=== PATIENT | male | born 1955 | race Caucasian/White ===

== ENCOUNTER 2016-09-13 02:40 | Inpatient (IN) ==
[2016-09-13] MEDS ORDERED: methylPREDNISolone SOD SUC 125 MG/2 ML VIAL IV STA (03:22)
[2016-09-13] MEDS ORDERED: HYDROmorphone 2 MG/1 ML VIAL IV STA ×2 (03:22→04:55)
[2016-09-13] MEDS ORDERED: LEVOFLOXACIN INJ 750 MG in PREMIX 1 EACH IV STA (03:22)
--- NOTE | 2016-09-13 03:28 | EKG Report ---
Stationary ECG Study [facility] ER Test Date: 09/13/2016 2:52:14 AM Pat Name: SUZANNE DUNCAN Department: Room: Gender: M Math Tutor: Mitchell : 1955 Requested by: Nehemias Greene Order Number: [id number] Reading MD: LARRY RIVERA Intervals [place] [facility] Rate: 92 P: 40 MI: 194 QRS: 27 QRSD: 94 T: 68 QT: 366 QTc: 415 Interpretive Statements SINUS RHYTHM Electronically Signed On 09-13-16 19:07:40 MILLER APPRENTICE by LARRY RIVERA [email or web address]
[2016-09-13] MEDS ORDERED: ALBUTEROL 2.5 MG/3 ML NEB RESP TX SCH (03:30)
[2016-09-13] MEDS ORDERED: LEVOFLOXACIN INJ 150 ML IV ONE (03:31)
[2016-09-13] MEDS ORDERED: TERBUTALINE 1 MG/1 ML VIAL SUBCUT ONE (03:31)
--- NOTE | 2016-09-13 03:32 | Emergency Department Note ---
Arrival - Arrival Chief Complaint: Shortness of Breath Stated Complaint: kidney stones/heart sob ED Nursing Triage Note: pt to triage c/o abd pain since last night. pt had litho for a 18 stone in right kidney on saturday. pt sees dr bermudez. pt was seen in dr carol irvin office and had low sats in 70. dr irvin wanted to admit , pt refused. pt sats 83 on room air in triage Mode of Arrival: Stretcher Limitations: No Limitations Source: Patient Time Seen by Provider: 09/13/16 03:22 - History of Present Illness HPI Narrative: This 61-year-old white male presents with progressive exacerbation of COPD with continuous wheezing, low-grade temperatures, and discolored sputum production. Compounding this is the fact that the patient had lithotripsy 48 hours ago and is continuing to have significant right flank pain without passage of material or hematuria noted by the patient. He denies any chest pain or palpitations. Currently although uncomfortable he does not appear in any acute distress. Onset (ago): day(s) (patient presents cell days post-onset of symptoms) Consistency: constant Severity: moderate Allergies/Adverse Reactions: Allergies Allergy/AdvReac Type Severity Reaction Status Date / Time Sulfa (Sulfonamide Allergy RASH Verified 09/13/16 02:50 Antibiotics) celecoxib [From Celebrex] AdvReac Severe difficulty Verified 09/13/16 02:50 voiding morphine AdvReac Severe Confusion Verified 09/13/16 02:50 cefixime [From Suprax] AdvReac Unknown Swelling Verified 09/13/16 02:50 of Lip/Tongue/Throat Amoxicillin AdvReac Unknown/Unable Verified 09/13/16 02:50 to obtain Home Medications: Home Medications Medication Instructions Recorded Confirmed Type Aspirin Tab 325 mg PO DAILY 02/08/15 09/10/16 History Atorvastatin [Lipitor] 20 mg PO BEDTIME 02/08/15 09/10/16 History Furosemide Tab [Lasix Tab] 20 mg PO DAILY 02/08/15 09/10/16 History Levothyroxine Tab [Synthroid Tab] 100 mcg PO DAILY@0700 02/08/15 09/10/16 History Metoprolol Succinate Xl [Toprol Xl] 100 mg PO DAILY 02/08/15 09/10/16 History Omeprazole [Prilosec] 20 mg PO DAILY 02/08/15 09/10/16 History Potassium Chloride 10 meq PO BID 02/08/15 09/10/16 History amLODIPine [Norvasc] 10 mg PO DAILY 02/08/15 09/10/16 History rOPINIRole [Requip] 0.5 mg PO BEDTIME 11/02/15 09/10/16 History Tamsulosin [Flomax] 0.4 mg PO DAILY 09/10/16 09/10/16 History Review of System - Review of System 12 point system: reviewed and no additional remarkable complaints except as stated - Review of System Constitutional: Present: as per HPI Respiratory: Present: as per HPI Genitourinary male: Present: as per HPI Medical,Surgical,& Family Hx - Medical History Cardio: History of: Cerebrovascular Disease, Hypertension No history of: Aneurysm, Cardiac Dysrhythmia, Congenital Heart Disease, CHF, CAD, [place], Pacemaker, PVD, Valvular Heart Disease, Cardiovascular Problems Psychological: No history of: Psychiatric Problems Neurology: History of: Cerebrovascular Accident (1980), Peripheral Neuropathy No history of: Brain Aneurysm, Cerebral Hemorrhage, Cerebral Palsy, Dementia , Migraine, Multiple Sclerosis, Parkinson's Disease, Seizures, TIA, Vertigo, Neurologocal Cancer, Neurological Problems HEENT: History of: Ear Problem ([place]), Eye Problem (reading glasses) Endocrine: History of: Dyslipidemia, Thyroid Disorder Rheumatology: History of;: Rheumatoid Arthritis No history of;: Fibromyalgia, Gout, Myasthenia Gravis, Rheumatological Problems Respiratory: No history of: Respiratory Problems Renal: History of: Renal Problems (long history of ureteral lithiasis) Genitourinary: History of: Kidney Stones Gastrointestinal: History of: Diverticulitis/ Diverticulosis, GERD, Hemorrhoids , GI Problems No history of: Hepatitis, Liver Problems, Polyps Musculoskeletal: History of: Back/Neck Problems, Degenerative Disk Disease No history of: Herniated Disk, Osteoporosis, Musculoskeletal Cancer, Musculoskeletal Problems Hematology: History of: Clotting Problems (hematoma surgery to left leg 1979) No history of: Blood Transfusion Reaction Other: History of: MRSA (left leg and right arm) No history of: Anesthesia Reactions, Cancer - Surgical History Cardiac Surgeries: Sugical HX of: Cardiac Catheterization, Cardiac Surgery ( 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), Carotid Endarterectomy (right) Patient Denies: Femoral-Popliteal Bypass Graft, Internal Defibrillator, Vascular Access Devices Thoracic Surgeries: Surgical HX of;: Kidney (Renal Surgery) (BILATERAL), Lithotripsy Neurologic Surgeries: Patient denies: Brain Aneurysm, Cerebral Hemorrhage, Neurologic Surgery HEENT Surgeries: Surgical HX of: Carotid Endarterectomy (right), Eye Surgery ( cataract left eye) Patient denies: Tonsilectomy & Adenoidectomy Abdominal Surgeries: Surgical HX of: Abdominal Surgery (COLECTOMY DR LUCINA CASEY 10/2015.), Appendectomy, Cholecystectomy, Colonoscopy (11/02/2015), EGD, Hernia Repair (dr mcintyre 8-9 years ago) Patient denies: Splenectomy Orthopedic Surgeries: Surgical HX of;: Orthopedic Surgery (right shoulder replacement, left ankle fusion x2, LT ARM SURGERY, LT LEG SX), Total Hip Replacement, Total Knee Replacement (bilateral) - Family History Family History: Reports;: Family Cancer (father), Family Diabetes (mother), Family Heart Disease (mother brother) Denies;: Family Anesthesia Reaction, Family Hypertension, Family Psychiatric Problems, Family Stroke - Social History Smoking Status: Never smoker Frequency of Alcohol Use: None Type of Drug Use: None Exam Physical Examination: GENERAL: Well developed, well nourished elderly white male in no acute distress. HEENT: Normocephalic. No trauma. Moist mucous membranes. EOMI. PERRLA. ENT clear NECK: Supple. No adenopathy. CARDIAC: Regular. No murmurs. Heart rate 92. CHEST: Clear to auscultation. No respiratory distress. ABDOMEN: Soft. Nontender. Active bowel sounds. EXTREMITIES: No trauma. Normal ROM. No pedal edema. SKIN: No diaphoresis. No rash. NEURO: Alert. Neuro intact No focal deficits. Vital Signs: Vital Signs Temperature 98.5 F 09/13/16 02:44 Pulse Rate 90 09/13/16 03:37 Respiratory Rate 25 H 09/13/16 03:37 Blood Pressure 164/84 09/13/16 02:44 O2 Sat by Pulse Oximetry 95 09/13/16 03:37 Course - Reevaluation(s) Reevaluation #1: Discussed with patient hospitalization for stabilization of lungs and reevaluate renal stone status - Consultations Consultation #1: Discussed with Dr. Christopher Goodson who will admit to Dr. Irvin for further evaluation and treatment. Results - Labs CBC & BMP: 09/13/16 03:35 02/02/17 03:35 Labs: I reviewed the laboratory - Impressions EKG: Sinus rhythm at 92 with normal OK interval and QRS duration. Normal ST segments. No acute injury pattern noted. - Diagnostic Findings Procedure: Chest x-ray: image reviewed by me, report reviewed by me (no acute disease) Disposition Clinical Impression: exacerbation COPD, persistent renal colic, exacerbation COPD, COPD exacerbation , Renal colic Case discussed with: patient Disposition: Still a Patient Time of Disposition: 05:21
[2016-09-13 03:37] LABS: Basophils # 0.1 10*3/uL (0.0-0.2); Basophils % 0.5 % (0.0-0.8); Eosinophils # 0.2 10*3/uL (0.0-0.87); Eosinophils % 1.5 % (0.00-10.9); Hemoglobin 12.9 GM/DL (14.0-18.0); Immature Granulocytes % 0.5 %; Immature Granulocytes Absolute 0.05 #; Lymphocytes # 1.4 10*3/uL (1.4-4.0); Lymphocytes % 13.4 % (21.2-54.2); Mean Corpuscular HGB Conc 31.5 GM/DL (32-36); Mean Corpuscular Hemoglobin 33 PG (27-34); Mean Corpuscular Volume 104.3 FL (87-102); Mean Platelet Volume 9.3 FL (9.6-12.0); Monocytes # 0.9 10*3/uL (0.11-0.8); Monocytes % 8.6 % (1.7-12.7); Neutrophils # 7.8 10*3/uL (1.4-7.4); Neutrophils % 75.5 % (38.7-73.9); Platelet Count 211 T/CUMM (130-400); Red Blood Count 3.93 MC/CUMM (3.8-5.5); Red Cell Distribution Width 15.3 % (9.3-17.3); White Blood Count 10.3 T/CUMM (4-12)
[2016-09-13] MEDS: TERBUTALINE 1 MG/1 ML VIAL SUBCUT SCH ×2 (03:37→04:04)
[2016-09-13] MEDS ORDERED: HYDROmorphone 2 MG/1 ML VIAL ONE ×2 (03:38→04:58)
[2016-09-13] MEDS ORDERED: methylPREDNISolone SOD SUC 125 MG/2 ML VIAL ONE (03:38)
[2016-09-13 03:47] LABS: PT Patient Result 10.7 SECS
[2016-09-13 03:57] LABS: Alanine Aminotransferase 32 U/L (16-61); Albumin 4.1 G/DL (3.4-5.0); Alkaline Phosphatase 124 U/L (45-117); Aspartate Amino Transferase 22 U/L (0-37); Blood Urea Nitrogen 22 MG/DL (7-18); Calcium 8.8 MG/DL (8.5-10.1); Glucose 144 MG/DL (74-106); Osmolality,Calculated 288.1 MOS/KG (273-304); Potassium 3.7 MMOL/L (3.5-5.1); Sodium 142 MMOL/L (136-145); Total Protein 7.7 G/DL (6.4-8.3); Troponin I Only < 0.015 NG/ML (0.00-0.045)
[2016-09-13] MEDS ORDERED: ATORVASTATIN 40 MG TABLET PO STA (05:24)
[2016-09-13] MEDS ORDERED: METOPROLOL SUCCINATE XL 100 MG TABLET PO ONE (05:24)
[2016-09-13] MEDS ORDERED: ONDANSETRON 4 MG/2 ML VIAL IV PRN (05:24)
[2016-09-13] MEDS ORDERED: amLODIPine 5 MG TABLET PO STA (05:24)
[2016-09-13] MEDS: LEVOTHYROXINE 100 MCG TABLET PO SCH (06:22)
--- NOTE | 2016-09-13 06:31 | XRay Report ---
Referring Physician: Nehemias Orellana Exam: XR chest 1V portable Date: September 13, 2016 at 3:16 AM Reason: Shortness of breath Comparison: Chest one view portable November 06, 2015 Findings: The cardiac silhouette is upper normal in size. There are minimal scattered opacities within both lower lung zones. This likely represents atelectasis and possibly minimal pulmonary edema. No pneumothorax is identified. No acute osseous process is seen. Note is made of surgical change at the right shoulder with a proximal right humeral prosthesis. Impression: There are minimal scattered opacities within both lower lung zones. This likely represents atelectasis and possibly minimal pulmonary edema. PROCEDURE INTERPRETED AT [facility] DEPARTMENT OF RADIOLOGY Final Report Signed by: Dr. Linda LEE
[2016-09-13] MEDS: HYDROmorphone 2 MG/1 ML VIAL IV PRN ×2 (06:34→10:24)
[2016-09-13 07:55] LABS: Pt O2 Delivery Device Venturi Mask
[2016-09-13 07:56] LABS: ABG Base Excess 1.8 MMOL/L (-2.5-2.5); ABG HCO3 25.8 MMOL/L (20-26); ABG Oxygen Saturation 90.1 % (95-100); ABG PO2 62.2 MM HG (80-95); ABG TCO2 26.7 MMOL/L (23-27)
--- NOTE | 2016-09-13 08:08 | Pulmonology Consult Note ---
Assessment and Plan (1) Congestive heart failure Status: Acute Assessment and plan: Patient has elevated BNP and edema. Basilar crackles. I suspect he is ahead on fluids and may have congestive heart failure. We need an echo cardiogram. Agree with empiric diuresis. Current Visit: Yes (2) Acute and chronic respiratory failure Status: Acute Assessment and plan: ABG show hypoxemia with an elevated PCO2. Patient has never been a smoker. He may have obesity hypoventilation syndrome. It does not appear that he has overdosed on pain medications. Pulmonary embolism is a consideration as well having had a hip replacement 2 months ago. Will evaluate with a CT PE protocol , echocardiogram, and venous Dopplers. Chronic interstitial lung disease is a possibility as well. Agree with empiric treatment with antibiotics. Current Visit: Yes (3) Renal calculus, right Status: Chronic Assessment and plan: Had recent lithotripsy and still having some flank pain. Current Visit: No (4) Hypertensive cardiovascular disease Status: Chronic Assessment and plan: Blood pressure is a little on the high side. Need to try to get systolic to 140 or less. Current Visit: No History of Present Illness Chief complaint: shortness of breath History of present illness: Mr. Koroma is a 61 year old male who had a lithotripsy a few days ago. He had fever that evening. He was short of breath yesterday and saw Dr. Jaffe in the office. He declined admission. He came into the emergency room early this morning with an O2 sat in the low 80s on room air. He was admitted to ICU. He' s now on 50% Ventimask with an O2 sat in the low 90s. Patient has never been a smoker. He has had a mild cough but is not coughing up sputum. He's been more short of breath over the last couple of months. He had a hip replacement about 2-3 months ago. He had right colon surgery 8 or 9 months ago for a perforated diverticulitis. Patient worked doing electrical work. He's never had any motion of asbestos. He does not know of any heart disease. Home Medications Medication Instructions Recorded Confirmed Type Aspirin Tab 325 mg PO DAILY 02/08/15 09/13/16 History Atorvastatin [Lipitor] 20 mg PO BEDTIME 02/08/15 09/13/16 History Levothyroxine Tab [Synthroid Tab] 100 mcg PO DAILY@0700 02/08/15 09/13/16 History Metoprolol Succinate Xl [Toprol Xl] 100 mg PO DAILY 02/08/15 09/13/16 History Omeprazole [Prilosec] 20 mg PO DAILY 02/08/15 09/13/16 History Potassium Chloride 10 meq PO BID 02/08/15 09/13/16 History amLODIPine [Norvasc] 10 mg PO DAILY 02/08/15 09/13/16 History rOPINIRole [Requip] 0.5 mg PO BEDTIME 11/02/15 09/13/16 History Tamsulosin [Flomax] 0.4 mg PO DAILY 09/10/16 09/13/16 History Furosemide Tab [Lasix Tab] 40 mg PO DAILY 09/13/16 09/13/16 History metOLazone [Metolazone] 2.5 mg PO DAILY 09/13/16 09/13/16 History Allergies Allergy/AdvReac Type Severity Reaction Status Date / Time Sulfa (Sulfonamide Allergy RASH Verified 09/13/16 02:50 Antibiotics) celecoxib [From Celebrex] AdvReac Severe difficulty Verified 09/13/16 02:50 voiding morphine AdvReac Severe Confusion Verified 09/13/16 02:50 cefixime [From Suprax] AdvReac Unknown Swelling Verified 09/13/16 02:50 of Lip/Tongue/Throat Amoxicillin AdvReac Unknown/Unable Verified 09/13/16 02:50 to obtain 12 point system: reviewed and no additional remarkable complaints except as stated - Constitutional Constitutional: Present: fatigue - Cardiovascular Cardiovascular: Present: dyspnea, dyspnea on exertion - Respiratory Respiratory: Present: dyspnea, dyspnea on exertion - Genitourinary Genitourinary: Present: flank pain, hematuria Exam (Pulmonay) H&P - Constitutional Vitals: Period Temp Pulse Resp BP Sys/Wynn Pulse Ox Last 24 Hr 98.2 F 98-105 17-24 151-181/90-121 86-90 Exam: Patient is alert and oriented and cooperative. Systolic blood pressure around 150/100. Vital signs otherwise normal. O2 sat 92% on 50% Ventimask. Pupils react to light. Throat is clear. Neck is supple no bruits. Chest reveals bilateral crackles in the bases. Heart normal rate rhythm no murmurs no rubs no gallops. Abdomen soft obese. Scar in the right upper quadrant from previous gallbladder surgery. Bowel sounds present. Nontender. Extremities no clubbing or cyanosis. He has 1+ edema. Medical,Surgical,& Family Hx - Medical History Cardio: History of: Cerebrovascular Disease, Hypertension No history of: Aneurysm, Cardiac Dysrhythmia, Congenital Heart Disease, CHF, CAD, [place], Pacemaker, PVD, Valvular Heart Disease, Cardiovascular Problems Psychological: No history of: Psychiatric Problems Neurology: History of: Cerebrovascular Accident (1980), Peripheral Neuropathy No history of: Brain Aneurysm, Cerebral Hemorrhage, Cerebral Palsy, Dementia , Migraine, Multiple Sclerosis, Parkinson's Disease, Seizures, TIA, Vertigo, Neurologocal Cancer, Neurological Problems HEENT: History of: Ear Problem ([place]), Eye Problem (reading glasses) Endocrine: History of: Dyslipidemia, Thyroid Disorder Rheumatology: History of;: Rheumatoid Arthritis No history of;: Fibromyalgia, Gout, Myasthenia Gravis, Rheumatological Problems Respiratory: No history of: Respiratory Problems Renal: History of: Renal Problems (long history of ureteral lithiasis) Genitourinary: History of: Kidney Stones (lithotripsy done saturday) Gastrointestinal: History of: Diverticulitis/ Diverticulosis, GERD, Hemorrhoids , GI Problems No history of: Hepatitis, Liver Problems, Polyps Musculoskeletal: History of: Back/Neck Problems, Degenerative Disk Disease No history of: Herniated Disk, Osteoporosis, Musculoskeletal Cancer, Musculoskeletal Problems Hematology: History of: Clotting Problems (hematoma surgery to left leg 1979) No history of: Blood Transfusion Reaction Other: History of: MRSA (left leg and right arm) No history of: Anesthesia Reactions, Cancer - Surgical History Cardiac Surgeries: Sugical HX of: Cardiac Catheterization, Cardiac Surgery ( 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), Carotid Endarterectomy (right) Patient Denies: Femoral-Popliteal Bypass Graft, Internal Defibrillator, Vascular Access Devices Thoracic Surgeries: Surgical HX of;: Kidney (Renal Surgery) (BILATERAL), Lithotripsy Neurologic Surgeries: Patient denies: Brain Aneurysm, Cerebral Hemorrhage, Neurologic Surgery HEENT Surgeries: Surgical HX of: Carotid Endarterectomy (right), Eye Surgery ( cataract left eye) Patient denies: Tonsilectomy & Adenoidectomy Abdominal Surgeries: Surgical HX of: Abdominal Surgery (COLECTOMY DR LUCINA CASEY 10/2015.), Appendectomy, Cholecystectomy, Colonoscopy (11/02/2015), EGD, Hernia Repair (dr mcintyre 8-9 years ago) Patient denies: Splenectomy Orthopedic Surgeries: Surgical HX of;: Orthopedic Surgery (right shoulder replacement, left ankle fusion x2, LT ARM SURGERY, LT LEG SX), Total Hip Replacement, Total Knee Replacement (bilateral) - Family History Family History: Reports;: Family Cancer (father), Family Diabetes (mother), Family Heart Disease (mother brother) Denies;: Family Anesthesia Reaction, Family Hypertension, Family Psychiatric Problems, Family Stroke - Social History Smoking Status: Never smoker Frequency of Alcohol Use: None Type of Drug Use: None Results - Labs CBC & BMP: 09/13/16 03:35 09/13/16 03:35 Lab Results: I have reviewed the past 24 hour labs - Diagnostic Findings Procedure: Chest x-ray: image reviewed by me (slightly increased interstitial markings. Heart is borderline enlarged.)
--- NOTE | 2016-09-13 08:11 | Family Practice History&Phys ---
History of Present Illness Chief complaint: Shortness of breath History of present illness: Mr. Koroma is a 61 year old male Patient is a 61-year-old white male who presented to the office yesterday complaining of increasing shortness of breath and dyspnea on exertion. Patient states that been going on for the last week but his thought it been going on much longer than that. EKG in the office revealed to have sinus rhythm with occasional PACs. Chest x-ray in the office room have diffuse increased interstitial changes consistent with some congestive heart failure. Patient was noted to be quite hypoxic in the office and I urged him to come in the hospital but he flatly refused. His could not sway him either. Patient apparently got worse in the night and changed his mind. Thankfully had a bed available for him. Patient's had recent ESWL for a large right renal stone. He denies any fever or chills and states she is not coughing up any sputum. He denies any chest pain of any nature. Home Medications Medication Instructions Recorded Confirmed Type Aspirin Tab 325 mg PO DAILY 02/08/15 09/13/16 History Atorvastatin [Lipitor] 20 mg PO BEDTIME 02/08/15 09/13/16 History Levothyroxine Tab [Synthroid Tab] 100 mcg PO DAILY@0700 02/08/15 09/13/16 History Metoprolol Succinate Xl [Toprol Xl] 100 mg PO DAILY 02/08/15 09/13/16 History Omeprazole [Prilosec] 20 mg PO DAILY 02/08/15 09/13/16 History Potassium Chloride 10 meq PO BID 02/08/15 09/13/16 History amLODIPine [Norvasc] 10 mg PO DAILY 02/08/15 09/13/16 History rOPINIRole [Requip] 0.5 mg PO BEDTIME 11/02/15 09/13/16 History Tamsulosin [Flomax] 0.4 mg PO DAILY 09/10/16 09/13/16 History Furosemide Tab [Lasix Tab] 40 mg PO DAILY 09/13/16 09/13/16 History metOLazone [Metolazone] 2.5 mg PO DAILY 09/13/16 09/13/16 History Allergies Allergy/AdvReac Type Severity Reaction Status Date / Time Sulfa (Sulfonamide Allergy RASH Verified 09/13/16 02:50 Antibiotics) celecoxib [From Celebrex] AdvReac Severe difficulty Verified 09/13/16 02:50 voiding morphine AdvReac Severe Confusion Verified 09/13/16 02:50 cefixime [From Suprax] AdvReac Unknown Swelling Verified 09/13/16 02:50 of Lip/Tongue/Throat Amoxicillin AdvReac Unknown/Unable Verified 09/13/16 02:50 to obtain - Constitutional Constitutional: Present: fatigue, weakness. Absent: chills, fever(s) - EENT Eyes: Absent: blurry vision, loss of vision Ears: Absent: decreased hearing, ear pain Nose, mouth and throat: Absent: hoarseness, nasal congestion, sinus pressure, sore throat - Cardiovascular Cardiovascular: Present: dyspnea, dyspnea on exertion. Absent: chest pain at rest, chest pain with activity, orthopnea, palpitations, PND - Respiratory Respiratory: Present: cough, dyspnea, dyspnea on exertion, wheezing. Absent: hemoptysis - Gastrointestinal Gastrointestinal: Absent: abdominal pain, diarrhea, dyspepsia, dysphagia, melena , nausea, vomiting - Genitourinary Genitourinary: Present: hematuria. Absent: dysuria, urinary frequency, urinary incontinence - Musculoskeletal Musculoskeletal: Present: back pain (This is chronic). Absent: arthralgias, joint swelling - Neurological Neurological: Absent: confusion, focal weakness, numbness, paresthesias - Psychiatric Psychiatric: Absent: anxiety, confusion - Endocrine Endocrine: Absent: fatigue, polydipsia, polyphagia Medical,Surgical,& Family Hx - Medical History Cardio: History of: Cerebrovascular Disease, Hypertension No history of: Aneurysm, Cardiac Dysrhythmia, Congenital Heart Disease, CHF, CAD, [place], Pacemaker, PVD, Valvular Heart Disease, Cardiovascular Problems Psychological: No history of: Psychiatric Problems Neurology: History of: Cerebrovascular Accident (1980), Peripheral Neuropathy No history of: Brain Aneurysm, Cerebral Hemorrhage, Cerebral Palsy, Dementia , Migraine, Multiple Sclerosis, Parkinson's Disease, Seizures, TIA, Vertigo, Neurologocal Cancer, Neurological Problems HEENT: History of: Ear Problem ([place]), Eye Problem (reading glasses) Endocrine: History of: Dyslipidemia, Thyroid Disorder Rheumatology: History of;: Rheumatoid Arthritis No history of;: Fibromyalgia, Gout, Myasthenia Gravis, Rheumatological Problems Respiratory: No history of: Respiratory Problems Renal: History of: Renal Problems (long history of ureteral lithiasis) Genitourinary: History of: Kidney Stones (lithotripsy done saturday) Gastrointestinal: History of: Diverticulitis/ Diverticulosis, GERD, Hemorrhoids , GI Problems No history of: Hepatitis, Liver Problems, Polyps Musculoskeletal: History of: Back/Neck Problems, Degenerative Disk Disease No history of: Herniated Disk, Osteoporosis, Musculoskeletal Cancer, Musculoskeletal Problems Hematology: History of: Clotting Problems (hematoma surgery to left leg 1979) No history of: Blood Transfusion Reaction Other: History of: MRSA (left leg and right arm) No history of: Anesthesia Reactions, Cancer - Surgical History Cardiac Surgeries: Sugical HX of: Cardiac Catheterization, Cardiac Surgery ( 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), Carotid Endarterectomy (right) Patient Denies: Femoral-Popliteal Bypass Graft, Internal Defibrillator, Vascular Access Devices Thoracic Surgeries: Surgical HX of;: Kidney (Renal Surgery) (BILATERAL), Lithotripsy Neurologic Surgeries: Patient denies: Brain Aneurysm, Cerebral Hemorrhage, Neurologic Surgery HEENT Surgeries: Surgical HX of: Carotid Endarterectomy (right), Eye Surgery ( cataract left eye) Patient denies: Tonsilectomy & Adenoidectomy Abdominal Surgeries: Surgical HX of: Abdominal Surgery (COLECTOMY DR LUCINA CASEY 10/2015.), Appendectomy, Cholecystectomy, Colonoscopy (11/02/2015), EGD, Hernia Repair (dr mcintyre 8-9 years ago) Patient denies: Splenectomy Orthopedic Surgeries: Surgical HX of;: Orthopedic Surgery (right shoulder replacement, left ankle fusion x2, LT ARM SURGERY, LT LEG SX), Total Hip Replacement, Total Knee Replacement (bilateral) - Family History Family History: Reports;: Family Cancer (father), Family Diabetes (mother), Family Heart Disease (mother brother) Denies;: Family Anesthesia Reaction, Family Hypertension, Family Psychiatric Problems, Family Stroke - Social History Smoking Status: Never smoker Frequency of Alcohol Use: None Type of Drug Use: None Exam - Constitutional Vitals: Period Temp Pulse Resp BP Sys/Wynn Pulse Ox Last 24 Hr 98.2 F 98-105 17-24 151-181/90-121 86-90 Exam: General: Objective patient is a well-developed white male who is dyspneic at rest. Yesterday in the office he exhibited pursed lip breathing. He is able to give good history. In spite of his hypoxia he is in good spirits and his usual garrulous self HEENT: Pupils equal and reactive to light. Patent nares and airway Neck: No meningismus, adenopathy, thyromegaly. There are no auscultated carotid bruits. Cardiovascular: Regular rhythm. No murmurs or gallops Chest: Patient is noted to have expiratory rales at both bases and mild expiratory wheezes bilaterally. Abdomen: Soft nontender to palpation No masses, rebound, guarding or tenderness. Neuro: Cranial nerves intact and DTRs and strength symmetric in all extremities. Dermatologic: No evidence of abnormal lesions or masses. Musculoskeletal: There is no joint swelling or tenderness or deformity. Extremities: There is no calf swelling or tenderness., No edema seen My impression could not be entered in the computer the patient appears to have an atypical pneumonia as well as respiratory failure with CO2 retention. I am going to order CT the chest to ensure that is not had a pulmonary embolus, Dr. Castanon has been consulted as well. Results - Labs CBC & BMP: 09/13/16 03:35 09/13/16 03:35 Lab Results: I have reviewed the past 24 hour labs - Diagnostic Findings Procedure: Chest x-ray: report reviewed by me (Diffuse interstitial changes)
[2016-09-13] MEDS: PANTOPRAZOLE 40 MG TABLET PO SCH (08:17)
[2016-09-13] MEDS: FUROSEMIDE 40 MG/4 ML VIAL IV SCH ×2 (08:18→15:22)
[2016-09-13] MEDS: TAMSULOSIN 0.4 MG CAPSULE PO SCH (08:18)
[2016-09-13] MEDS: SPIRONOLACTONE 25 MG TABLET PO SCH ×2 (08:18→20:45)
[2016-09-13 08:55] LABS: Apearance,Urine CLEAR (Clear); Bilirubin,Urine Negative (Negative); Blood, Urine Moderate mg/dL (Negative); Glucose,Urine (UA) 50 mg/dL (Negative); Ketones,Urine Negative (Negative); Nitrite,Urine Negative (Negative); Protein,Urine 100 MG/DL; RBC,Urine 23 /HPF (0-4); Squamous Epithelial Cell,Urine Occasional /HPF (0-10); Urine Color Yellow (Yellow); Urine Specific Gravity 1.024 (1.001-1.035); Urine Urobilinogen < 2.0 EU/DL (0.2-1.0); WBC,Urine 9 /HPF (0-6)
[2016-09-13] MEDS: ALBUTEROL/IPRATROPIUM 3 ML NEB RESP TX SCH ×3 (09:02→19:55)
[2016-09-13 09:19] LABS: Barbiturates Screen,Urine Negative (Negative); Benzodiazepines Screen,Urine Positive (Negative); Cannabinoid Screen,Urine Negative (Negative); Opiate Screen,Urine Positive (Negative); Phencyclidine Screen,Urine Negative (Negative)
--- NOTE | 2016-09-13 10:01 | Ultrasound Report ---
Exam: Bilateral lower extremity venous Doppler ultrasound Comparison: 01/24/2015 Clinical history: Leg pain with recent hip replacement Technique: Duplex scan of the lower extremity veins using B-mode/grayscale scaled imaging and Doppler spectral analysis and color flow. Findings: Major venous structures of the lower extremities demonstrate a normal course and caliber. Normal color-flow study and spectral analysis. There is normal compression and augmentation of bilateral common femoral, superficial femoral and popliteal veins. The proximal bilateral greater saphenous veins appear to be patent. Impression: No evidence to suggest deep venous thrombosis within either lower extremity. Ultrasound images were captured and stored. PROCEDURE INTERPRETED AT [facility] DEPARTMENT OF RADIOLOGY Final Report Signed by: Dr. Sujey Carter
--- NOTE | 2016-09-13 10:21 | CT Report ---
Exam: CT chest PE study The total DLP is 576 mGy*cm. Date: 09/13/2016 8:05 AM Indication: Hypoxia Comparison: No prior CT imaging is available for comparison. Chest radiograph dated 09/13/16 Technical: Images were obtained from the thoracic inlet through the lung bases with 80 cc of Omnipaque 350 with axial and coronal imaging available for review. Findings: Please note, there is metallic hardware within the right proximal humerus causing extensive streak artifact within the adjacent soft tissues and limiting evaluation. Mediastinum/vessels/lymph nodes: Heart and great vessels appear unremarkable. There is no evidence of pericardial effusion. Pulmonary arteries appear patent with no evidence of filling defects to suggest pulmonary emboli. The distal segmental/subsegmental pulmonary arteries are poorly evaluated given respiratory motion and contrast bolus timing. Lungs: There is diffuse mild intra-and interlobular septal thickening noted within the dependent lungs likely representing edema changes. There is also minimal posterior basilar atelectasis. The central airways are patent. There is no pneumothorax. There is no significant pleural effusion. Thyroid: Thyroid gland is poorly evaluated due to streak artifact. The right kidney is only partially imaged with suggestion of at least mild right hydronephrosis and one visualized stone measuring up to 6.3 mm. There is also suggestion of right perinephric fluid, which is only partially imaged. Cholecystectomy clips are noted. BONES: No acute or suspicious appearing osseous abnormalities are identified. Impression: 1. No evidence of central or saddle pulmonary emboli. The distal segmental/subsegmental pulmonary arteries are poorly evaluated. 2. Minimal scattered intra-and interlobular septal thickening with posterior basilar atelectasis likely represent a degree of underlying interstitial edema. 3. Partially imaged suggestion of right hydronephrosis with at least one renal stone visualized measuring approximately 6 mm and suggestion of right perinephric fluid may represent obstructive uropathy. Correlation with recent surgical history and consider further evaluation with CT imaging of abdomen/pelvis as clinically indicated. Findings and recommendations discussed with the patient's nurse via telephone at 10:18 AM on the day of the procedure. PROCEDURE INTERPRETED AT [facility] DEPARTMENT OF RADIOLOGY Final Report Signed by: Keo Mcgee
[2016-09-13] MEDS: methylPREDNISolone SOD SUC 40 MG/1 ML VIAL IV SCH ×2 (10:25→20:45)
[2016-09-13] MEDS ORDERED: methylPREDNISolone SOD SUC 125 MG/2 ML VIAL IV SCH (12:00)
[2016-09-13] MEDS: rOPINIRole 0.25 MG TABLET PO SCH (20:45)
[2016-09-14] MEDS: ALBUTEROL/IPRATROPIUM 3 ML NEB RESP TX SCH ×4 (00:32→19:22)
[2016-09-14 04:05] LABS: ABG Base Excess 7.6 MMOL/L (-2.5-2.5); ABG HCO3 31.3 MMOL/L (20-26); ABG Oxygen Saturation 94.9 % (95-100); ABG PCO2 55.9 MM HG (35-48); ABG PH 7.399 (7.35-7.45); ABG PO2 70.5 MM HG (80-95); Allen Test Positive; Pt O2 Delivery Device Venturi Mask
[2016-09-14 05:48] LABS: Calcium 8.9 MG/DL (8.5-10.1); Magnesium 2.2 MG/DL (1.8-2.4); Osmolality,Calculated 287.3 MOS/KG (273-304); Potassium 3.8 MMOL/L (3.5-5.1)
[2016-09-14] MEDS: LEVOTHYROXINE 100 MCG TABLET PO SCH (06:34)
--- NOTE | 2016-09-14 07:13 | Pulmonology Progress Note ---
Pulmonary - PN: Subj Interval history: This 61-year-old white male was admitted 2 days ago with increasing shortness of breath. He had an elevated BNP. His CT scan shows some interstitial edema and small pleural effusions. An echocardiogram is pending. We have given him Lasix and is better. ABGs are improved. He has an elevated PCO2. He may have obesity hypoventilation syndrome with superimposed congestive heart failure. We checked for pulmonary emboli since she had a hip replacement a couple months ago. No signs of emboli on CT scan. Venous Dopplers were negative also. At this point we can change him to nasal oxygen just shoot for an O2 sat of 88-92% . We'll stop his steroids. He does not have COPD. Need echo report. His chest CT indicates right hydronephrosis. We need to have neurology to see him. Exam (Progress Note) - Constitutional Vitals: Period Temp Pulse Resp BP Sys/Wynn Pulse Ox Last 24 Hr 97.6 F-98.6 F 76-104 16-25 125-162/81-114 87-95 Exam: Patient is alert oriented cooperative. Vital signs normal. O2 sat 93% on Ventimask. Pupils react to light. Throat is clear. Neck supple no bruits. Chest reveals some minimal basilar crackles. No wheezes. Heart normal rate rhythm no murmurs. Abdomen obese unable to palpate abdominal organs. Bowel sounds present. Extremities no clubbing or cyanosis. He does have peripheral edema. Calves nontender. Results - Labs CBC & BMP: 09/13/16 03:35 09/14/16 04:49 Lab Results: I have reviewed the past 24 hour labs - Diagnostic Findings Procedure: CT - chest: image reviewed by me (no signs of pulmonary emboli. Interstitial edema and small pleural effusions are noted. This is most consistent with congestive heart failure. Right hydronephrosis noted. Further evaluation to be done there.) Assessment and Plan (1) Congestive heart failure Status: Acute Assessment and plan: Patient has elevated BNP and edema. Basilar crackles. I suspect he is ahead on fluids and may have congestive heart failure. We need an echo cardiogram. Agree with empiric diuresis. 09/14/16 findings are consistent with congestive heart failure. We still need an at coat to help categorize. He feels better after diuresis. I will stop his steroids. Discussed case with Dr. Jesus Jaffe Current Visit: Yes (2) Acute and chronic respiratory failure Status: Acute Assessment and plan: ABG show hypoxemia with an elevated PCO2. Patient has never been a smoker. He may have obesity hypoventilation syndrome. It does not appear that he has overdosed on pain medications. Pulmonary embolism is a consideration as well having had a hip replacement 2 months ago. Will evaluate with a CT PE protocol , echocardiogram, and venous Dopplers. Chronic interstitial lung disease is a possibility as well. Agree with empiric treatment with antibiotics. 09/14/16 PCO2 is down to 55. I think he has an element of obesity hypoventilation syndrome. Congestive heart failure in this range normally doesn 't cause an elevated PCO2. We will need to evaluate with sleep study when he is improved. Current Visit: Yes (3) Renal calculus, right Status: Chronic Assessment and plan: Had recent lithotripsy and still having some flank pain. 09/14/[address] indicates some right hydronephrosis. Needs further evaluation and urology consult. Again discussed case with Dr. Jesus Jaffe who is going to address this. Current Visit: No (4) Hypertensive cardiovascular disease Status: Chronic Assessment and plan: Blood pressure is a little on the high side. Need to try to get systolic to 140 or less. 09/14/16 blood pressure fairly well controlled. Current Visit: No
--- NOTE | 2016-09-14 07:28 | XRay Report ---
Referring Physician: Jaycob Jaffe Exam: XR chest 1V portable Date: September 14, 2016 at 3:02 AM Reason: Hypoxia Comparison: Chest one view portable September 13, 2016, CT chest PE study of September 13, 2016 Findings: There is mild cardiomegaly. Minimal scattered opacities are present within both lungs, mainly at the lung bases. This likely represents atelectasis and possibly minimal pulmonary edema. No pneumothorax is identified, and no definite pleural fluid is seen. The osseous structures appear stable with a right shoulder prosthesis. Impression: There has been no significant change. PROCEDURE INTERPRETED AT [facility] DEPARTMENT OF RADIOLOGY Final Report Signed by: Dr. Linda Charles
--- NOTE | 2016-09-14 07:57 | Family Practice Progress Note ---
Family Practice - PN: Subj Interval history: Patient states he is actually feeling a bit better this morning certainly seems to be breathing better and ABGs this morning showed that his CO2 was dropped into the 50s. CT scan yesterday showed no evidence of pulmonary embolus but he certainly had diffuse interstitial changes and small effusions bilaterally. Hydronephrosis is noted of the right kidney on CT but it certainly was limited. I called the lab and his urine culture thus far is negative. He was noted to have significant amount of stranding around the right kidney on the CT scan. I will get a renal colic CT of the abdomen and pelvis on him today and ask urology to see him as well. I note that he put out over 4 L of urine yesterday but his measured weight actually went up slightly, I suspect this is erroneous. Exam (Progress Note) - Constitutional Vitals: Period Temp Pulse Resp BP Sys/Wynn Pulse Ox Last 24 Hr 97.6 F-98.6 F 76-104 16-25 125-162/81-114 87-95 Exam: Objective a well-developed white male no acute distress. He appears comfortable with face mask O2. His oxygen saturation is hovering around 90%. He is able give a good history and is in good spirits. Cardiovascular: Heart rates regular with no murmurs or gallops. Respiratory: He has bilateral rales which are reduced from yesterday. Abdomen: Abdomen soft, somewhat distended and nontender. Extremities: There is no calf swelling or tenderness. Results - Labs CBC & BMP: 09/13/16 03:35 09/14/16 04:49 Lab Results: I have reviewed the past 24 hour labs Assessment and Plan (1) Hydronephrosis Status: Acute Assessment and plan: 09/14/2016: Renal colic CT to be ordered and ask urology to see him as well. Current Visit: Yes (2) Congestive heart failure Status: Acute Assessment and plan: 09/14/2016: Patient has had over 4 L of urine output. His dyspnea is certainly improved. Current Visit: Yes (3) Acute and chronic respiratory failure Status: Acute Assessment and plan: 09/14/2016: ABGs were improved with diuresis. Current Visit: Yes
[2016-09-14] MEDS: FUROSEMIDE 40 MG/4 ML VIAL IV SCH ×2 (08:10→17:21)
[2016-09-14] MEDS: TAMSULOSIN 0.4 MG CAPSULE PO SCH (09:24)
[2016-09-14] MEDS: PANTOPRAZOLE 40 MG TABLET PO SCH (09:24)
[2016-09-14] MEDS: SPIRONOLACTONE 25 MG TABLET PO SCH ×2 (09:25→20:50)
--- NOTE | 2016-09-14 09:34 | CT Report ---
CT abdomen pelvis Indication: Right-sided hydronephrosis Comparison: 17 August 2016 Technique: Axial CT imaging of the abdomen and pelvis is performed without contrast. Findings: Cardiac and lung bases are within normal limits CT abdomen: The liver spleen pancreas and adrenal glands are normal in size and density. No evidence of focal lesion is demonstrated in these solid organs. There is residual streaky contrast enhancement from recent CT of the right kidney with right hydronephrosis and hydroureter extending into the pelvis. Left kidney appears within normal limits. The bowel caliber is normal and no wall thickening or adjacent inflammatory change is seen. Surgical changes are present in the descending colon. No evidence of free fluid or free air is present. CT pelvis: Calculus is present in the right ureterovesical junction that measures 4.5 mm in width with a length of 1.2 cm. The bowel and bladder appear within normal limits. The pelvic organs show no evidence of abnormality Impression: Severe right hydronephrosis with calculus in the right ureterovesical junction. There is delay of contrast passage from previous procedure or present in the right kidney consistent with high-grade obstruction. PROCEDURE INTERPRETED AT [facility] DEPARTMENT OF RADIOLOGY Final Report Signed by: Dr. Allen Jimenez
--- NOTE | 2016-09-14 09:38 | ECHO Report ---
Jayy Koroma Exam Date: 09/13/2016 10:07 Referring Physician: Technologist: Aly Henson Age: 61 Ht (in): Wt (lb): Gender: M Exam Location: [facility] Echo Indications: dyspnea, HTN BP: / HR: Rhythm: Sinus Technical Quality: Technically difficult study IMPRESSIONS EF 60 %. Grade I/IV diastolic dysfunction (abnormal relaxation filling pattern), normal to mildly elevated filling pressures. Normal right ventricular size. The right atrium is mildly enlarged. Mildly increased left atrial diameter. Mildly thickened mitral valve. Trace mitral valve regurgitation. Aortic valve sclerosis. Trace aortic valve regurgitation. Moderate tricuspid valve regurgitation. PAP 50 mmHG. Pulmonic valve not well visualized. No pericardial effusion. Normal size aortic root and proximal ascending aorta. MEASUREMENTS (Male / Female) Normal Values 2D ECHO LV Diastolic Diameter PLAX 4.8 cm 4.2 - 5.9 / 3.9 - 5.3 cm LV Systolic Diameter PLAX 3.5 cm LV Fractional Shortening PLAX 26.6 % IVS Diastolic Thickness 1.4 cm 0.6 - 1.0 / 0.6 - 0.9 cm LVPW Diastolic Thickness 1.5 cm 0.6 - 1.0 / 0.6 - 0.9 cm RV Internal Dim ED PLAX 2.4 cm Aortic Root Diameter 3.1 cm LA Systolic Diameter LX 4.3 cm 3.0 - 4.0 / 2.7 - 3.8 cm DOPPLER TR Peak Velocity 318.0 cm/s TR Peak Gradient 40.4 mmHg FINDINGS Left Ventricle EF 60 %. Grade I/IV diastolic dysfunction (abnormal relaxation filling pattern), normal to mildly elevated filling pressures. Right Ventricle Normal right ventricular size. Right Atrium The right atrium is mildly enlarged. Left Atrium Mildly increased left atrial diameter. Mitral Valve Mildly thickened mitral valve. Trace mitral valve regurgitation. Aortic Valve Aortic valve sclerosis. Trace aortic valve regurgitation. Tricuspid Valve Morphologically normal tricuspid valve. Moderate tricuspid valve regurgitation. PAP 50 mmHG. Pulmonic Valve Pulmonic valve not well visualized. Pericardium No pericardial effusion. Aorta Normal size aortic root and proximal ascending aorta. Nnamdi Schultz (Electronically Signed) Final Date: 13 September 2016 17:41
--- NOTE | 2016-09-14 10:22 | Cardiology Consult Note ---
<Jo Bradshaw E - Last Filed: 09/14/16 10:14> Assessment and Plan - Time spent with patient Time spent with patient: Less than 30 minutes (1) Pre-operative cardiovascular examination Status: Acute Assessment and plan: See plan of care listed above. Current Visit: Yes (2) Dyslipidemia Status: Chronic Assessment and plan: Continue lipid-lowering agent. Lipid profile in the morning. Current Visit: Yes (3) Sleep disorder Status: Chronic Assessment and plan: Outpatient sleep study will the ordered. Current Visit: Yes (4) Obesity (BMI 30.0-34.9) Status: Chronic Assessment and plan: Dietary counseling prior to discharge. Current Visit: Yes (5) Hypertension Status: Chronic Assessment and plan: At this point, suboptimally controlled. However, given the discomfort he is experiencing, I suspect this has increased his blood pressure will continue to monitor and follow along making recommendations accordingly. Current Visit: No Qualifiers: Hypertension type: essential hypertension (6) COPD exacerbation Status: Acute Assessment and plan: Acute COPD exacerbation. Continue current plan of care. Current Visit: Yes (7) Hydronephrosis Status: Acute Assessment and plan: Patient in need of urological procedure for hydronephrosis. Current Visit: Yes History of Present Illness - Data of Consult Patient: new to practice Consult date: 09/14/16 Requesting Physician: Marcial Davies - Consult Narrative Reason for consult: preoperative evaluation urological procedure History of present illness: Mr. Koroma is a 61 year old male who saw Dr. Watt approximately 10 years ago. He has not required additional follow-up. Risk factors include: hypertension, dyslipidemia, obesity. Possible peripheral vascular disease. He required some type of a bypass to his right carotid artery with a vein from his right lower extremity in the late 1980s. Patient was admitted September 13, 2016 with progressive exacerbation of COPD with continuous wheezing, low-grade temperatures and discoloration of sputum. Patient had undergone lithotripsy approximately 48 hours prior to admission he continued to have significant right flank pain without passage of material or hematuria noted by the patient. Patient has begun to have difficulty urinating and he is noted to have hydronephrosis of right kidney per CT. He is being readied for urological procedure this morning (including renal stenting) to be performed by Dr. Davies. Patient denies chest pain, heaviness, tightness. He is usually very active. He had left hip surgery in the Fall 2015 and this has kept him more sedentary than usual but overall he sees no decrease in his exercise tolerance. There was some concern as to whether the patient had congestive heart failure as he had some interstitial fluid per chest x-ray recently. Echocardiogram 09/13/2016 revealed an ejection fraction of 60%, grade 1/IV diastolic dysfunction, no significant valvular abnormality. His EKG reveals normal sinus rhythm without evidence of old infarct or abnormality. He has not had recent stress test or cardiac catheterization as he has had no prior complaints of angina. He tells me he saw Dr. Watt approximately 10 years ago for low potassium causing an irregular heart rhythm. The potassium was replaced and he did not require follow-up. I have discussed the patient's condition with Dr. Schultz. Patient is at low risk for perioperative cardiac complications with upcoming urological procedure. Given the seriousness of the patient's urological condition, these risks are not prohibitive. We are happy to follow along during the hospital stay. CC: Jesus Jaffe MD - Home Medications and Allergies Home Medications: Home Medications Medication Instructions Recorded Confirmed Type Aspirin Tab 325 mg PO DAILY 02/08/15 09/13/16 History Atorvastatin [Lipitor] 20 mg PO BEDTIME 02/08/15 09/13/16 History Levothyroxine Tab [Synthroid Tab] 100 mcg PO DAILY@0700 02/08/15 09/13/16 History Metoprolol Succinate Xl [Toprol Xl] 100 mg PO DAILY 02/08/15 09/13/16 History Omeprazole [Prilosec] 20 mg PO DAILY 02/08/15 09/13/16 History Potassium Chloride 10 meq PO BID 02/08/15 09/13/16 History amLODIPine [Norvasc] 10 mg PO DAILY 02/08/15 09/13/16 History rOPINIRole [Requip] 0.5 mg PO BEDTIME 11/02/15 09/13/16 History Tamsulosin [Flomax] 0.4 mg PO DAILY 09/10/16 09/13/16 History Furosemide Tab [Lasix Tab] 40 mg PO DAILY 09/13/16 09/13/16 History metOLazone [Metolazone] 2.5 mg PO DAILY 09/13/16 09/13/16 History Allergies/Adverse Reactions: Allergies Allergy/AdvReac Type Severity Reaction Status Date / Time Sulfa (Sulfonamide Allergy RASH Verified 09/13/16 02:50 Antibiotics) celecoxib [From Celebrex] AdvReac Severe difficulty Verified 09/13/16 02:50 voiding morphine AdvReac Severe Confusion Verified 09/13/16 02:50 cefixime [From Suprax] AdvReac Unknown Swelling Verified 09/13/16 02:50 of Lip/Tongue/Throat Amoxicillin AdvReac Unknown/Unable Verified 09/13/16 02:50 to obtain Review of systems: REVIEW OF SYSTEMS: - Constitutional Constitutional: Absent: syncope, anorexia, fatigue, night sweats. Per , snores heavily and holds his breath while sleeping. He frequently wakes unrefreshed. - EENT Eyes: Absent: blurry vision, loss of vision, diplopia Ears: Absent: decreased hearing, ear pain, ear discharge - Cardiovascular Cardiovascular: Denies chest pain, heaviness, tightness going or palpitations. Denies shortness of bone exertion. Denies claudication, lightheadedness, syncope or dizziness. - Respiratory Respiratory: Denies CHRIS, cough. Absent: wheezing, hemoptysis, change in phlegm color - Gastrointestinal Gastrointestinal: Denies constipation. Absent: hematemesis, hematochezia, melena, change in bowel habits, nausea - Genitourinary Genitourinary: Acknowledges right flank pain. He is uncomfortable. Difficulty urinating. - Musculoskeletal Musculoskeletal: Present: back pain Absent: joint swelling, muscle cramps, muscle weakness - Neurological Neurological: Present: normal gait without frequent falls. Absent: dizziness, hemiparesis - Psychiatric Psychiatric: Absent: anxiety, depression, difficulty concentrating - Endocrine Endocrine: Absent: cold intolerance, heat intolerance, polyuria, polyphagia, polydipsia - Hematologic/Lymphatic Hematologic/Lymphatic: Present: easy bruising. Absent: easy bleeding, easy bruisability -Integumentary Integumentary: Absent: lesions, rashes, skin breakdown Medical,Surgical,& Family Hx - Medical History Cardio: History of: Cerebrovascular Disease, Hypertension No history of: Aneurysm, Cardiac Dysrhythmia, Congenital Heart Disease, CHF, CAD, OH, Pacemaker, PVD, Valvular Heart Disease, Cardiovascular Problems Psychological: No history of: Psychiatric Problems Neurology: History of: Cerebrovascular Accident (1980), Peripheral Neuropathy No history of: Brain Aneurysm, Cerebral Hemorrhage, Cerebral Palsy, Dementia , Migraine, Multiple Sclerosis, Parkinson's Disease, Seizures, TIA, Vertigo, Neurologocal Cancer, Neurological Problems HEENT: History of: Ear Problem ([place]), Eye Problem (reading glasses) Endocrine: History of: Dyslipidemia, Thyroid Disorder Rheumatology: History of;: Rheumatoid Arthritis No history of;: Fibromyalgia, Gout, Myasthenia Gravis, Rheumatological Problems Respiratory: No history of: Respiratory Problems Renal: History of: Renal Problems (long history of ureteral lithiasis) Genitourinary: History of: Kidney Stones (lithotripsy done saturday) Gastrointestinal: History of: Diverticulitis/ Diverticulosis, GERD, Hemorrhoids , GI Problems No history of: Hepatitis, Liver Problems, Polyps Musculoskeletal: History of: Back/Neck Problems, Degenerative Disk Disease No history of: Herniated Disk, Osteoporosis, Musculoskeletal Cancer, Musculoskeletal Problems Hematology: History of: Clotting Problems (hematoma surgery to left leg 1979) No history of: Blood Transfusion Reaction Other: History of: MRSA (left leg and right arm) No history of: Anesthesia Reactions, Cancer - Surgical History Cardiac Surgeries: Sugical HX of: Cardiac Catheterization, Cardiac Surgery ( 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), Carotid Endarterectomy (right) Patient Denies: Femoral-Popliteal Bypass Graft, Internal Defibrillator, Vascular Access Devices Thoracic Surgeries: Surgical HX of;: Kidney (Renal Surgery) (BILATERAL), Lithotripsy Neurologic Surgeries: Patient denies: Brain Aneurysm, Cerebral Hemorrhage, Neurologic Surgery HEENT Surgeries: Surgical HX of: Carotid Endarterectomy (right), Eye Surgery ( cataract left eye) Patient denies: Tonsilectomy & Adenoidectomy Abdominal Surgeries: Surgical HX of: Abdominal Surgery (COLECTOMY DR LUCINA CASEY 10/2015.), Appendectomy, Cholecystectomy, Colonoscopy (11/02/2015), EGD, Hernia Repair (dr mcintyre 8-9 years ago) Patient denies: Splenectomy Orthopedic Surgeries: Surgical HX of;: Orthopedic Surgery (right shoulder replacement, left ankle fusion x2, LT ARM SURGERY, LT LEG SX), Total Hip Replacement, Total Knee Replacement (bilateral) - Family History Family History: Reports;: Family Cancer (father), Family Diabetes (mother), Family Heart Disease (mother brother) Denies;: Family Anesthesia Reaction, Family Hypertension, Family Psychiatric Problems, Family Stroke - Social History Smoking Status: Never smoker Frequency of Alcohol Use: None Type of Drug Use: None Physical Examination Vital Signs Temp Pulse Resp BP Pulse Ox 98.5 F 99 H 24 164/84 84 L 09/13/16 02:44 09/13/16 02:44 09/13/16 02:44 09/13/16 02:44 09/13/16 02:44 General: Mild discomfort expressed in noted. Having waves of discomfort. Pleasant and cooperative. HEENT: PERRL, normocephalic, atraumatic. Mucous membranes moist. No jaundice noted. Conjunctiva moist and clear, sclerae anicteric Neck: No JVD/HJR, no thyromegaly or lymphadenopathy noted. No carotid bruit appreciated Cardiac: Regular rate and rhythm. No murmur rub or gallop. Lungs: Relatively clear to auscultation without accessory muscle use to assist the respiratory pattern. Intermittently using oxygen. Abdomen: Soft, bowel sounds normoactive. No abdominal bruit or thrill noted. No masses noted. Musculoskeletal: No fluid collection. Decreased range of motion is noted. Extremities: DEANNA hose bilaterally. No clubbing, cyanosis noted. No edema noted. Upper extremity pulses 2+. Lower extremity pulses 2+. Capillary refill less than 3 seconds. Skin: No unusual lesions or rashes. No skin breakdown appreciated. Neuro: Awake, alert and oriented 3. Moves all extremities well without hemiparesis or paralysis. No essential tremor is appreciated. Result/EKG - Labs CBC & BMP: 09/13/16 03:35 09/14/16 04:49 Lab Results: I have reviewed the past 24 hour labs Labs: Laboratory Results - last 24 hr 09/14/16 09/14/16 03:55 04:49 ABG pH 7.399 ABG pCO2 55.9 H ABG pO2 70.5 L ABG HCO3 31.3 H ABG Total CO2 30.0 H ABG O2 Saturation 94.9 L ABG Base Excess 7.6 H FiO2 50.00 Sodium 141 Potassium 3.8 Chloride 98 Carbon Dioxide 31 Anion Gap 15.8 H BUN 23 H Creatinine 1.10 GFR Calculation 93 BUN/Creatinine Ratio 20.00 Glucose 155 H Calculated Osmolality 287.3 Calcium 8.9 Magnesium 2.2 - Diagnostic Findings Procedure: Chest x-ray: report reviewed by me, CT - chest: report reviewed by me - EKG EKG results: interpreted by me EKG shows: sinus rhythm <Jimmy Schultz - Last Filed: 09/14/16 17:43> History of Present Illness - Consult Narrative History of present illness: Cardiology addendum Chart reviewed and patient examined. Patient has right hydronephrosis with an impacted stone in the distal ureter and will require cystoscopy and stone extraction by Dr. Davies Chronic hypertension. No history of OH or heart failure or angina Recent echo showed ejection fraction of 60% with grade 1 diastolic dysfunction, no valvular abnormality. Obstructive sleep apnea suspected Hyperlipidemia taking Lipitor 20 mg daily History of BPH on Flomax 0.4 mg daily EKG shows sinus rhythm with ST-T wave changes only. Chest x-ray mild cardiomegaly but no heart failure or infiltrate Normal cardiac exam Plan For cystoscopy and stone extraction today Dr. Hinojosa to see Will follow rhythm and blood pressure CC: Jesus Jaffe MD Physical Examination Vital Signs Temp Pulse Resp BP Pulse Ox 98.5 F 99 H 24 164/84 84 L 09/13/16 02:44 09/13/16 02:44 09/13/16 02:44 09/13/16 02:44 09/13/16 02:44 Result/EKG - Labs CBC & BMP: 09/13/16 03:35 09/14/16 04:49 Labs: Laboratory Results - last 24 hr 09/14/16 09/14/16 03:55 04:49 ABG pH 7.399 ABG pCO2 55.9 H ABG pO2 70.5 L ABG HCO3 31.3 H ABG Total CO2 30.0 H ABG O2 Saturation 94.9 L ABG Base Excess 7.6 H FiO2 50.00 Sodium 141 Potassium 3.8 Chloride 98 Carbon Dioxide 31 Anion Gap 15.8 H BUN 23 H Creatinine 1.10 GFR Calculation 93 BUN/Creatinine Ratio 20.00 Glucose 155 H Calculated Osmolality 287.3 Calcium 8.9 Magnesium 2.2
--- NOTE | 2016-09-14 11:29 | Event Note ---
The echo has come back showing normal LV function 60% ejection fraction. He has pulmonary hypertension with a peak pressure of 50. This along with his hypercarbia would lead me to think he has obesity hypoventilation syndrome. His O2 sats have been okay at night. I do think we should start him on BiPAP at bedtime. He should be scheduled for a sleep study post discharge.
[2016-09-14] MEDS: HYDROmorphone 2 MG/1 ML VIAL IV PRN ×4 (12:09→19:35)
--- NOTE | 2016-09-14 12:42 | Urology Consultation ---
History of Present Illness - Data of Consult Consult date: 09/14/16 - Consult Narrative History of present illness: Mr. Koroma is a 61 year old male This 61-year-old white male is known to me. He recently had shockwave lithotripsy of a large stone in the right kidney and a recent CT scan shows a large fragment at the ureterovesical junction on the right side with high-grade obstruction. Because of the obstruction on the recommended we put in a right ureteral stent. Will plan on doing this today if cleared medically CC: Jesus Jaffe MD - Home Medications and Allergies Home Medications: Home Medications Medication Instructions Recorded Confirmed Type Aspirin Tab 325 mg PO DAILY 02/08/15 09/13/16 History Atorvastatin [Lipitor] 20 mg PO BEDTIME 02/08/15 09/13/16 History Levothyroxine Tab [Synthroid Tab] 100 mcg PO DAILY@0700 02/08/15 09/13/16 History Metoprolol Succinate Xl [Toprol Xl] 100 mg PO DAILY 02/08/15 09/13/16 History Omeprazole [Prilosec] 20 mg PO DAILY 02/08/15 09/13/16 History Potassium Chloride 10 meq PO BID 02/08/15 09/13/16 History amLODIPine [Norvasc] 10 mg PO DAILY 02/08/15 09/13/16 History rOPINIRole [Requip] 0.5 mg PO BEDTIME 11/02/15 09/13/16 History Tamsulosin [Flomax] 0.4 mg PO DAILY 09/10/16 09/13/16 History Furosemide Tab [Lasix Tab] 40 mg PO DAILY 09/13/16 09/13/16 History metOLazone [Metolazone] 2.5 mg PO DAILY 09/13/16 09/13/16 History Allergies/Adverse Reactions: Allergies Allergy/AdvReac Type Severity Reaction Status Date / Time Sulfa (Sulfonamide Allergy RASH Verified 09/13/16 02:50 Antibiotics) celecoxib [From Celebrex] AdvReac Severe difficulty Verified 09/13/16 02:50 voiding morphine AdvReac Severe Confusion Verified 09/13/16 02:50 cefixime [From Suprax] AdvReac Unknown Swelling Verified 09/13/16 02:50 of Lip/Tongue/Throat Amoxicillin AdvReac Unknown/Unable Verified 09/13/16 02:50 to obtain Exam - Constitutional Vitals: Period Temp Pulse Resp BP Sys/Wynn Pulse Ox Last 24 Hr 98 F-98.6 F 75-102 15-25 123-162/76-101 90-95 Results - Labs CBC & BMP: 09/13/16 03:35 09/14/16 04:49
[2016-09-14] MEDS ORDERED: FAMOTIDINE 20 MG/2 ML VIAL IV ONE (13:36)
[2016-09-14] MEDS ORDERED: CITRIC ACID/SODIUM CITRATE 30 ML UDCUP PO ONE (13:42)
--- NOTE | 2016-09-14 13:52 | Sleep Medicine Consult ---
Assessment and Plan (1) Unspecified sleep apnea Status: Acute Assessment and plan: His symptoms certainly are concerning for sleep apnea and with the severity of his health issues, polysomnography will be set up on an outpatient basis. Have discussed his case with anesthesiology guarding his risk perioperatively for postoperative apneas with sedation and analgesic therapy. Thank you for this consult. Current Visit: Yes (2) Hypertension Status: Chronic Assessment and plan: The prevalence rate for obstructive sleep apnea patients with hypertension is 35 %. That rate can be as high as 80% in patients who require 4 or more medications for blood pressure control. Current Visit: No Qualifiers: Hypertension type: essential hypertension (3) Congestive heart failure Status: Acute Assessment and plan: Untreated sleep apnea can be an exacerbating factor to both systolic and diastolic congestive heart failure. CPAP therapy for obstructive sleep apnea in patients with systolic dysfunction has been shown to improve ejection fraction and at least 3 separate clinical studies. Current Visit: Yes History of Present Illness Chief complaint: sleep apnea History of present illness: Mr. Koroma is a 61 year old male admitted with hydronephrosis who is to undergo ureteral stent later today. During the course of his evaluation, he was noted to have disturb sleep with abnormal breathing and sleep medicine was consulted. His states that he has been a longtime snorer and that she is hurting stopping breathing during his sleep. In recent months, his sleep has become increasingly disturbed disrupted. He usually retires around 9-10 in the evening and will awaken at 5-6 the next morning. He awakens multiple times during the night to urinate. He does have a history of restless legs and disturbance of his sleep due to discomfort. He is on Requip for that. He has had increasing problems with daytime fatigue and sleepiness throughout the day over the last few months. Home Medications Medication Instructions Recorded Confirmed Type Aspirin Tab 325 mg PO DAILY 02/08/15 09/13/16 History Atorvastatin [Lipitor] 20 mg PO BEDTIME 02/08/15 09/13/16 History Levothyroxine Tab [Synthroid Tab] 100 mcg PO DAILY@0700 02/08/15 09/13/16 History Metoprolol Succinate Xl [Toprol Xl] 100 mg PO DAILY 02/08/15 09/13/16 History Omeprazole [Prilosec] 20 mg PO DAILY 02/08/15 09/13/16 History Potassium Chloride 10 meq PO BID 02/08/15 09/13/16 History amLODIPine [Norvasc] 10 mg PO DAILY 02/08/15 09/13/16 History rOPINIRole [Requip] 0.5 mg PO BEDTIME 11/02/15 09/13/16 History Tamsulosin [Flomax] 0.4 mg PO DAILY 09/10/16 09/13/16 History Furosemide Tab [Lasix Tab] 40 mg PO DAILY 09/13/16 09/13/16 History metOLazone [Metolazone] 2.5 mg PO DAILY 09/13/16 09/13/16 History Allergies Allergy/AdvReac Type Severity Reaction Status Date / Time Sulfa (Sulfonamide Allergy RASH Verified 09/13/16 02:50 Antibiotics) celecoxib [From Celebrex] AdvReac Severe difficulty Verified 09/13/16 02:50 voiding morphine AdvReac Severe Confusion Verified 09/13/16 02:50 cefixime [From Suprax] AdvReac Unknown Swelling Verified 09/13/16 02:50 of Lip/Tongue/Throat Amoxicillin AdvReac Unknown/Unable Verified 09/13/16 02:50 to obtain Review of systems: Otherwise unremarkable from a sleep standpoint Exam ([place]) H&P - Constitutional Vitals: Period Temp Pulse Resp BP Sys/Wynn Pulse Ox Last 24 Hr 98 F-98.6 F 75-96 15-25 123-158/76-96 90-95 Exam: He is alert and responsive in no acute distress. Pupils equal round reactive to light and accommodation. Extraocular movements intact. Oropharynx with class IV Mallampati exam. Neck is supple without adenopathy or thyromegaly. No supraclavicular adenopathy is noted. Chest with symmetrical breath sounds without focal wheezes, rhonchi, or rales. Cardiac exam reveals a regular rhythm without murmur or gallop. Abdomen soft nontender without palpable hepatosplenomegaly or mass. Extremities are without clubbing cyanosis or edema. Neurologically, he is grossly intact. He moves all extremities with good strength. Medical,Surgical,& Family Hx - Medical History Cardio: History of: Cerebrovascular Disease, Hypertension No history of: Aneurysm, Cardiac Dysrhythmia, Congenital Heart Disease, CHF, CAD, [place], Pacemaker, PVD, Valvular Heart Disease, Cardiovascular Problems Psychological: No history of: Psychiatric Problems Neurology: History of: Cerebrovascular Accident (1980), Peripheral Neuropathy No history of: Brain Aneurysm, Cerebral Hemorrhage, Cerebral Palsy, Dementia , Migraine, Multiple Sclerosis, Parkinson's Disease, Seizures, TIA, Vertigo, Neurologocal Cancer, Neurological Problems HEENT: History of: Ear Problem ([place]), Eye Problem (reading glasses) Endocrine: History of: Dyslipidemia, Thyroid Disorder Rheumatology: History of;: Rheumatoid Arthritis No history of;: Fibromyalgia, Gout, Myasthenia Gravis, Rheumatological Problems Respiratory: No history of: Respiratory Problems Renal: History of: Renal Problems (long history of ureteral lithiasis) Genitourinary: History of: Kidney Stones (lithotripsy done saturday) Gastrointestinal: History of: Diverticulitis/ Diverticulosis, GERD, Hemorrhoids , GI Problems No history of: Hepatitis, Liver Problems, Polyps Musculoskeletal: History of: Back/Neck Problems, Degenerative Disk Disease No history of: Herniated Disk, Osteoporosis, Musculoskeletal Cancer, Musculoskeletal Problems Hematology: History of: Clotting Problems (hematoma surgery to left leg 1979) No history of: Blood Transfusion Reaction Other: History of: MRSA (left leg and right arm) No history of: Anesthesia Reactions, Cancer - Surgical History Cardiac Surgeries: Sugical HX of: Cardiac Catheterization, Cardiac Surgery ( 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), Carotid Endarterectomy (right) Patient Denies: Femoral-Popliteal Bypass Graft, Internal Defibrillator, Vascular Access Devices Thoracic Surgeries: Surgical HX of;: Kidney (Renal Surgery) (BILATERAL), Lithotripsy Neurologic Surgeries: Patient denies: Brain Aneurysm, Cerebral Hemorrhage, Neurologic Surgery HEENT Surgeries: Surgical HX of: Carotid Endarterectomy (right), Eye Surgery ( cataract left eye) Patient denies: Tonsilectomy & Adenoidectomy Abdominal Surgeries: Surgical HX of: Abdominal Surgery (COLECTOMY DR LUCINA CASEY 10/2015.), Appendectomy, Cholecystectomy, Colonoscopy (11/02/2015), EGD, Hernia Repair (dr mcintyre 8-9 years ago) Patient denies: Splenectomy Orthopedic Surgeries: Surgical HX of;: Orthopedic Surgery (right shoulder replacement, left ankle fusion x2, LT ARM SURGERY, LT LEG SX), Total Hip Replacement, Total Knee Replacement (bilateral) - Family History Family History: Reports;: Family Cancer (father), Family Diabetes (mother), Family Heart Disease (mother brother) Denies;: Family Anesthesia Reaction, Family Hypertension, Family Psychiatric Problems, Family Stroke - Social History Smoking Status: Never smoker Frequency of Alcohol Use: None Type of Drug Use: None Results - Labs CBC & BMP: 09/13/16 03:35 09/14/16 04:49 Lab Results: I have reviewed the past 24 hour labs Labs: He does have evidence of chronic respiratory failure with PCO2 elevation. TSH was not done a laboratory evaluation.
[2016-09-14] MEDS ORDERED: METOCLOPRAMIDE 10 MG/2 ML VIAL ONE (14:38)
[2016-09-14] MEDS ORDERED: PROPOFOL 200 MG/20 ML VIAL IV ONE (14:51)
[2016-09-14] MEDS ORDERED: PHENYLEPHRINE 1 MG/10 ML SYRINGE IV ONE (14:51)
[2016-09-14] MEDS ORDERED: ONDANSETRON 4 MG/2 ML VIAL ONE (14:51)
--- NOTE | 2016-09-14 16:17 | Operative Note ---
Date of procedure: 09/14/16 Pre-op diagnosis: right ureteral stone Post-op diagnosis: same Procedure: Under inadequate preop medication the patient was taken to the cystoscopy room and spinal anesthesia was administered and the patient was turned into the lithotomy position prepped and draped in the usual manner. A timeout procedure was done. The cystourethroscope was introduced under direct vision and there was a narrowing in the posterior urethra that required dilatation with the Jaffe followers. The scope was then passed into the bladder and the bladder was inspected the stone fragments were lodged in the right orifice. I was not able to get a guidewire past the fragments so the visual urethrotome was introduced and a meatotomy was made at the 12 o'clock position and the stone fragments were manipulated out of the orifice. A floppy tip guidewire was then passed up to the right renal pelvis under fluoroscopic control without difficulty and a 6 Armenian by 26 cm double-J stent was passed over the guidewire. The pursestring was left on. There was slight bleeding from the meatotomy site so the Bugbee electrode was introduced in that area was lightly fulgurated. There was no bleeding at the end of the procedure. The scope was removed and an 18 Mcdowell was inserted left on gravity drainage and the pull string was taped to the penis. Estimated blood loss was minimal the patient tolerated procedure well and returned to the recovery room in good condition. Anesthesia: spinal Surgeon / Physician: Marcial Davies Estimated blood loss: minimal (right ureteral stone) Specimens: none sent Condition: stable Disposition: ICU Results - Labs CBC & BMP: 09/13/16 03:35 09/14/16 04:49 Discharge Plan - Discharge Medications No Action Metoprolol Succinate Xl [Toprol Xl] 100 mg PO DAILY Atorvastatin [Lipitor] 20 mg PO BEDTIME Omeprazole [Prilosec] 20 mg PO DAILY amLODIPine [Norvasc] 10 mg PO DAILY Levothyroxine Tab [Synthroid Tab] 100 mcg PO DAILY@0700 Aspirin Tab 325 mg PO DAILY Potassium Chloride 10 meq PO BID rOPINIRole [Requip] 0.5 mg PO BEDTIME metOLazone [Metolazone] 2.5 mg PO DAILY Furosemide Tab [Lasix Tab] 40 mg PO DAILY Tamsulosin [Flomax] 0.4 mg PO DAILY - Follow Up or Referral - Forms/Instructions
[2016-09-14] MEDS ORDERED: PROMETHAZINE 25 MG/1 ML VIAL IM PRN (16:19)
[2016-09-14] MEDS ORDERED: MIDAZOLAM 2 MG/2 ML VIAL ONE (16:28)
--- NOTE | 2016-09-14 16:47 | Fluoroscopy Report ---
Exam: FL retrograde pyelogram Date: 09/14/2016 12:00 AM Comparison: 01/29/2008, CT 09/14/2016 Indication: Cystoscopy, right stent Technique: Fluoroscopy time of 18 seconds documented. AP C-arm films were submitted for review. Findings: On the speck dyer film, there is evidence of prior cholecystectomy and left total hip placement. No contrast was injected into the right ureter. There is retained contrast in the dilated right ureter from prior CT. Left lower pole renal calculus noted. Advancement of guidewire with satisfactory insertion of right ureteral stent. Impression: Satisfactory insertion of right ureteral stent. PROCEDURE INTERPRETED AT [facility] DEPARTMENT OF RADIOLOGY Final Report Signed by: Dr. Sujey Carter
[2016-09-14] MEDS ORDERED: ONDANSETRON 4 MG/2 ML VIAL IV PRN (16:56)
--- NOTE | 2016-09-14 17:06 | Anesthesia ---
Anesthesia Post OP - Post Ansesthetic Evaluation Patient seen in post op: Yes Resp: within normal limits (92-94% on 4L NC as pre-op) CV: within normal limits Mental: within normal limits Temp: within normal limits [id number]: within normal limits Nausea and Vomiting: within normal limits Pain: within normal limits
[2016-09-14] MEDS ORDERED: LEVOFLOXACIN INJ 500 MG in PREMIX 1 EACH IV ONE (19:15)
[2016-09-14] MEDS: rOPINIRole 0.25 MG TABLET PO SCH (20:50)
[2016-09-15] MEDS: HYDROmorphone 2 MG/1 ML VIAL IV PRN ×5 (00:30→18:51)
[2016-09-15] MEDS: ALBUTEROL/IPRATROPIUM 3 ML NEB RESP TX SCH ×4 (00:58→20:24)
[2016-09-15] MEDS: LEVOTHYROXINE 100 MCG TABLET PO SCH (06:04)
--- NOTE | 2016-09-15 06:46 | Pulmonology Progress Note ---
Pulmonary - PN: Subj Interval history: Patient is a 61-year-old white man that is a little overweight and likely has sleep apnea with obesity hypoventilation syndrome. He came in with shortness of breath felt to be a little overloaded. He says he is breathing much better now. He had a right kidney stone and had to have a ureteral stent placed. He says he sore on the right flank but otherwise is doing okay. He is not having any chest pain and he says his shortness of breath is better. His ABGs were better yesterday. He still has some mild hematuria but otherwise is doing okay. Exam (Progress Note) - Constitutional Vitals: Period Temp Pulse Resp BP Sys/Wynn Pulse Ox Last 24 Hr 97.8 F-98.8 F 75-105 14-28 92-156/59-96 86-98 General appearance: no acute distress, over weight - Head Head exam: Present: normal inspection, normocephalic - Eye Eye exam: Present: EOMI. Absent: scleral icterus Pupils: Present: HANNAH - ENT ENT exam: Present: other (class IV Mallampati exam) - Neck Neck exam: Present: normal inspection. Absent: lymphadenopathy, thyromegaly - Respiratory Respiratory exam: Present: clear to auscultation bilaterally. Absent: rales, wheezes - Cardiovascular Cardiovascular exam: Present: regular rate and rhythm. Absent: gallop, systolic murmur - GI/Abdominal GI/Abdominal exam: Present: normal bowel sounds, soft, other (he does have some mild right flank soreness.). Absent: organomegaly, tenderness - Extremities Exam Extremities exam: Absent: calf tenderness, edema - Neurological Exam Neurological exam: Present: alert, oriented X3, CN II-XII intact - Psychiatric Psychiatric exam: Present: normal affect - Skin Skin exam: Present: warm, dry Results - Labs CBC & BMP: 09/13/16 03:35 09/14/16 04:49 Assessment and Plan (1) Acute and chronic respiratory failure Status: Acute Assessment and plan: The patient did have CO2 retention and mild hypoxemia but is doing better now. He is not having any respiratory distress at present. Current Visit: Yes (2) Congestive heart failure Status: Acute Assessment and plan: His repeat chest x-ray does not look like heart failure now. He does have good urine output. His weight is down. Current Visit: Yes (3) Unspecified sleep apnea Status: Acute Assessment and plan: He is being evaluated for sleep apnea. He could not use his BiPAP last night. Current Visit: Yes (4) Hypertensive cardiovascular disease Status: Chronic Assessment and plan: His blood pressure and heart rate have been stable. Current Visit: No (5) Renal calculus, right Status: Chronic Assessment and plan: He had a stent placed in his right ureter and is a little sore. He still has some mild hematuria. Current Visit: No
--- NOTE | 2016-09-15 07:56 | Cardiology Progress Note ---
Cardiology - PN: Subj Interval history: Cardiology note Day 1 status post cystoscopy and extraction of stone Awake and alert. Telemetry shows sinus rhythm in the 80s and 90s Blood pressure 126/66 O2 sat 100 on 2 L cannula Decreased breath sounds but clear Regular rhythm no gallop Abdomen soft benign. Urine is tea colored Lab data today Sodium 141 potassium 3.8 chloride 98 CO2 31 BUN 23 creatinine 1.10 Impression Status post cystoscopy and extraction of stone for hydronephrosis Long history nephrolithiasis Hypertension Ejection fraction 60% with aortic sclerosis by recent echo Plan Transfer to floor okay with me Lipid panel Continue hydration Exam (Progress Note) - Constitutional Vitals: Period Temp Pulse Resp BP Sys/Wynn Pulse Ox Last 24 Hr 97.8 F-98.8 F 75-105 14-28 92-156/59-96 86-98 Result/EKG - Labs CBC & BMP: 09/13/16 03:35 09/14/16 04:49
--- NOTE | 2016-09-15 08:36 | Urology Progress Note ---
Urology - PN: Subj Interval history: The patient has mild hematuria post-stent placement. i will remove his Mcdowell today and check a KUB. Flank pain is improved. He has some discomfort from the stent Exam - Constitutional Vitals: Period Temp Pulse Resp BP Sys/Wynn Pulse Ox Last 24 Hr 97.8 F-98.8 F 75-105 14-28 92-156/55-96 86-98 Results - Labs CBC & BMP: 09/13/16 03:35 09/14/16 04:49
[2016-09-15] MEDS: FUROSEMIDE 40 MG/4 ML VIAL IV SCH ×2 (08:38→17:16)
[2016-09-15] MEDS: TAMSULOSIN 0.4 MG CAPSULE PO SCH (08:39)
[2016-09-15] MEDS: PANTOPRAZOLE 40 MG TABLET PO SCH (08:39)
[2016-09-15] MEDS: SPIRONOLACTONE 25 MG TABLET PO SCH ×2 (08:39→21:19)
--- NOTE | 2016-09-15 09:52 | XRay Report ---
Exam: XR KUB Date: 09/15/2016 8:37 AM Comparison: 08/21/2016, 09/14/2016 Indication: Stent placement Technique: Supine abdomen Findings: Mild gaseous distention of bowel with prior cholecystectomy and left total hip replacement. Prior right pelvic hernia repair. Right ureteral stent remains in satisfactory position with bilateral renal calculi. Degenerative changes are noted with chronic L2 compression fracture.. Impression: Right ureteral stent in satisfactory position with stable postoperative findings. Mild ileus with bilateral nephrocalcinosis. PROCEDURE INTERPRETED AT [facility] DEPARTMENT OF RADIOLOGY Final Report Signed by: Dr. Sujey Carter
--- NOTE | 2016-09-15 10:02 | Internal Med Progress Note ---
Assessment and Plan (1) COPD exacerbation Status: Resolved Current Visit: Yes (2) Congestive heart failure Status: Resolved Current Visit: Yes (3) Hydronephrosis Status: Acute Current Visit: Yes Qualifiers: Hydronephrosis type: with ureteral calculous obstruction Qualified Code(s) : N13.2 - Hydronephrosis with renal and ureteral calculous obstruction (4) Unspecified sleep apnea Status: Chronic Current Visit: Yes Qualifiers: Sleep apnea type: obstructive Qualified Code(s): G47.33 - Obstructive sleep apnea (adult) (pediatric) (5) Dyslipidemia Status: Chronic Current Visit: No Internal Medicine - PN: Subj Interval history: This is a 61 year old male patient of Dr. Liss Jaffe with history of COPD with recurrent exacerbation and pneumonia, kidney stones, HTN, CHF, high suspicion of obstructive sleep apnea and is scheduled soon for sleep study, who is here for COPD exacerbation and CHF. He recently has had kidney stones and lithotripsy. He had to have a drain placed for hydronephrosis per Dr. Davies. He is doing better overall. Will move him to [facility] on [address]. Exam (Progress Note) - Constitutional Vitals: Period Temp Pulse Resp BP Sys/Wynn Pulse Ox Last 24 Hr 97.8 F-98.8 F 75-105 14-28 92-156/55-96 86-98 General appearance: no acute distress - Head Head exam: Present: normocephalic - Eye Eye exam: Present: EOMI - Respiratory Respiratory exam: Present: clear to auscultation bilaterally - Cardiovascular Cardiovascular exam: Present: regular rate and rhythm - GI/Abdominal GI/Abdominal exam: Present: tenderness (drain site right kidney), soft - Extremities Exam Extremities exam: Absent: edema - Neurological Exam Neurological exam: Present: alert, oriented X3 - Psychiatric Psychiatric exam: Present: normal mood - Skin Skin exam: Present: warm, dry Results - Labs CBC & BMP: 09/13/16 03:35 09/14/16 04:49 - EKG EKG shows: sinus rhythm - Diagnostic Findings Procedure: Chest x-ray: report reviewed by me, KUB x-ray: report reviewed by me
[2016-09-15] MEDS: METOPROLOL SUCCINATE XL 100 MG TABLET PO SCH (14:12)
[2016-09-15] MEDS: ATORVASTATIN 20 MG TABLET PO SCH (21:19)
[2016-09-15] MEDS: rOPINIRole 0.25 MG TABLET PO SCH (21:19)
[2016-09-16] MEDS: ALBUTEROL/IPRATROPIUM 3 ML NEB RESP TX SCH ×4 (00:29→20:55)
[2016-09-16] MEDS: HYDROmorphone 2 MG/1 ML VIAL IV PRN ×5 (00:50→23:39)
[2016-09-16] MEDS: LEVOTHYROXINE 100 MCG TABLET PO SCH (07:05)
[2016-09-16 07:16] LABS: Risk Ratio 3.04; VLDL CHOLESTEROL 30.6 MG/DL
[2016-09-16 07:28] LABS: Osmolality,Calculated 279.7 MOS/KG (273-304)
--- NOTE | 2016-09-16 09:14 | Pulmonology Progress Note ---
Pulmonary - PN: Subj Interval history: Patient is a 61-year-old white man that is a little overweight and likely has sleep apnea with obesity hypoventilation syndrome. He came in with shortness of breath felt to be a little overloaded. He had a stent placed in his ureter for a kidney stone. His catheter is out today but he still has some hematuria. He says his flank pain is getting a little better. He feels like he is breathing comfortably today and is not short of breath. He is sitting up and eating breakfast and looks much better. Overall he says he feels better. Exam (Progress Note) - Constitutional Vitals: Period Temp Pulse Resp BP Sys/Wynn Pulse Ox Last 24 Hr 97.2 F-98.5 F 62-106 17-25 104-132/69-82 90-99 Exam: General appearance: no acute distress, over weight, he is up in a chair and looks much better. - Head Head exam: Present: normal inspection, normocephalic - Eye Eye exam: Present: EOMI. Absent: scleral icterus Pupils: Present: HANNAH - ENT ENT exam: Present: other (class IV Mallampati exam) - Neck Neck exam: Present: normal inspection. Absent: lymphadenopathy, thyromegaly - Respiratory Respiratory exam: Present: clear to auscultation bilaterally. He is moving air well without any wheezing or rales. - Cardiovascular Cardiovascular exam: Present: regular rate and rhythm. Absent: gallop, systolic murmur - GI/Abdominal GI/Abdominal exam: Present: normal bowel sounds, soft, obese, other (he does have some mild right flank soreness.). Absent: organomegaly, tenderness - Extremities Exam Extremities exam: Absent: calf tenderness, edema - Neurological Exam Neurological exam: Present: alert, oriented X3, CN II-XII intact - Psychiatric Psychiatric exam: Present: normal affect - Skin Skin exam: Present: warm, dry Results - Labs CBC & BMP: 09/13/16 03:35 09/16/16 05:47 Assessment and Plan (1) Acute and chronic respiratory failure Status: Acute Assessment and plan: The patient did have CO2 retention and mild hypoxemia but is doing better now. He is not having any respiratory distress at present. He seems to be breathing much better now. Current Visit: Yes (2) Congestive heart failure Status: Resolved Assessment and plan: His repeat chest x-ray does not look like heart failure now. He does have good urine output. His weight is down. He is not having any shortness of breath now. Current Visit: Yes (3) Unspecified sleep apnea Status: Chronic Assessment and plan: He is being evaluated for sleep apnea. He has not been using BiPAP lately. Current Visit: Yes Qualifiers: Sleep apnea type: obstructive Qualified Code(s): G47.33 - Obstructive sleep apnea (adult) (pediatric) (4) Hypertensive cardiovascular disease Status: Chronic Assessment and plan: His blood pressure and heart rate have been stable. Current Visit: No (5) Renal calculus, right Status: Chronic Assessment and plan: He had a stent placed in his right ureter and is a little sore. He still has some mild hematuria. He says his voiding okay now. Current Visit: No
--- NOTE | 2016-09-16 09:54 | Urology Progress Note ---
Urology - PN: Subj Interval history: The patient still has some flank pain and hematuria post stent placement. On KUB looks like the stone in the right kidney broke up fairly well I'll probably pull the stent in about a week. Exam - Constitutional Vitals: Period Temp Pulse Resp BP Sys/Wynn Pulse Ox Last 24 Hr 97.2 F-98.5 F 62-106 17-25 104-132/69-82 90-99 Results - Labs CBC & BMP: 09/13/16 03:35 09/16/16 05:47
[2016-09-16] MEDS: SPIRONOLACTONE 25 MG TABLET PO SCH ×2 (10:03→21:36)
[2016-09-16] MEDS: FUROSEMIDE 40 MG/4 ML VIAL IV SCH ×2 (10:03→19:26)
[2016-09-16] MEDS: TAMSULOSIN 0.4 MG CAPSULE PO SCH (10:03)
[2016-09-16] MEDS: PANTOPRAZOLE 40 MG TABLET PO SCH (10:03)
[2016-09-16] MEDS: METOPROLOL SUCCINATE XL 100 MG TABLET PO SCH (10:03)
--- NOTE | 2016-09-16 15:05 | Internal Med Progress Note ---
Assessment and Plan (1) COPD exacerbation Status: Resolved Current Visit: Yes (2) Congestive heart failure Status: Resolved Current Visit: Yes (3) Hydronephrosis Status: Acute Current Visit: Yes Qualifiers: Hydronephrosis type: with ureteral calculous obstruction Qualified Code(s) : N13.2 - Hydronephrosis with renal and ureteral calculous obstruction (4) Unspecified sleep apnea Status: Chronic Current Visit: Yes Qualifiers: Sleep apnea type: obstructive Qualified Code(s): G47.33 - Obstructive sleep apnea (adult) (pediatric) (5) Dyslipidemia Status: Chronic Current Visit: No Internal Medicine - PN: Subj Interval history: This is a 61 year old male patient of Dr. Liss Jaffe with history of COPD with recurrent exacerbation and pneumonia, kidney stones, HTN, CHF, high suspicion of obstructive sleep apnea and is scheduled soon for sleep study, who is here for COPD exacerbation and CHF. He recently has had kidney stones and lithotripsy. He had to have a drain placed for hydronephrosis per Dr. Davies. Feeling much better today, Saturday. He is hopeful that renal stent will be removed tomorrow. Exam (Progress Note) - Constitutional Vitals: Period Temp Pulse Resp BP Sys/Wynn Pulse Ox Last 24 Hr 97.2 F-98.3 F 69-96 12-25 113-137/68-74 91-98 Exam: General appearance: no acute distress - Respiratory Respiratory exam: Present: clear to auscultation bilaterally - Cardiovascular Cardiovascular exam: Present: regular rate and rhythm - GI/Abdominal GI/Abdominal exam: Present: tenderness (drain site right kidney), soft - Extremities Exam Extremities exam: Absent: edema - Neurological Exam Neurological exam: Present: alert, oriented X3 - Psychiatric Psychiatric exam: Present: normal mood - Skin Skin exam: Present: warm, dry Results - Labs CBC & BMP: 09/13/16 03:35 09/16/16 05:47
--- NOTE | 2016-09-16 17:58 | Cardiology Progress Note ---
Cardiology - PN: Subj Interval history: Cardiology note Date 2 status post cystoscopy and stone extraction No temperature. Mcdowell out. Still has some hematuria Appetite good. Blood pressure 134/80 Clear chest. Regular rhythm. No gallop. Impression Status post cystoscopy and stone extraction for hydronephrosis Long history kidney stones Hypertension EF 60% by recent echo with aortic sclerosis Plan Oxycodone as needed Encourage hydration Home soon. Will sign off. Call if needed. Exam (Progress Note) - Constitutional Vitals: Period Temp Pulse Resp BP Sys/Wynn Pulse Ox Last 24 Hr 97.8 F-98.3 F 69-96 12-25 113-137/68-74 91-98 Result/EKG - Labs CBC & BMP: 09/13/16 03:35 09/16/16 05:47 Labs: Laboratory Results - last 24 hr 09/16/16 09/16/16 09/16/16 05:47 05:47 05:47 Sodium 138 Potassium 4.0 Chloride 94 L Carbon Dioxide 40 H Anion Gap 8.0 BUN 26 H Creatinine 0.90 GFR Calculation 116 BUN/Creatinine Ratio 28.00 H Glucose 104 Calculated Osmolality 279.7 Calcium 9.0 B-Natriuretic Peptide 24 Triglycerides 153 H Cholesterol 158 LDL Cholesterol 83.0 VLDL Cholesterol 30.6 HDL Cholesterol 52 Heart Disease Risk Ratio 3.04
[2016-09-16] MEDS: rOPINIRole 0.25 MG TABLET PO SCH (21:36)
[2016-09-16] MEDS: ATORVASTATIN 20 MG TABLET PO SCH (21:37)
[2016-09-17] MEDS: ALBUTEROL/IPRATROPIUM 3 ML NEB RESP TX SCH ×4 (01:54→19:12)
[2016-09-17] MEDS: HYDROmorphone 2 MG/1 ML VIAL IV PRN ×5 (03:33→23:27)
--- NOTE | 2016-09-17 07:36 | Urology Progress Note ---
Urology - PN: Subj Interval history: The patient is still passing fragments. I plan to remove the stent in 1 week Exam - Constitutional Vitals: Period Temp Pulse Resp BP Sys/Wynn Pulse Ox Last 24 Hr 97.8 F-98.6 F 78-96 12-20 107-137/63-74 91-98 Results - Labs CBC & BMP: 09/13/16 03:35 09/16/16 05:47
--- NOTE | 2016-09-17 08:36 | Family Practice Progress Note ---
Family Practice - PN: Subj Interval history: Patient states she is actually feeling much better and he certainly breathing better. He still having terrible right flank pain and hematuria. He does have a ureteral stent in place. Dr. Davies plans on keeping it in for the next week. I was relieved to see that his urine culture was negative as are his blood cultures. Exam (Progress Note) - Constitutional Vitals: Period Temp Pulse Resp BP Sys/Wynn Pulse Ox Last 24 Hr 97.9 F-98.6 F 78-96 18-20 107-137/63-69 93-98 Exam: Objective a well-developed white male no acute distress. He is sitting up in a chair beside the bed and is not dyspneic. He is not wearing any oxygen. He has returned to his garrulous self. Cardiovascular: Heart rates regular with no murmurs or gallops. Respiratory: Lungs are clear to auscultation this morning. Abdomen: Abdomen soft, somewhat distended and nontender. Extremities: There is no calf swelling or tenderness. Results - Labs CBC & BMP: 09/13/16 03:35 09/16/16 05:47 Lab Results: I have reviewed the past 24 hour labs Assessment and Plan (1) Hydronephrosis Status: Acute Assessment and plan: 09/14/2016: Renal colic CT to be ordered and ask urology to see him as well. 09/17/2016: Ureteral stent is in place. Patient still having quite a bit of renal colic Current Visit: Yes Qualifiers: Hydronephrosis type: with ureteral calculous obstruction Qualified Code(s) : N13.2 - Hydronephrosis with renal and ureteral calculous obstruction (2) Congestive heart failure Status: Resolved Assessment and plan: 09/14/2016: Patient has had over 4 L of urine output. His dyspnea is certainly improved. Current Visit: Yes (3) Acute and chronic respiratory failure Status: Acute Assessment and plan: 09/14/2016: ABGs were improved with diuresis. 09/17/2016: Patient is certainly improved. Patient certainly has sleep apnea and hypoventilation of obesity. Current Visit: Yes
--- NOTE | 2016-09-17 09:05 | Pulmonology Progress Note ---
Pulmonary - PN: Subj Interval history: This 61-year-old white male was admitted 2 days ago with increasing shortness of breath. He had an elevated BNP. His CT scan shows some interstitial edema and small pleural effusions. An echocardiogram is pending. We have given him Lasix and is better. ABGs are improved. He has an elevated PCO2. He may have obesity hypoventilation syndrome with superimposed congestive heart failure. We checked for pulmonary emboli since she had a hip replacement a couple months ago. No signs of emboli on CT scan. Venous Dopplers were negative also. At this point we can change him to nasal oxygen just shoot for an O2 sat of 88-92% . We'll stop his steroids. He does not have COPD. Need echo report. His chest CT indicates right hydronephrosis. We need to have neurology to see him. To 617 patient is feeling better. He does not like the BiPAP since it's to rule out any doesn't tolerate the mask well. Sleep lab is due to see him. I will try him on nasal pillars. He will need to get a BiPAP machine to use at home. He has chronically elevated PCO2 and has pulmonary hypertension. I think he clearly has obesity hypoventilation syndrome and probably sleep apnea as well. Exam (Progress Note) - Constitutional Vitals: Period Temp Pulse Resp BP Sys/Wynn Pulse Ox Last 24 Hr 97.9 F-98.6 F 78-96 18-20 107-137/63-69 93-98 Exam: Patient is alert oriented cooperative. Vital signs normal. O2 sat 93% on 2L nasal. Pupils react to light. Throat is clear. Neck supple no bruits. Chest reveals some minimal basilar crackles. No wheezes. Heart normal rate rhythm no murmurs. Abdomen obese unable to palpate abdominal organs. Bowel sounds present. Extremities no clubbing or cyanosis. He does have peripheral edema. Calves nontender. Results - Labs CBC & BMP: 09/13/16 03:35 09/16/16 05:47 Lab Results: I have reviewed the past 24 hour labs Assessment and Plan (1) Congestive heart failure Status: Resolved Assessment and plan: Patient has elevated BNP and edema. Basilar crackles. I suspect he is ahead on fluids and may have congestive heart failure. We need an echo cardiogram. Agree with empiric diuresis. 09/14/16 findings are consistent with congestive heart failure. We still need an at coat to help categorize. He feels better after diuresis. I will stop his steroids. Discussed case with Dr. Jesus Jaffe 09/17/16 he has diastolic congestive heart failure. Pulmonary hypertension is noted on echo. He is not markedly overweight but apparently has obesity hypoventilation syndrome and sleep apnea. Sleep lab is to see him and try to help us arrange BiPAP at home for him. He will need a sleep study at some point. He does not like the CPAP mask. He says the machine is too loud. Current Visit: Yes (2) Acute and chronic respiratory failure Status: Acute Assessment and plan: ABG show hypoxemia with an elevated PCO2. Patient has never been a smoker. He may have obesity hypoventilation syndrome. It does not appear that he has overdosed on pain medications. Pulmonary embolism is a consideration as well having had a hip replacement 2 months ago. Will evaluate with a CT PE protocol , echocardiogram, and venous Dopplers. Chronic interstitial lung disease is a possibility as well. Agree with empiric treatment with antibiotics. 09/14/16 PCO2 is down to 55. I think he has an element of obesity hypoventilation syndrome. Congestive heart failure in this range normally doesn 't cause an elevated PCO2. We will need to evaluate with sleep study when he is improved. 09/17/16 this is better with diuresis and treatment with BiPAP at night. Current Visit: Yes (3) Renal calculus, right Status: Chronic Assessment and plan: Had recent lithotripsy and still having some flank pain. 09/14/[address] indicates some right hydronephrosis. Needs further evaluation and urology consult. Again discussed case with Dr. Jesus Jaffe who is going to address this. 09/17/16 he now has a right ureteral stent and the stone is coming out in fragments. Hopefully this will continue to clear and he can get the stent out in a few days. Dr. Davies is following. Current Visit: No (4) Hypertensive cardiovascular disease Status: Chronic Assessment and plan: Blood pressure is a little on the high side. Need to try to get systolic to 140 or less. 09/14/16 blood pressure fairly well controlled. 09/17/16 blood pressure is well controlled. Current Visit: No
[2016-09-17] MEDS: FUROSEMIDE 40 MG/4 ML VIAL IV SCH ×2 (09:07→16:48)
[2016-09-17] MEDS: LEVOTHYROXINE 100 MCG TABLET PO SCH (09:11)
[2016-09-17] MEDS: SPIRONOLACTONE 25 MG TABLET PO SCH ×2 (09:11→21:10)
[2016-09-17] MEDS: TAMSULOSIN 0.4 MG CAPSULE PO SCH (09:11)
[2016-09-17] MEDS: METOPROLOL SUCCINATE XL 100 MG TABLET PO SCH (09:12)
[2016-09-17] MEDS: PANTOPRAZOLE 40 MG TABLET PO SCH (09:12)
[2016-09-17 14:42] LABS: Mycoplasma pneumoniae Ab, IgG 2.55 index (<=0.90); Mycoplasma pneumoniae Ab, IgM 0.15 index (<=0.90)
[2016-09-17] MEDS: ATORVASTATIN 20 MG TABLET PO SCH (21:10)
[2016-09-17] MEDS: rOPINIRole 0.25 MG TABLET PO SCH (21:10)
[2016-09-18] MEDS: ALBUTEROL/IPRATROPIUM 3 ML NEB RESP TX SCH ×4 (00:44→19:21)
[2016-09-18] MEDS: HYDROmorphone 2 MG/1 ML VIAL IV PRN ×4 (06:26→23:26)
[2016-09-18] MEDS: LEVOTHYROXINE 100 MCG TABLET PO SCH (06:26)
--- NOTE | 2016-09-18 07:35 | Urology Progress Note ---
Urology - PN: Subj Interval history: The patient's pain level and hematuria are stable. Plan to remove the ureteral stent in 1 week Exam - Constitutional Vitals: Period Temp Pulse Resp BP Sys/Wynn Pulse Ox Last 24 Hr 97.4 F-98.4 F 66-86 16-20 107-142/66-84 90-100 Results - Labs CBC & BMP: 09/13/16 03:35 09/16/16 05:47 Specialty Discharge - Follow Up or Referrals Follow up with: Marcial Davies MD [Physician] - 09/24/16 8:30 am
--- NOTE | 2016-09-18 07:41 | Family Practice Progress Note ---
Family Practice - PN: Subj Interval history: Patient states he is doing well in all ways except for his right flank pain and groin pain. He still having gross hematuria. Patient states the pain is unbearable and parenteral analgesics are not controlling it. States she is breathing fine and does not have any shortness of breath. Repeat chest x-ray this morning shows definite improvement from admission film. He has a BiPAP set up at the bedside but he states he is not using it things are going to try nasal pillars. Exam (Progress Note) - Constitutional Vitals: Period Temp Pulse Resp BP Sys/Wynn Pulse Ox Last 24 Hr 97.4 F-98.4 F 66-86 16-20 107-142/66-84 90-100 Exam: Objective a well-developed white male no acute distress. He is sitting up in a chair beside the bed and is not dyspneic. He states his pain is unbearable. Cardiovascular: Heart rates regular with no murmurs or gallops. Respiratory: Lungs are clear to auscultation this morning. Abdomen: Abdomen soft, somewhat distended and nontender. Extremities: There is no calf swelling or tenderness. Results - Labs CBC & BMP: 09/13/16 03:35 09/16/16 05:47 Assessment and Plan (1) Hydronephrosis Status: Acute Assessment and plan: 09/14/2016: Renal colic CT to be ordered and ask urology to see him as well. 09/17/2016: Ureteral stent is in place. Patient still having quite a bit of renal colic 09/18/2016: Patient is having quite a bit of pain in the right flank. Hematuria persists Current Visit: Yes Qualifiers: Hydronephrosis type: with ureteral calculous obstruction Qualified Code(s) : N13.2 - Hydronephrosis with renal and ureteral calculous obstruction (2) Congestive heart failure Status: Resolved Assessment and plan: 09/14/2016: Patient has had over 4 L of urine output. His dyspnea is certainly improved. 09/18/2016: chest x-ray shows improvement Current Visit: Yes (3) Acute and chronic respiratory failure Status: Acute Assessment and plan: 09/14/2016: ABGs were improved with diuresis. 09/17/2016: Patient is certainly improved. Patient certainly has sleep apnea and hypoventilation of obesity. 09/18/2016: Patient does not tolerate mask for his BiPAP. Nasal pillars are being sought. Current Visit: Yes Specialty Discharge - Follow Up or Referrals Follow up with: Marcial Davies MD [Physician] - 09/24/16 8:30 am
--- NOTE | 2016-09-18 08:14 | XRay Report ---
XR chest 1V portable Indication: Bronchitis Comparison: Chest x-ray dated September 14, 2016 Technique: Single frontal view of the chest Findings: Cardiomediastinal silhouette appears grossly unchanged. No new focal consolidation, pleural effusion, or pneumothorax. Mild linear atelectasis within right midlung. Osseous and surrounding soft tissue structures appear grossly unchanged. IMPRESSION: No adverse interval change. PROCEDURE INTERPRETED AT [facility] DEPARTMENT OF RADIOLOGY Final Report Signed by: Dr Delon Thomas
--- NOTE | 2016-09-18 08:41 | Pulmonology Progress Note ---
Pulmonary - PN: Subj Interval history: This 61-year-old white male was admitted 2 days ago with increasing shortness of breath. He had an elevated BNP. His CT scan shows some interstitial edema and small pleural effusions. An echocardiogram is pending. We have given him Lasix and is better. ABGs are improved. He has an elevated PCO2. He may have obesity hypoventilation syndrome with superimposed congestive heart failure. We checked for pulmonary emboli since she had a hip replacement a couple months ago. No signs of emboli on CT scan. Venous Dopplers were negative also. At this point we can change him to nasal oxygen just shoot for an O2 sat of 88-92% . We'll stop his steroids. He does not have COPD. Need echo report. His chest CT indicates right hydronephrosis. We need to have neurology to see him. 09/17/16 patient is feeling better. He does not like the BiPAP since it's to rule out any doesn't tolerate the mask well. Sleep lab is due to see him. I will try him on nasal pillars. He will need to get a BiPAP machine to use at home. He has chronically elevated PCO2 and has pulmonary hypertension. I think he clearly has obesity hypoventilation syndrome and probably sleep apnea as well. 09/18/16 patient is walking in the jimenez without dyspnea. However he has hypercarbia at rest. This fits best with obesity hypoventilation syndrome. We need to get a BiPAP device or trilogy device for him to use at home. We'll ask for sleep medicine to help us with this. He does not like the mask that he has on the hospital unit. I think he do best with nasal pillars. There may be a compliance problem. Exam (Progress Note) - Constitutional Vitals: Period Temp Pulse Resp BP Sys/Wynn Pulse Ox Last 24 Hr 97.4 F-98.2 F 66-86 16-20 107-141/66-84 90-100 Exam: Patient is alert oriented cooperative. Vital signs normal. O2 sat 93% on 2L nasal. Pupils react to light. Throat is clear. Neck supple no bruits. Chest sounds clear now. Heart normal rate rhythm no murmurs. Abdomen obese unable to palpate abdominal organs. Bowel sounds present. Extremities no clubbing or cyanosis. He does have peripheral edema. Calves nontender. Results - Labs CBC & BMP: 09/13/16 03:35 09/16/16 05:47 Lab Results: I have reviewed the past 24 hour labs - Diagnostic Findings Procedure: Chest x-ray: image reviewed by me (mediastinum is slightly widened. Lungs are clear except for one area of platelike atelectasis in the right mid lung. Overall improved.) Assessment and Plan (1) Congestive heart failure Status: Resolved Assessment and plan: Patient has elevated BNP and edema. Basilar crackles. I suspect he is ahead on fluids and may have congestive heart failure. We need an echo cardiogram. Agree with empiric diuresis. 09/14/16 findings are consistent with congestive heart failure. We still need an at coat to help categorize. He feels better after diuresis. I will stop his steroids. Discussed case with Dr. Jesus Jaffe 09/17/16 he has diastolic congestive heart failure. Pulmonary hypertension is noted on echo. He is not markedly overweight but apparently has obesity hypoventilation syndrome and sleep apnea. Sleep lab is to see him and try to help us arrange BiPAP at home for him. He will need a sleep study at some point. He does not like the CPAP mask. He says the machine is too loud. 09/18/16 this is clearly improved. He does have pulmonary hypertension however. This indicates the need for treatment of his obesity hypoventilation syndrome. Current Visit: Yes (2) Acute and chronic respiratory failure Status: Acute Assessment and plan: ABG show hypoxemia with an elevated PCO2. Patient has never been a smoker. He may have obesity hypoventilation syndrome. It does not appear that he has overdosed on pain medications. Pulmonary embolism is a consideration as well having had a hip replacement 2 months ago. Will evaluate with a CT PE protocol , echocardiogram, and venous Dopplers. Chronic interstitial lung disease is a possibility as well. Agree with empiric treatment with antibiotics. 09/14/16 PCO2 is down to 55. I think he has an element of obesity hypoventilation syndrome. Congestive heart failure in this range normally doesn 't cause an elevated PCO2. We will need to evaluate with sleep study when he is improved. 09/17/16 this is better with diuresis and treatment with BiPAP at night. 09/18/16 he is feeling better after diuresis. We are having trouble getting him to use the BiPAP. Current Visit: Yes (3) Renal calculus, right Status: Chronic Assessment and plan: Had recent lithotripsy and still having some flank pain. 09/14/[address] indicates some right hydronephrosis. Needs further evaluation and urology consult. Again discussed case with Dr. Jesus Jaffe who is going to address this. 09/17/16 he now has a right ureteral stent and the stone is coming out in fragments. Hopefully this will continue to clear and he can get the stent out in a few days. Dr. Davies is following. 09/18/[address] Davies. Current Visit: No (4) Hypertensive cardiovascular disease Status: Chronic Assessment and plan: Blood pressure is a little on the high side. Need to try to get systolic to 140 or less. 09/14/16 blood pressure fairly well controlled. 09/17/16 blood pressure is well controlled. 09/18/69 blood pressures look good. 122/84. Current Visit: No Specialty Discharge - Follow Up or Referrals Follow up with: Marcial Davies MD [Physician] - 09/24/16 8:30 am
[2016-09-18] MEDS: FUROSEMIDE 40 MG/4 ML VIAL IV SCH ×2 (09:08→16:26)
[2016-09-18] MEDS: PANTOPRAZOLE 40 MG TABLET PO SCH (09:09)
[2016-09-18] MEDS: METOPROLOL SUCCINATE XL 100 MG TABLET PO SCH (09:09)
[2016-09-18] MEDS: SPIRONOLACTONE 25 MG TABLET PO SCH ×2 (09:09→22:19)
[2016-09-18] MEDS: TAMSULOSIN 0.4 MG CAPSULE PO SCH (09:09)
--- NOTE | 2016-09-18 15:19 | Sleep Medicine Progress Note ---
Assessment and Plan (1) Unspecified sleep apnea Status: Chronic Assessment and plan: We will proceed with HST evaluation tonight with supplemental prescribed oxygen. Follow-up with those results will be dameon. Current Visit: Yes Qualifiers: Sleep apnea type: obstructive Qualified Code(s): G47.33 - Obstructive sleep apnea (adult) (pediatric) (2) Hypertension Status: Chronic Current Visit: No Qualifiers: Hypertension type: essential hypertension (3) Congestive heart failure Status: Resolved Current Visit: Yes Sleep Medicine Subjective Interval history: Should had been seen by me last week and sleep consultation and does have a history concerning for sleep apnea. He'll be scheduled for outpatient sleep study but discharge was canceled due to persistent problems. I spoke with Dr. Castanon today. He continues to have problems with PCO2 elevation. There is concern that he may be having hypoventilation at night. We will go ahead and study him with overnight HST. Exam (Progress Note) - Constitutional Vitals: Period Temp Pulse Resp BP Sys/Wynn Pulse Ox Last 24 Hr 97.4 F-98.2 F 66-85 16-20 107-141/71-84 90-98 Exam: HEENT unremarkable other than for class IV Mallampati exam. Neck supple without adenopathy or thyromegaly. Chest with fair air movement and no focal wheezes or rhonchi. Cardiac exam reveals a regular rhythm without murmur or gallop. Abdomen soft nontender Results - Labs CBC & BMP: 09/13/16 03:35 09/16/16 05:47 Lab Results: I have reviewed the past 24 hour labs Specialty Discharge - Follow Up or Referrals Follow up with: Marcial Davies MD [Physician] - 09/24/16 8:30 am
[2016-09-18] MEDS: ATORVASTATIN 20 MG TABLET PO SCH (22:19)
[2016-09-18] MEDS: rOPINIRole 0.25 MG TABLET PO SCH (22:19)
[2016-09-19] MEDS: ALBUTEROL/IPRATROPIUM 3 ML NEB RESP TX SCH ×3 (00:51→12:35)
[2016-09-19] MEDS: LEVOTHYROXINE 100 MCG TABLET PO SCH (06:01)
--- NOTE | 2016-09-19 07:42 | Urology Progress Note ---
Urology - PN: Subj Interval history: Patient is still passing fragments. His pain is stable. Hematuria may be a little better. Plan to remove the stent next week Exam - Constitutional Vitals: Period Temp Pulse Resp BP Sys/Wynn Pulse Ox Last 24 Hr 97.8 F-98.7 F 52-91 16-20 99-132/55-86 93-99 Results - Labs CBC & BMP: 09/13/16 03:35 09/16/16 05:47 Specialty Discharge - Follow Up or Referrals Follow up with: Marcial Davies MD [Physician] - 09/24/16 8:30 am
--- NOTE | 2016-09-19 08:20 | Family Practice Progress Note ---
Family Practice - PN: Subj Interval history: Patient certainly doing better. He completed his sleep study and is awaiting the results of the study. Patient states his main problems is still having severe right flank pain. Patient states he needs more pain medicine but I pointed out to him with his hypoventilation that may be a little risky to increase his narcotics. I told him I thought we should try a little anti- inflammatory but he has had some issues with nausea in the past related to the use. It is not a true allergy. I told him we will try some diclofenac and see if that helps. Will await final results of his sleep study as he will certainly need something to help him with his respirations at night. Exam (Progress Note) - Constitutional Vitals: Period Temp Pulse Resp BP Sys/Wynn Pulse Ox Last 24 Hr 97.8 F-98.7 F 52-91 16-18 99-132/55-86 93-99 Exam: Objective a well-developed white male no acute distress. He is sitting up almost on the bed eating his breakfast. Patient looks comfortable he states he still in quite a bit of pain. Cardiovascular: Heart rates regular with no murmurs or gallops. Respiratory: Lungs are clear to auscultation this morning. Abdomen: Abdomen soft, somewhat distended and nontender. Extremities: There is no calf swelling or tenderness. Results - Labs CBC & BMP: 09/13/16 03:35 09/16/16 05:47 Lab Results: I have reviewed the past 24 hour labs Assessment and Plan (1) Hydronephrosis Status: Resolved Assessment and plan: 09/14/2016: Renal colic CT to be ordered and ask urology to see him as well. 09/17/2016: Ureteral stent is in place. Patient still having quite a bit of renal colic 09/18/2016: Patient is having quite a bit of pain in the right flank. Hematuria persists 09/19/2016: Patient's pain persist. Current Visit: Yes Qualifiers: Hydronephrosis type: with ureteral calculous obstruction Qualified Code(s) : N13.2 - Hydronephrosis with renal and ureteral calculous obstruction (2) Congestive heart failure Status: Resolved Assessment and plan: 09/14/2016: Patient has had over 4 L of urine output. His dyspnea is certainly improved. 09/18/2016: chest x-ray shows improvement Current Visit: Yes (3) Acute and chronic respiratory failure Status: Acute Assessment and plan: 09/14/2016: ABGs were improved with diuresis. 09/17/2016: Patient is certainly improved. Patient certainly has sleep apnea and hypoventilation of obesity. 09/18/2016: Patient does not tolerate mask for his BiPAP. Nasal pillars are being sought. 09/19/2016: We are awaiting the results of his sleep study. Current Visit: Yes Specialty Discharge - Follow Up or Referrals Follow up with: Marcial Davies MD [Physician] - 09/24/16 8:30 am
--- NOTE | 2016-09-19 08:43 | Pulmonology Progress Note ---
Pulmonary - PN: Subj Interval history: This 61-year-old white male was admitted 2 days ago with increasing shortness of breath. He had an elevated BNP. His CT scan shows some interstitial edema and small pleural effusions. An echocardiogram is pending. We have given him Lasix and is better. ABGs are improved. He has an elevated PCO2. He may have obesity hypoventilation syndrome with superimposed congestive heart failure. We checked for pulmonary emboli since she had a hip replacement a couple months ago. No signs of emboli on CT scan. Venous Dopplers were negative also. At this point we can change him to nasal oxygen just shoot for an O2 sat of 88-92% . We'll stop his steroids. He does not have COPD. Need echo report. His chest CT indicates right hydronephrosis. We need to have neurology to see him. 09/17/16 patient is feeling better. He does not like the BiPAP since it's to rule out any doesn't tolerate the mask well. Sleep lab is due to see him. I will try him on nasal pillars. He will need to get a BiPAP machine to use at home. He has chronically elevated PCO2 and has pulmonary hypertension. I think he clearly has obesity hypoventilation syndrome and probably sleep apnea as well. 09/18/16 patient is walking in the [place]im[place] without dyspnea. However he has hypercarbia at rest. This fits best with obesity hypoventilation syndrome. We need to get a BiPAP device or trilogy device for him to use at home. We'll ask for sleep medicine to help us with this. He does not like the mask that he has on the hospital unit. I think he do best with nasal pillars. There may be a compliance problem. 09/19/16 patient had sleep evaluation overnight. Await word from Dr. Hinojosa on what device we can get him for home use. His congestive heart failure is better post diuretics. He has diastolic dysfunction and has pulmonary hypertension which is multifactorial. We'll put on low-dose Diamox and smaller dose of oral Lasix. Hopefully can be discharged soon when evaluation for LUCY/ OHS completed. Exam (Progress Note) - Constitutional Vitals: Period Temp Pulse Resp BP Sys/Wynn Pulse Ox Last 24 Hr 97.8 F-98.7 F 52-91 16-18 99-132/55-86 93-99 Exam: Patient is alert oriented cooperative. Vital signs normal. O2 sat 99% on 2L nasal. Pupils react to light. Throat is clear. Neck supple no bruits. Chest sounds clear now. Heart normal rate rhythm no murmurs. Abdomen obese unable to palpate abdominal organs. Bowel sounds present. Extremities no clubbing or cyanosis. He does have trace peripheral edema. Calves nontender. Results - Labs CBC & BMP: 09/13/16 03:35 09/16/16 05:47 Lab Results: I have reviewed the past 24 hour labs Assessment and Plan (1) Congestive heart failure Status: Resolved Assessment and plan: Patient has elevated BNP and edema. Basilar crackles. I suspect he is ahead on fluids and may have congestive heart failure. We need an echo cardiogram. Agree with empiric diuresis. 09/14/16 findings are consistent with congestive heart failure. We still need an at coat to help categorize. He feels better after diuresis. I will stop his steroids. Discussed case with Dr. Jesus Jaffe 09/17/16 he has diastolic congestive heart failure. Pulmonary hypertension is noted on echo. He is not markedly overweight but apparently has obesity hypoventilation syndrome and sleep apnea. Sleep lab is to see him and try to help us arrange BiPAP at home for him. He will need a sleep study at some point. He does not like the CPAP mask. He says the machine is too loud. 09/18/16 this is clearly improved. He does have pulmonary hypertension however. This indicates the need for treatment of his obesity hypoventilation syndrome. 09/19/16 symptoms improved. Change to oral Lasix and Diamox. Current Visit: Yes (2) Acute and chronic respiratory failure Status: Acute Assessment and plan: ABG show hypoxemia with an elevated PCO2. Patient has never been a smoker. He may have obesity hypoventilation syndrome. It does not appear that he has overdosed on pain medications. Pulmonary embolism is a consideration as well having had a hip replacement 2 months ago. Will evaluate with a CT PE protocol , echocardiogram, and venous Dopplers. Chronic interstitial lung disease is a possibility as well. Agree with empiric treatment with antibiotics. 09/14/16 PCO2 is down to 55. I think he has an element of obesity hypoventilation syndrome. Congestive heart failure in this range normally doesn 't cause an elevated PCO2. We will need to evaluate with sleep study when he is improved. 09/17/16 this is better with diuresis and treatment with BiPAP at night. 09/18/16 he is feeling better after diuresis. We are having trouble getting him to use the BiPAP. 09/19/16 this is primarily due to obesity hypoventilation syndrome. Current Visit: Yes (3) Renal calculus, right Status: Chronic Assessment and plan: Had recent lithotripsy and still having some flank pain. 09/14/[address] indicates some right hydronephrosis. Needs further evaluation and urology consult. Again discussed case with Dr. Jesus Jaffe who is going to address this. 09/17/16 he now has a right ureteral stent and the stone is coming out in fragments. Hopefully this will continue to clear and he can get the stent out in a few days. Dr. Davies is following. 09/18/[address] Davies. 09/19/16 symptoms improved. Current Visit: No (4) Hypertensive cardiovascular disease Status: Chronic Assessment and plan: Blood pressure is a little on the high side. Need to try to get systolic to 140 or less. 09/14/16 blood pressure fairly well controlled. 09/17/16 blood pressure is well controlled. 09/18/16 blood pressures look good. 122/84. 09/19/16 blood pressure continues to be well controlled now. Current Visit: No Specialty Discharge - Follow Up or Referrals Follow up with: Marcial Davies MD [Physician] - 09/24/16 8:30 am
[2016-09-19] MEDS ORDERED: FUROSEMIDE 40 MG TABLET PO SCH (09:00)
[2016-09-19] MEDS ORDERED: DICLOFENAC POTASSIUM 50 MG TABLET PO SCH (09:00)
[2016-09-19] MEDS ORDERED: acetaZOLAMIDE 250 MG TABLET PO SCH (09:00)
[2016-09-19] MEDS: METOPROLOL SUCCINATE XL 100 MG TABLET PO SCH (09:43)
[2016-09-19] MEDS: TAMSULOSIN 0.4 MG CAPSULE PO SCH (09:43)
[2016-09-19] MEDS: SPIRONOLACTONE 25 MG TABLET PO SCH (09:43)
[2016-09-19] MEDS: PANTOPRAZOLE 40 MG TABLET PO SCH (09:44)
--- NOTE | 2016-09-19 16:36 | Sleep Medicine Progress Note ---
Assessment and Plan (1) Unspecified sleep apnea Status: Chronic Assessment and plan: I think this patient will be best served by formal in lab titration with CPAP. He has significant underlying COPD and an element of chronic respiratory failure. He's had issues with CPAP and BiPAP while hospitalized. We have contacted [facility] and they have agreed to set him up empirically with auto CPAP but will require outpatient diagnostic sleep study to confirm need for CPAP. Apparently the insurance will not recognize in hospital HST evaluation. This will all be arranged today. Current Visit: Yes Qualifiers: Sleep apnea type: obstructive Qualified Code(s): G47.33 - Obstructive sleep apnea (adult) (pediatric) (2) Hypertension Status: Chronic Current Visit: No Qualifiers: Hypertension type: essential hypertension (3) Congestive heart failure Status: Resolved Current Visit: Yes Sleep Medicine Subjective Interval history: Patient had HST evaluation done last night and it did reveal mild obstructive sleep apnea with an AHI of 13.3 and lowest O2 sats of 85%. It should be noted that this study was done while the patient was on supplemental O2. The patient has [employer] insurance which is similar to Medicare but [facility] has told us that HST will not be accepted for CPAP prescription while done in hospital. He will require outpatient diagnostic polysomnography and I think that given his prior difficulty with BiPAP and CPAP while hospitalized, he would best be done in lab for formal titration as well, if required. He will require precertification with [employer] to have an in lab sleep study. This can be initiated on our end. [facility] has agreed to set him up with a loaner auto CPAP until the above is all accomplished. Exam (Progress Note) - Constitutional Vitals: Period Temp Pulse Resp BP Sys/Wynn Pulse Ox Last 24 Hr 97.8 F-99.1 F 73-91 16-18 99-146/55-86 92-99 Exam: HEENT unremarkable other than for class IV Mallampati exam. Neck supple without adenopathy or thyromegaly. Chest with fair air movement and no focal wheezes or rhonchi. Cardiac exam reveals a regular rhythm without murmur or gallop. Abdomen soft nontender Results - Labs CBC & BMP: 09/13/16 03:35 09/16/16 05:47 Lab Results: I have reviewed the past 24 hour labs Specialty Discharge - Follow Up or Referrals Follow up with: Marical Davies MD [Physician] - 09/24/16 8:30 am
[2016-09-19 16:45] VITALS: BP 131/87
--- NOTE | 2016-09-19 17:24 | Discharge Summary ---
Hospital Course - Hospital Course Hospital Course: Patient 61-year-old white male who was admitted through the emergency room with increasing shortness of breath. Patient was found to be hypoxic with significant elevation of his CO2 is well. It was felt that patient had hypoventilation related to obesity as well as sleep apnea. He was seen in consultation by Dr. Zelalem Castanon as well as Dr. Hinojosa. Patient did undergo a sleep study that showed significant apnea requiring CPAP. Patient was also burdened by right ureteral calculus and had undergone a ESWL recently. He was noted to have significant. In the fibrotic stranding and underwent right ureteral stenting by Dr. Davies. He still having flank pain and hematuria. Patient's feeling 100% better today and is anxious, insistent to go home. Diagnosis - Discharge Diagnosis (1) Hydronephrosis Status: Resolved (2) Congestive heart failure Status: Resolved (3) Acute and chronic respiratory failure Status: Acute Specialty Discharge - Follow Up or Referrals Follow up with: Jesus Jaffe MD [Primary Care Provider] - Marcial Davies MD [Physician] - 09/24/16 8:30 am Discharge Plan - Discharge Data Disposition: Disch To Home/Self Care Condition at Discharge: Stable Discharge Diet: advance to your usual diet Activity: resume usual activities as tolerated Hygiene: no restrictions Weight Bearing at Discharge: full weight bearing Contact your physician if you experience:: fever over 101 - Discharge Medications New HYDROcodone/ACETAMIN 10-325 [[place] 10-325] 1 tablet PO Q4H PRN #60 tablet PRN Reason: Pain Moderate (4-7) Spironolactone [Aldactone] 25 mg PO BID #60 tablet Tamsulosin [Flomax] 0.4 mg PO DAILY #30 capsule Albuterol/Ipratropium Neb [Duoneb] 3 ml RESP TX RT Q6H #120 nebulization solution Continue Metoprolol Succinate Xl [Toprol Xl] 100 mg PO DAILY Atorvastatin [Lipitor] 20 mg PO BEDTIME Omeprazole [Prilosec] 20 mg PO DAILY amLODIPine [Norvasc] 10 mg PO DAILY Levothyroxine Tab [Synthroid Tab] 100 mcg PO DAILY@0700 Aspirin Tab 325 mg PO DAILY Potassium Chloride 10 meq PO BID rOPINIRole [Requip] 0.5 mg PO BEDTIME Furosemide Tab [Lasix Tab] 40 mg PO DAILY Tamsulosin [Flomax] 0.4 mg PO DAILY Discontinued metOLazone [Metolazone] 2.5 mg PO DAILY - Follow Up or Referral Follow Up: Jesus Jaffe MD [Primary Care Provider] - Marcial Davies MD [Physician] - 09/24/16 8:30 am - Forms/Instructions Exam - Constitutional Vitals: Period Temp Pulse Resp BP Sys/Wynn Pulse Ox Last 24 Hr 97.8 F-99.2 F 73-91 16-19 99-146/55-87 92-99 Exam: Objective a well-developed white male no acute distress. He is sitting up almost on the bed eating his supper. Patient looks comfortable he states he still in quite a bit of pain but is anxious to go home. Cardiovascular: Heart rates regular with no murmurs or gallops. Respiratory: Lungs are clear to auscultation this morning. Abdomen: Abdomen soft, somewhat distended and nontender. Extremities: There is no calf swelling or tenderness. Discharge Results Labs on day of discharge: Labs from last 24 hours 09/13/16 09:02 Legionella pneumophila Ab Negative M.pneumoniae IgG Titer 2.55 M.pneumoniae IgM Titer 0.15 DS: Provider Date of admission: 09/13/16 05:21 Primary care physician: Jesus Jaffe MD Attending physician on admission: Jesus Jaffe MD Consults: 09/13/16 08:05 Consult to Physician [CONS] Routine Comment: Consulting Provider: [facility] 09/14/16 07:51 Consult to Physician [CONS] Routine Comment: Consulting Provider: Marcial Davies Consulting Provider Notified: Yes Consult to Specialist Group: Urology Person Notified: DAMARIS Date Notified: 09/14/16 Time Notified: 09:00 09/14/16 09:44 Consult to Physician [CONS] Routine Comment: Consulting Provider: Cardiology - [facility] Person Notified: raheem rosen Date Notified: 09/14/16 Time Notified: 09:47 Consult Notification Comment: notified of consult for surgery clearance 09/14/16 11:30 Consult to Sleep Center [CONS] Routine Reason for Sleep Center: Sleep Center Physician Consult Comment: prob [facility], hypercarbia, PHT 09/18/16 08:37 Consult to Sleep Center [CONS] Routine Reason for Sleep Center: Sleep Center Physician Consult Comment: [facility]. Needs home BiPAP or trilogy device,with nasal pillars Discharging clinician: Jesus Jaffe MD Expected date of discharge: 09/19/16
== END 2016-09-19 18:15 | disposition home or self-care (01) | DRG 291 ==
LOC: N.ED 02:40 → N.EDINP 05:21 → N.ICU 05:53 → N.3E 09-15 13:33
PROVIDERS: ADMIT Family Medicine; ATTEND Family Medicine

== ENCOUNTER 2017-11-26 05:21 | Inpatient (IN) ==
[2017-11-26] MEDS ORDERED: VANCOMYCIN INJ 1,000 MG in SODIUM CHLORIDE 0.9% 250 ML IV ONE (06:00)
[2017-11-26] MEDS ORDERED: CLINDAMYCIN INJ 50 ML IV ONE (06:13)
[2017-11-26] MEDS ORDERED: VANCOMYCIN 1,000 MG VIAL ONE (06:13)
[2017-11-26] MEDS ORDERED: TRANEXAMIC ACID 1,000 MG/10 ML VIAL IV ONE (06:38)
[2017-11-26] MEDS ORDERED: BACITRACIN OINT 0.9 GM PACK TOP ONE (06:38)
[2017-11-26] MEDS ORDERED: BUPIVACAINE SPINAL 0.75% 2 ML AMP SPINAL ONE (06:48)
[2017-11-26] MEDS ORDERED: LACTATED RINGERS 1,000 ML IV SCH (07:00)
[2017-11-26] MEDS ORDERED: DIAZEPAM 5 MG TABLET PO ONE (07:05)
[2017-11-26] MEDS ORDERED: FAMOTIDINE 20 MG TABLET PO ONE (07:05)
[2017-11-26] MEDS ORDERED: ALBUTEROL/IPRATROPIUM 3 ML NEB RESP TX PRN (07:22)
[2017-11-26] MEDS ORDERED: diphenhydrAMINE CAP 25 MG CAPSULE PO PRN (07:27)
[2017-11-26] MEDS ORDERED: HYDROmorphone 2 MG/1 ML VIAL IV PRN (07:27)
[2017-11-26] MEDS ORDERED: oxyCODONE IR 5 MG TABLET PO PRN (07:27)
[2017-11-26] MEDS ORDERED: MAGNESIUM HYDROXIDE SUSP 30 ML UDCUP PO PRN (07:27)
[2017-11-26] MEDS ORDERED: ONDANSETRON 4 MG/2 ML VIAL IV PRN ×2 (07:27→08:58)
[2017-11-26] MEDS ORDERED: ROPIVACAINE 0.5% 30 ML VIAL ONE (07:49)
[2017-11-26] MEDS ORDERED: ALBUTEROL/IPRATROPIUM 3 ML NEB RESP TX ONE ×2 (08:47→08:57)
[2017-11-26] MEDS ORDERED: ONDANSETRON 4 MG/2 ML VIAL ONE ×2 (08:50→09:26)
[2017-11-26] MEDS ORDERED: HYDROmorphone 2 MG/1 ML VIAL ONE (08:50)
[2017-11-26] MEDS: HYDROmorphone 2 MG/1 ML VIAL IV PRN ×5 (08:52→22:58)
[2017-11-26] MEDS ORDERED: VALSARTAN 80 MG TABLET PO SCH (09:00)
[2017-11-26] MEDS ORDERED: PROPOFOL 200 MG/20 ML VIAL IV ONE (09:25)
[2017-11-26] MEDS ORDERED: SEVOFLURANE 1 UNIT/15 MINUTE INH ONE (09:25)
[2017-11-26] MEDS ORDERED: ePHEDrine 50 MG/ML AMP ONE (09:26)
[2017-11-26] MEDS ORDERED: NEOSTIGMINE 10 MG/10 ML VIAL ONE (09:26)
[2017-11-26] MEDS ORDERED: GLYCOPYRROLATE 0.4 MG/2 ML VIAL ONE (09:26)
[2017-11-26] MEDS ORDERED: MIDAZOLAM 2 MG/2 ML VIAL ONE (09:26)
[2017-11-26] MEDS ORDERED: ACETAMINOPHEN 1,000 MG/100 ML VIAL IV ONE (09:26)
[2017-11-26] MEDS ORDERED: SODIUM CHLORIDE 0.9% 250 ML IV ONE (09:26)
[2017-11-26] MEDS ORDERED: SODIUM CHLORIDE 0.9% 200 ML IV ONE (09:26)
[2017-11-26] MEDS ORDERED: ROCURONIUM 100 MG/10 ML VIAL IV ONE (09:26)
[2017-11-26] MEDS ORDERED: PHENYLEPHRINE 10 MG/1 ML VIAL IV ONE (09:26)
[2017-11-26] MEDS ORDERED: LACTATED RINGERS 500 ML IV ONE (09:52)
[2017-11-26] MEDS: ACETAMINOPHEN 500 MG TABLET PO SCH ×2 (12:08→17:45)
[2017-11-26] MEDS: oxyCODONE IR 5 MG TABLET PO PRN (12:09)
[2017-11-26 12:28] LABS: Basophils % 0.3 % (0.0-0.8); Eosinophils % 0.3 % (0.00-10.9); Hematocrit 37.8 VOL% (42.0-52.0); Hemoglobin 12.2 GM/DL (14.0-18.0); Immature Granulocytes % 0.6 %; Immature Granulocytes Absolute 0.07 #; Lymphocytes # 1.2 10*3/uL (1.4-4.0); Lymphocytes % 9.8 % (21.2-54.2); Mean Corpuscular HGB Conc 32.3 GM/DL (32-36); Mean Corpuscular Hemoglobin 32 PG (27-34); Mean Corpuscular Volume 98.4 FL (87-102); Mean Platelet Volume 9.6 FL (9.6-12.0); Monocytes # 0.8 10*3/uL (0.11-0.8); Monocytes % 6.3 % (1.7-12.7); Neutrophils % 82.7 % (38.7-73.9); Platelet Count 255 T/CUMM (130-400); Red Blood Count 3.84 MC/CUMM (3.8-5.5); Red Cell Distribution Width 13.1 % (9.3-17.3); White Blood Count 12.1 T/CUMM (4-12)
[2017-11-26 12:47] LABS: Giant Platelets Few; Hypochromasia 1+; Ovalocytes Slight; Platelet Estimate Adequate
[2017-11-26 12:54] LABS: Calcium 8.6 MG/DL (8.5-10.1); Osmolality,Calculated 279.7 MOS/KG (273-304); Potassium 4.3 MMOL/L (3.5-5.1)
[2017-11-26] MEDS: LACTATED RINGERS 1,000 ML IV SCH (12:56)
[2017-11-26] MEDS: FUROSEMIDE 20 MG TABLET PO SCH (12:56)
[2017-11-26] MEDS: FUROSEMIDE 40 MG TABLET PO SCH (12:56)
[2017-11-26] MEDS: TAMSULOSIN 0.4 MG CAPSULE PO SCH (12:57)
[2017-11-26] MEDS: KETOROLAC 30 MG/1 ML VIAL IV SCH ×3 (12:57→20:01)
[2017-11-26] MEDS: POTASSIUM CHLORIDE 10 MEQ TABLET PO SCH ×2 (12:57→21:14)
[2017-11-26] MEDS: DOCUSATE SODIUM 100 MG CAPSULE PO SCH ×2 (12:57→21:14)
[2017-11-26] MEDS: CLINDAMYCIN INJ 900 MG in PREMIX 1 EACH IV SCH ×2 (14:28→22:57)
[2017-11-26] MEDS: rOPINIRole 0.25 MG TABLET PO SCH (21:13)
[2017-11-26] MEDS: ATORVASTATIN 20 MG TABLET PO SCH (21:14)
[2017-11-26] MEDS: FINASTERIDE 5 MG TABLET PO SCH (21:14)
[2017-11-27] MEDS: FONDAPARINUX 2.5 MG/0.5 ML SYRINGE SUBCUT SCH (01:15)
[2017-11-27] MEDS: ACETAMINOPHEN 500 MG TABLET PO SCH ×2 (01:15→09:08)
[2017-11-27] MEDS: KETOROLAC 30 MG/1 ML VIAL IV SCH (01:16)
[2017-11-27 05:11] LABS: Basophils % 0.5 % (0.0-0.8); Eosinophils # 0.3 10*3/uL (0.0-0.87); Hematocrit 29.5 VOL% (42.0-52.0); Hemoglobin 9.6 GM/DL (14.0-18.0); Immature Granulocytes % 0.8 %; Immature Granulocytes Absolute 0.07 #; Lymphocytes # 1.6 10*3/uL (1.4-4.0); Lymphocytes % 19.8 % (21.2-54.2); Mean Corpuscular HGB Conc 32.5 GM/DL (32-36); Mean Corpuscular Hemoglobin 32 PG (27-34); Mean Platelet Volume 9.7 FL (9.6-12.0); Monocytes # 0.8 10*3/uL (0.11-0.8); Monocytes % 9.1 % (1.7-12.7); Neutrophils # 5.4 10*3/uL (1.4-7.4); Neutrophils % 65.8 % (38.7-73.9); Platelet Count 184 T/CUMM (130-400); Red Blood Count 2.98 MC/CUMM (3.8-5.5); Red Cell Distribution Width 13.2 % (9.3-17.3); White Blood Count 8.3 T/CUMM (4-12)
[2017-11-27 05:23] LABS: Calcium 7.5 MG/DL (8.5-10.1); Osmolality,Calculated 276.8 MOS/KG (273-304); Potassium 4.1 MMOL/L (3.5-5.1)
[2017-11-27] MEDS: LACTATED RINGERS 1,000 ML IV SCH ×2 (07:18→13:38)
[2017-11-27] MEDS: LEVOTHYROXINE 100 MCG TABLET PO SCH (09:06)
[2017-11-27] MEDS: POTASSIUM CHLORIDE 10 MEQ TABLET PO SCH ×2 (09:06→20:14)
[2017-11-27] MEDS: FINASTERIDE 5 MG TABLET PO SCH (09:06)
[2017-11-27] MEDS: DOCUSATE SODIUM 100 MG CAPSULE PO SCH ×2 (09:06→20:14)
[2017-11-27] MEDS: PANTOPRAZOLE 40 MG TABLET PO SCH (09:06)
[2017-11-27] MEDS: TAMSULOSIN 0.4 MG CAPSULE PO SCH (09:06)
[2017-11-27] MEDS: METOPROLOL SUCCINATE XL 100 MG TABLET PO SCH (09:07)
[2017-11-27] MEDS: FUROSEMIDE 40 MG TABLET PO SCH (09:07)
[2017-11-27] MEDS: FUROSEMIDE 20 MG TABLET PO SCH (09:07)
[2017-11-27] MEDS: amLODIPine 10 MG TABLET PO SCH (09:08)
[2017-11-27] MEDS: HYDROmorphone 2 MG/1 ML VIAL IV PRN ×2 (12:13→23:55)
[2017-11-27] MEDS: rOPINIRole 0.25 MG TABLET PO SCH (20:14)
[2017-11-27] MEDS: ATORVASTATIN 20 MG TABLET PO SCH (20:14)
[2017-11-28] MEDS: FONDAPARINUX 2.5 MG/0.5 ML SYRINGE SUBCUT SCH (00:29)
[2017-11-28 04:56] LABS: Basophils % 0.5 % (0.0-0.8); Eosinophils # 0.5 10*3/uL (0.0-0.87); Eosinophils % 5.7 % (0.00-10.9); Hematocrit 30.5 VOL% (42.0-52.0); Hemoglobin 10.3 GM/DL (14.0-18.0); Immature Granulocytes % 0.5 %; Immature Granulocytes Absolute 0.04 #; Lymphocytes % 23.6 % (21.2-54.2); Mean Corpuscular HGB Conc 33.8 GM/DL (32-36); Mean Corpuscular Hemoglobin 33 PG (27-34); Mean Corpuscular Volume 97.8 FL (87-102); Mean Platelet Volume 9.7 FL (9.6-12.0); Monocytes # 0.9 10*3/uL (0.11-0.8); Monocytes % 10.7 % (1.7-12.7); Platelet Count 210 T/CUMM (130-400); Red Blood Count 3.12 MC/CUMM (3.8-5.5); Red Cell Distribution Width 13.4 % (9.3-17.3); White Blood Count 8.4 T/CUMM (4-12)
[2017-11-28] MEDS: oxyCODONE IR 5 MG TABLET PO PRN (05:08)
[2017-11-28 05:27] LABS: Calcium 8.1 MG/DL (8.5-10.1); Osmolality,Calculated 278.5 MOS/KG (273-304); Potassium 4.1 MMOL/L (3.5-5.1)
[2017-11-28] MEDS: LEVOTHYROXINE 100 MCG TABLET PO SCH (06:09)
[2017-11-28 08:00] VITALS: BP 126/71
[2017-11-28] MEDS: FUROSEMIDE 20 MG TABLET PO SCH (08:34)
[2017-11-28] MEDS: FUROSEMIDE 40 MG TABLET PO SCH (08:34)
[2017-11-28] MEDS: TAMSULOSIN 0.4 MG CAPSULE PO SCH (08:35)
[2017-11-28] MEDS: PANTOPRAZOLE 40 MG TABLET PO SCH (08:35)
[2017-11-28] MEDS: POTASSIUM CHLORIDE 10 MEQ TABLET PO SCH (08:35)
[2017-11-28] MEDS: DOCUSATE SODIUM 100 MG CAPSULE PO SCH (08:35)
[2017-11-28] MEDS: FINASTERIDE 5 MG TABLET PO SCH (08:35)
[2017-11-28] MEDS: METOPROLOL SUCCINATE XL 100 MG TABLET PO SCH (08:35)
[2017-11-28] MEDS: amLODIPine 10 MG TABLET PO SCH (08:36)
== END 2017-11-28 11:10 | disposition home health service (06) | DRG 489 ==
LOC: N.OR 05:21 → N.SDSINP 05:23 → N.3E 07:28
PROVIDERS: ADMIT Orthopaedic Surgery; ATTEND Orthopaedic Surgery

== ENCOUNTER 2018-08-07 09:30 | Observation (INO) ==
[2018-08-07] MEDS ORDERED: ACETAMINOPHEN 325 MG TABLET PO PRN (11:10)
[2018-08-07] MEDS ORDERED: ONDANSETRON 4 MG/2 ML VIAL IV PRN (11:10)
[2018-08-07] MEDS ORDERED: LEVOFLOXACIN INJ 750 MG in PREMIX 1 EACH IV SCH (12:00)
[2018-08-07 12:59] LABS: Basophils # 0.1 10*3/uL (0.0-0.2); Basophils % 0.8 % (0.0-0.8); Eosinophils # 0.2 10*3/uL (0.0-0.87); Eosinophils % 2.6 % (0.00-10.9); Hematocrit 41.6 VOL% (42.0-52.0); Hemoglobin 13.5 GM/DL (14.0-18.0); Immature Granulocytes % 0.7 %; Immature Granulocytes Absolute 0.06 #; Lymphocytes # 2.3 10*3/uL (1.4-4.0); Lymphocytes % 25.1 % (21.2-54.2); Mean Corpuscular HGB Conc 32.5 GM/DL (32-36); Mean Corpuscular Hemoglobin 31 PG (27-34); Mean Corpuscular Volume 96.1 FL (87-102); Mean Platelet Volume 9.5 FL (9.6-12.0); Monocytes # 0.8 10*3/uL (0.11-0.8); Monocytes % 8.7 % (1.7-12.7); Neutrophils # 5.6 10*3/uL (1.4-7.4); Neutrophils % 62.1 % (38.7-73.9); Platelet Count 264 T/CUMM (130-400); Red Blood Count 4.33 MC/CUMM (3.8-5.5); Red Cell Distribution Width 14.1 % (9.3-17.3)
[2018-08-07 13:28] LABS: Albumin 3.8 G/DL (3.4-5.0); Bilirubin,Total 0.5 MG/DL (0.2-1.0); Calcium 9.3 MG/DL (8.5-10.1); Osmolality,Calculated 280.5 MOS/KG (273-304); Potassium 3.7 MMOL/L (3.5-5.1); Total Protein 8.1 G/DL (6.4-8.3)
[2018-08-07] MEDS ORDERED: ALBUTEROL/IPRATROPIUM 3 ML NEB RESP TX PRN (13:48)
[2018-08-07] MEDS ORDERED: ENOXAPARIN 40 MG/0.4 ML SYRINGE SUBCUT SCH (14:00)
[2018-08-07] MEDS: SODIUM CHLORIDE 0.45% 1,000 ML IV SCH (14:04)
[2018-08-07] MEDS: HYDROmorphone 2 MG/1 ML VIAL IV PRN ×3 (14:24→21:17)
[2018-08-07] MEDS: metroNIDAZOLE INJ 500 MG in PREMIX 1 EACH IV SCH ×2 (17:11→21:18)
[2018-08-07 19:18] LABS: Apearance,Urine Slightly Hazy (Clear); Bilirubin,Urine Negative (Negative); Blood, Urine Large mg/dL (Negative); Glucose,Urine (UA) Negative (Negative); Ketones,Urine Negative (Negative); Mucus,Urine Occasional /LPF (Occasional); Nitrite,Urine Negative (Negative); Protein,Urine Negative; RBC,Urine 138 /HPF (0-4); Squamous Epithelial Cell,Urine Occasional /HPF (0-10); Urine Color Yellow (Yellow); Urine Specific Gravity 1.053 (1.001-1.035); Urine Urobilinogen < 2.0 EU/DL (0.2-1.0); WBC,Urine 34 /HPF (0-6)
[2018-08-07] MEDS ORDERED: rOPINIRole 0.25 MG TABLET PO SCH (21:00)
[2018-08-07] MEDS ORDERED: ATORVASTATIN 20 MG TABLET PO SCH (21:00)
[2018-08-08] MEDS: HYDROmorphone 2 MG/1 ML VIAL IV PRN ×2 (03:01→09:40)
[2018-08-08] MEDS: SODIUM CHLORIDE 0.45% 1,000 ML IV SCH ×3 (03:02→12:46)
[2018-08-08] MEDS: metroNIDAZOLE INJ 500 MG in PREMIX 1 EACH IV SCH (06:16)
[2018-08-08] MEDS ORDERED: LEVOTHYROXINE 100 MCG TABLET PO SCH (07:00)
[2018-08-08] MEDS ORDERED: amLODIPine 10 MG TABLET PO SCH (09:00)
[2018-08-08] MEDS ORDERED: FUROSEMIDE 40 MG TABLET PO SCH (09:00)
[2018-08-08] MEDS ORDERED: METOPROLOL SUCCINATE XL 100 MG TABLET PO SCH (09:00)
[2018-08-08] MEDS ORDERED: TAMSULOSIN 0.4 MG CAPSULE PO SCH (09:00)
[2018-08-08] MEDS ORDERED: FINASTERIDE 5 MG TABLET PO SCH (09:00)
[2018-08-08 10:40] VITALS: BP 144/91
== END 2018-08-08 12:00 | disposition home or self-care (01) ==
LOC: N.2W → N.5E 15:35 → EDSTATUS 08-08 07:30
PROVIDERS: ADMIT Family Medicine; ATTEND Family Medicine

== ENCOUNTER 2019-01-13 06:16 | Inpatient (IN) ==
[2019-01-13] MEDS ORDERED: VANCOMYCIN INJ 1,000 MG in SODIUM CHLORIDE 0.9% 250 ML IV ONE (07:20)
[2019-01-13] MEDS ORDERED: MIDAZOLAM 2 MG/2 ML VIAL IV ONE (07:20)
[2019-01-13] MEDS ORDERED: fentaNYL 100 MCG/2 ML VIAL IV ONE (07:20)
[2019-01-13] MEDS ORDERED: DIAZEPAM 5 MG TABLET PO ONE (08:00)
[2019-01-13] MEDS: SODIUM CHLORIDE 0.45% 1,000 ML IV SCH (08:14)
[2019-01-13] MEDS ORDERED: DIAZEPAM 5 MG TABLET ONE (08:17)
[2019-01-13] MEDS ORDERED: VANCOMYCIN 1,000 MG VIAL ONE (08:17)
[2019-01-13] MEDS ORDERED: fentaNYL 100 MCG/2 ML VIAL ONE (12:17)
[2019-01-13] MEDS ORDERED: MIDAZOLAM 2 MG/2 ML VIAL ONE (12:18)
[2019-01-13] MEDS ORDERED: ONDANSETRON 4 MG/2 ML VIAL IV PRN (13:22)
[2019-01-13] MEDS ORDERED: PROMETHAZINE 25 MG/1 ML VIAL IM PRN (13:22)
[2019-01-13] MEDS ORDERED: ALBUTEROL/IPRATROPIUM 3 ML NEB RESP TX PRN (13:32)
[2019-01-13] MEDS: oxyCODONE/ACETAMINOPHEN 5-325 MG TABLET PO PRN (14:37)
[2019-01-13] MEDS: ACETAMINOPHEN 325 MG TABLET PO SCH ×2 (14:38→21:00)
[2019-01-13 15:23] LABS: Basophils % 0.6 % (0.0-0.8); Eosinophils # 0.3 10*3/uL (0.0-0.87); Eosinophils % 5.1 % (0.00-10.9); Hematocrit 38.6 VOL% (42.0-52.0); Hemoglobin 12.3 GM/DL (14.0-18.0); Immature Granulocytes % 0.5 %; Immature Granulocytes Absolute 0.03 #; Lymphocytes # 1.9 10*3/uL (1.4-4.0); Lymphocytes % 28.7 % (21.2-54.2); Mean Corpuscular HGB Conc 31.9 GM/DL (32-36); Mean Platelet Volume 9.6 FL (9.6-12.0); Monocytes % 9.7 % (1.7-12.7); Neutrophils % 55.4 % (38.7-73.9); Platelet Count 215 T/CUMM (130-400); Red Blood Count 3.86 MC/CUMM (3.8-5.5); Red Cell Distribution Width 13.2 % (9.3-17.3); White Blood Count 6.6 T/CUMM (4-12)
[2019-01-13] MEDS: HYDROmorphone 2 MG/1 ML VIAL IV PRN ×2 (15:28→21:00)
[2019-01-13 15:38] LABS: Calcium 8.9 MG/DL (8.5-10.1); Osmolality,Calculated 285.3 MOS/KG (273-304)
[2019-01-13] MEDS: SODIUM CHLORIDE 0.9% 1,000 ML IV SCH (15:47)
[2019-01-13] MEDS: VANCOMYCIN INJ 1,250 MG in SODIUM CHLORIDE 0.9% 250 ML IV SCH (17:04)
[2019-01-13] MEDS: ATORVASTATIN 20 MG TABLET PO SCH (20:59)
[2019-01-13] MEDS: rOPINIRole 0.25 MG TABLET PO SCH (20:59)
[2019-01-13] MEDS: POTASSIUM CHLORIDE 10 MEQ TABLET PO SCH (21:00)
[2019-01-14] MEDS: SODIUM CHLORIDE 0.9% 1,000 ML IV SCH (00:41)
[2019-01-14] MEDS: oxyCODONE/ACETAMINOPHEN 5-325 MG TABLET PO PRN ×2 (00:42→21:37)
[2019-01-14] MEDS: HYDROmorphone 2 MG/1 ML VIAL IV PRN ×5 (02:08→18:21)
[2019-01-14] MEDS: ACETAMINOPHEN 325 MG TABLET PO SCH ×4 (02:10→21:36)
[2019-01-14 05:18] LABS: Basophils # 0.1 10*3/uL (0.0-0.2); Basophils % 0.7 % (0.0-0.8); Eosinophils # 0.3 10*3/uL (0.0-0.87); Eosinophils % 4.2 % (0.00-10.9); Hematocrit 36.3 VOL% (42.0-52.0); Hemoglobin 11.2 GM/DL (14.0-18.0); Immature Granulocytes % 0.4 %; Immature Granulocytes Absolute 0.03 #; Lymphocytes # 2.2 10*3/uL (1.4-4.0); Lymphocytes % 29.2 % (21.2-54.2); Mean Corpuscular HGB Conc 30.9 GM/DL (32-36); Mean Corpuscular Volume 102.8 FL (87-102); Mean Platelet Volume 9.9 FL (9.6-12.0); Monocytes % 10.6 % (1.7-12.7); Neutrophils % 54.9 % (38.7-73.9); Platelet Count 212 T/CUMM (130-400); Red Blood Count 3.53 MC/CUMM (3.8-5.5); Red Cell Distribution Width 13.3 % (9.3-17.3); White Blood Count 7.4 T/CUMM (4-12)
[2019-01-14 05:47] LABS: Calcium 8.6 MG/DL (8.5-10.1); Osmolality,Calculated 283.3 MOS/KG (273-304)
[2019-01-14] MEDS: LEVOTHYROXINE 100 MCG TABLET PO SCH (05:56)
[2019-01-14] MEDS: VANCOMYCIN INJ 1,250 MG in SODIUM CHLORIDE 0.9% 250 ML IV SCH ×2 (06:01→18:08)
[2019-01-14] MEDS: amLODIPine 10 MG TABLET PO SCH (08:32)
[2019-01-14] MEDS: METOPROLOL SUCCINATE XL 100 MG TABLET PO SCH (08:32)
[2019-01-14] MEDS: TAMSULOSIN 0.4 MG CAPSULE PO SCH (08:32)
[2019-01-14] MEDS: LEVOFLOXACIN 500 MG TABLET PO SCH (08:33)
[2019-01-14] MEDS: FUROSEMIDE 40 MG TABLET PO SCH (08:33)
[2019-01-14] MEDS: PANTOPRAZOLE 40 MG TABLET PO SCH (08:33)
[2019-01-14] MEDS: POTASSIUM CHLORIDE 10 MEQ TABLET PO SCH ×2 (08:33→21:37)
[2019-01-14] MEDS: FINASTERIDE 5 MG TABLET PO SCH (08:33)
[2019-01-14] MEDS: VALSARTAN 80 MG TABLET PO SCH (08:33)
[2019-01-14] MEDS ORDERED: BUPIVACAINE MPF 0.25% 30 ML VIAL ONE (10:27)
[2019-01-14] MEDS: FUROSEMIDE 20 MG TABLET PO SCH (12:52)
[2019-01-14] MEDS ORDERED: MIDAZOLAM 2 MG/2 ML VIAL ONE (13:48)
[2019-01-14] MEDS ORDERED: fentaNYL 100 MCG/2 ML VIAL ONE (13:48)
[2019-01-14] MEDS ORDERED: PROPOFOL 200 MG/20 ML VIAL IV ONE (13:49)
[2019-01-14] MEDS ORDERED: SEVOFLURANE 1 UNIT/15 MINUTE INH ONE (13:49)
[2019-01-14] MEDS ORDERED: ePHEDrine 50 MG/ML AMP ONE (13:54)
[2019-01-14] MEDS ORDERED: ONDANSETRON 4 MG/2 ML VIAL ONE (13:54)
[2019-01-14] MEDS ORDERED: GLYCOPYRROLATE 0.4 MG/2 ML VIAL ONE (13:54)
[2019-01-14] MEDS ORDERED: ACETAMINOPHEN 1,000 MG/100 ML VIAL IV ONE (13:54)
[2019-01-14] MEDS ORDERED: PHENYLEPHRINE 10 MG/1 ML VIAL IV ONE (13:54)
[2019-01-14] MEDS ORDERED: PHENYLEPHRINE 1 MG/10 ML SYRINGE IV ONE (13:54)
[2019-01-14] MEDS ORDERED: NEOSTIGMINE 10 MG/10 ML VIAL ONE (13:55)
[2019-01-14] MEDS ORDERED: ROCURONIUM 100 MG/10 ML VIAL IV ONE (13:55)
[2019-01-14] MEDS ORDERED: SODIUM CHLORIDE 0.9% 100 ML IV ONE (13:55)
[2019-01-14] MEDS ORDERED: LACTATED RINGERS 1,000 ML IV ONE (13:55)
[2019-01-14] MEDS ORDERED: SUCCINYLCHOLINE 200 MG/10 ML VIAL ONE (13:55)
[2019-01-14] MEDS ORDERED: HYDROmorphone 2 MG/1 ML VIAL ONE (14:02)
[2019-01-14 14:07] LABS: Basophils # 0.1 10*3/uL (0.0-0.2); Basophils % 0.6 % (0.0-0.8); Eosinophils # 0.3 10*3/uL (0.0-0.87); Hematocrit 36.6 VOL% (42.0-52.0); Hemoglobin 11.5 GM/DL (14.0-18.0); Immature Granulocytes % 0.6 %; Immature Granulocytes Absolute 0.05 #; Lymphocytes % 22.8 % (21.2-54.2); Mean Corpuscular HGB Conc 31.4 GM/DL (32-36); Mean Corpuscular Volume 102.2 FL (87-102); Mean Platelet Volume 9.6 FL (9.6-12.0); Monocytes % 9.3 % (1.7-12.7); Neutrophils % 63.7 % (38.7-73.9); Platelet Count 197 T/CUMM (130-400); Red Blood Count 3.58 MC/CUMM (3.8-5.5); Red Cell Distribution Width 13.2 % (9.3-17.3); White Blood Count 8.6 T/CUMM (4-12)
[2019-01-14] MEDS ORDERED: ONDANSETRON 4 MG/2 ML VIAL IV PRN (14:09)
[2019-01-14 14:24] LABS: Calcium 8.4 MG/DL (8.5-10.1); Osmolality,Calculated 283.3 MOS/KG (273-304)
[2019-01-14] MEDS: SODIUM CHLORIDE 0.45% 1,000 ML IV SCH (15:11)
[2019-01-14] MEDS: ATORVASTATIN 20 MG TABLET PO SCH (21:37)
[2019-01-14] MEDS: rOPINIRole 0.25 MG TABLET PO SCH (21:37)
[2019-01-15] MEDS: HYDROmorphone 2 MG/1 ML VIAL IV PRN ×5 (00:42→22:33)
[2019-01-15] MEDS: ACETAMINOPHEN 325 MG TABLET PO SCH ×4 (01:12→21:26)
[2019-01-15 05:44] LABS: Basophils % 0.4 % (0.0-0.8); Eosinophils # 0.3 10*3/uL (0.0-0.87); Eosinophils % 3.2 % (0.00-10.9); Hematocrit 34.7 VOL% (42.0-52.0); Hemoglobin 10.5 GM/DL (14.0-18.0); Immature Granulocytes % 0.5 %; Immature Granulocytes Absolute 0.04 #; Lymphocytes # 1.6 10*3/uL (1.4-4.0); Lymphocytes % 20.2 % (21.2-54.2); Mean Corpuscular HGB Conc 30.3 GM/DL (32-36); Mean Corpuscular Volume 103.9 FL (87-102); Neutrophils % 64.7 % (38.7-73.9); Platelet Count 193 T/CUMM (130-400); Red Blood Count 3.34 MC/CUMM (3.8-5.5); Red Cell Distribution Width 13.3 % (9.3-17.3); White Blood Count 8.1 T/CUMM (4-12)
[2019-01-15 06:02] LABS: Calcium 8.4 MG/DL (8.5-10.1); Osmolality,Calculated 285.8 MOS/KG (273-304)
[2019-01-15] MEDS: LEVOTHYROXINE 100 MCG TABLET PO SCH (06:02)
[2019-01-15] MEDS: VANCOMYCIN INJ 1,250 MG in SODIUM CHLORIDE 0.9% 250 ML IV SCH ×2 (06:02→17:44)
[2019-01-15] MEDS: oxyCODONE/ACETAMINOPHEN 5-325 MG TABLET PO PRN ×3 (06:02→21:27)
[2019-01-15] MEDS: SODIUM CHLORIDE 0.9% 1,000 ML IV SCH (06:04)
[2019-01-15] MEDS: FINASTERIDE 5 MG TABLET PO SCH (08:44)
[2019-01-15] MEDS: VALSARTAN 80 MG TABLET PO SCH (08:45)
[2019-01-15] MEDS: LEVOFLOXACIN 500 MG TABLET PO SCH (08:45)
[2019-01-15] MEDS: TAMSULOSIN 0.4 MG CAPSULE PO SCH (08:45)
[2019-01-15] MEDS: FUROSEMIDE 40 MG TABLET PO SCH (08:45)
[2019-01-15] MEDS: POTASSIUM CHLORIDE 10 MEQ TABLET PO SCH ×2 (08:45→21:27)
[2019-01-15] MEDS: PANTOPRAZOLE 40 MG TABLET PO SCH (08:45)
[2019-01-15] MEDS: METOPROLOL SUCCINATE XL 100 MG TABLET PO SCH (08:46)
[2019-01-15] MEDS: amLODIPine 10 MG TABLET PO SCH (08:51)
[2019-01-15] MEDS: SODIUM CHLORIDE 0.45% 1,000 ML IV SCH (08:54)
[2019-01-15] MEDS: FUROSEMIDE 20 MG TABLET PO SCH (12:31)
[2019-01-15] MEDS: ATORVASTATIN 20 MG TABLET PO SCH (21:27)
[2019-01-15] MEDS: rOPINIRole 0.25 MG TABLET PO SCH (21:27)
[2019-01-16] MEDS: oxyCODONE/ACETAMINOPHEN 5-325 MG TABLET PO PRN ×2 (01:11→06:10)
[2019-01-16] MEDS: ACETAMINOPHEN 325 MG TABLET PO SCH ×2 (03:15→08:30)
[2019-01-16] MEDS: HYDROmorphone 2 MG/1 ML VIAL IV PRN (04:32)
[2019-01-16 06:00] LABS: Basophils % 0.5 % (0.0-0.8); Eosinophils # 0.2 10*3/uL (0.0-0.87); Eosinophils % 4.3 % (0.00-10.9); Hematocrit 35.5 VOL% (42.0-52.0); Hemoglobin 11.1 GM/DL (14.0-18.0); Immature Granulocytes % 0.5 %; Immature Granulocytes Absolute 0.03 #; Lymphocytes # 1.8 10*3/uL (1.4-4.0); Mean Corpuscular HGB Conc 31.3 GM/DL (32-36); Mean Corpuscular Volume 102.6 FL (87-102); Mean Platelet Volume 10.2 FL (9.6-12.0); Monocytes % 9.7 % (1.7-12.7); Platelet Count 193 T/CUMM (130-400); Red Blood Count 3.46 MC/CUMM (3.8-5.5); Red Cell Distribution Width 13.2 % (9.3-17.3); White Blood Count 5.6 T/CUMM (4-12)
[2019-01-16] MEDS: VANCOMYCIN INJ 1,250 MG in SODIUM CHLORIDE 0.9% 250 ML IV SCH (06:11)
[2019-01-16] MEDS: LEVOTHYROXINE 100 MCG TABLET PO SCH (06:11)
[2019-01-16 06:20] LABS: Calcium 8.4 MG/DL (8.5-10.1); Osmolality,Calculated 273.7 MOS/KG (273-304)
[2019-01-16 07:29] VITALS: BP 125/74
[2019-01-16] MEDS: PANTOPRAZOLE 40 MG TABLET PO SCH (08:45)
[2019-01-16] MEDS: LEVOFLOXACIN 500 MG TABLET PO SCH (08:45)
[2019-01-16] MEDS: TAMSULOSIN 0.4 MG CAPSULE PO SCH (08:45)
[2019-01-16] MEDS: VALSARTAN 80 MG TABLET PO SCH (08:45)
[2019-01-16] MEDS: FUROSEMIDE 40 MG TABLET PO SCH (08:46)
[2019-01-16] MEDS: POTASSIUM CHLORIDE 10 MEQ TABLET PO SCH (08:46)
[2019-01-16] MEDS: amLODIPine 10 MG TABLET PO SCH (08:46)
[2019-01-16] MEDS: METOPROLOL SUCCINATE XL 100 MG TABLET PO SCH (08:46)
[2019-01-16] MEDS: FINASTERIDE 5 MG TABLET PO SCH (08:46)
== END 2019-01-16 11:50 | disposition home or self-care (01) | DRG 660 ==
LOC: N.RAD 06:16 → N.SDSINP 06:19 → N.5E 13:22
PROVIDERS: ADMIT Radiology Diagnostic Radiology; ATTEND Radiology Diagnostic Radiology

== ENCOUNTER 2019-05-13 16:12 | Inpatient (IN) ==
[2019-05-13] MEDS ORDERED: KETOROLAC 30 MG/1 ML VIAL ONE (17:49)
[2019-05-13] MEDS ORDERED: ONDANSETRON 4 MG/2 ML VIAL ONE (17:49)
[2019-05-13] MEDS ORDERED: ONDANSETRON 4 MG/2 ML VIAL IV STA (17:50)
[2019-05-13] MEDS ORDERED: SODIUM CHLORIDE 0.9% 1,000 ML IV STA (17:50)
[2019-05-13] MEDS ORDERED: KETOROLAC 30 MG/1 ML VIAL IV STA (17:50)
[2019-05-13 17:52] LABS: Basophils % 0.3 % (0.0-0.8); Eosinophils # 0.1 10*3/uL (0.0-0.87); Hematocrit 42.4 VOL% (42.0-52.0); Hemoglobin 14.1 GM/DL (14.0-18.0); Immature Granulocytes % 0.7 %; Immature Granulocytes Absolute 0.08 #; Lymphocytes # 1.3 10*3/uL (1.4-4.0); Lymphocytes % 11.2 % (21.2-54.2); Mean Corpuscular HGB Conc 33.3 GM/DL (32-36); Mean Corpuscular Volume 97.2 FL (87-102); Mean Platelet Volume 9.9 FL (9.6-12.0); Monocytes % 6.9 % (1.7-12.7); Neutrophils % 79.9 % (38.7-73.9); Platelet Count 249 T/CUMM (130-400); Red Blood Count 4.36 MC/CUMM (3.8-5.5); Red Cell Distribution Width 14.3 % (9.3-17.3); White Blood Count 11.7 T/CUMM (4-12)
[2019-05-13 18:20] LABS: Albumin 4.1 G/DL (3.4-5.0); Bilirubin,Total 1.4 MG/DL (0.2-1.0); Calcium 9.2 MG/DL (8.5-10.1); Osmolality,Calculated 281.4 MOS/KG (273-304); Total Protein 8.2 G/DL (6.4-8.3)
[2019-05-13] MEDS ORDERED: HYDROmorphone 2 MG/1 ML VIAL IV STA (18:24)
[2019-05-13] MEDS ORDERED: ACETAMINOPHEN 325 MG TABLET PO PRN (18:53)
[2019-05-13] MEDS: PIPERACILLIN/TAZOBACTAM 3,375 MG in SODIUM CHLORIDE 0.9% 100 ML IV SCH (19:55)
[2019-05-13] MEDS ORDERED: INFLUENZA VIRUS VACCINE 0.5 ML SYRINGE IM ONE (20:48)
[2019-05-13] MEDS: SODIUM CHLOR 0.9% KCL 40 MEQ 40 MEQ/1,000 ML BAG IV SCH (20:57)
[2019-05-13] MEDS: FAMOTIDINE 20 MG/2 ML VIAL IV SCH (20:59)
[2019-05-13] MEDS: ONDANSETRON 4 MG/2 ML VIAL IV PRN (21:33)
[2019-05-13] MEDS: HYDROmorphone 2 MG/1 ML VIAL IV PRN (21:34)
[2019-05-13 23:09] LABS: Apearance,Urine CLEAR (Clear); Bilirubin,Urine Negative (Negative); Blood, Urine Negative (Negative); Glucose,Urine (UA) Negative (Negative); Hyaline Casts,Urine 3 /LPF (0-3); Ketones,Urine Negative (Negative); Mucus,Urine Occasional /LPF (Occasional); Nitrite,Urine Negative (Negative); Protein,Urine Negative; RBC,Urine 2 /HPF (0-4); Squamous Epithelial Cell,Urine Occasional /HPF (0-10); Urine Color Yellow (Yellow); Urine Specific Gravity 1.018 (1.001-1.035); Urine Urobilinogen < 2.0 EU/DL (0.2-1.0); WBC,Urine 32 /HPF (0-6)
[2019-05-14] MEDS: HYDROmorphone 2 MG/1 ML VIAL IV PRN ×5 (02:21→19:23)
[2019-05-14] MEDS: PIPERACILLIN/TAZOBACTAM 3,375 MG in SODIUM CHLORIDE 0.9% 100 ML IV SCH ×3 (03:19→19:26)
[2019-05-14] MEDS: ONDANSETRON 4 MG/2 ML VIAL IV PRN ×2 (06:14→19:20)
[2019-05-14 07:56] LABS: Basophils % 0.4 % (0.0-0.8); Eosinophils # 0.2 10*3/uL (0.0-0.87); Eosinophils % 2.7 % (0.00-10.9); Hematocrit 37.9 VOL% (42.0-52.0); Hemoglobin 12.2 GM/DL (14.0-18.0); Immature Granulocytes % 0.3 %; Immature Granulocytes Absolute 0.02 #; Lymphocytes # 1.2 10*3/uL (1.4-4.0); Mean Corpuscular HGB Conc 32.2 GM/DL (32-36); Mean Corpuscular Volume 100.8 FL (87-102); Mean Platelet Volume 9.9 FL (9.6-12.0); Monocytes % 8.4 % (1.7-12.7); Neutrophils % 72.2 % (38.7-73.9); Platelet Count 211 T/CUMM (130-400); Red Blood Count 3.76 MC/CUMM (3.8-5.5); Red Cell Distribution Width 14.7 % (9.3-17.3); White Blood Count 7.5 T/CUMM (4-12)
[2019-05-14] MEDS: FAMOTIDINE 20 MG/2 ML VIAL IV SCH ×2 (08:21→20:37)
[2019-05-14] MEDS: SODIUM CHLOR 0.9% KCL 40 MEQ 40 MEQ/1,000 ML BAG IV SCH ×3 (08:30→19:20)
[2019-05-15] MEDS: HYDROmorphone 2 MG/1 ML VIAL IV PRN ×4 (00:37→19:53)
[2019-05-15] MEDS: PIPERACILLIN/TAZOBACTAM 3,375 MG in SODIUM CHLORIDE 0.9% 100 ML IV SCH ×3 (03:16→20:35)
[2019-05-15] MEDS: ONDANSETRON 4 MG/2 ML VIAL IV PRN ×2 (04:56→11:11)
[2019-05-15] MEDS: SODIUM CHLOR 0.9% KCL 40 MEQ 40 MEQ/1,000 ML BAG IV SCH (05:04)
[2019-05-15] MEDS ORDERED: PROMETHAZINE 25 MG/1 ML VIAL IM ONE (06:11)
[2019-05-15] MEDS: FAMOTIDINE 20 MG/2 ML VIAL IV SCH ×2 (09:31→20:36)
[2019-05-15] MEDS: KETOROLAC 30 MG/1 ML VIAL IV PRN ×2 (09:39→18:42)
[2019-05-15] MEDS: MAGNESIUM SULF RIDER 2 GM in PREMIX 1 EACH IV PRN (18:23)
[2019-05-16] MEDS: HYDROmorphone 2 MG/1 ML VIAL IV PRN ×5 (00:48→23:52)
[2019-05-16] MEDS: SODIUM CHLOR 0.9% KCL 40 MEQ 40 MEQ/1,000 ML BAG IV SCH ×4 (00:51→22:42)
[2019-05-16] MEDS: PIPERACILLIN/TAZOBACTAM 3,375 MG in SODIUM CHLORIDE 0.9% 100 ML IV SCH ×3 (03:01→21:12)
[2019-05-16 05:09] LABS: Basophils % 0.3 % (0.0-0.8); Eosinophils # 0.4 10*3/uL (0.0-0.87); Eosinophils % 5.9 % (0.00-10.9); Hematocrit 35.8 VOL% (42.0-52.0); Hemoglobin 11.3 GM/DL (14.0-18.0); Immature Granulocytes % 0.5 %; Immature Granulocytes Absolute 0.03 #; Lymphocytes # 1.9 10*3/uL (1.4-4.0); Lymphocytes % 31.4 % (21.2-54.2); Mean Corpuscular HGB Conc 31.6 GM/DL (32-36); Mean Corpuscular Volume 103.2 FL (87-102); Mean Platelet Volume 9.7 FL (9.6-12.0); Monocytes % 11.4 % (1.7-12.7); Neutrophils % 50.5 % (38.7-73.9); Platelet Count 194 T/CUMM (130-400); Red Blood Count 3.47 MC/CUMM (3.8-5.5); Red Cell Distribution Width 14.5 % (9.3-17.3)
[2019-05-16 05:56] LABS: Bilirubin,Total 1.1 MG/DL (0.2-1.0); Calcium 8.4 MG/DL (8.5-10.1); Osmolality,Calculated 285.7 MOS/KG (273-304); Thyroid Stimulating Hormone 9.99 uIU/ml (0.358-3.74); Total Protein 6.5 G/DL (6.4-8.3)
[2019-05-16] MEDS: KETOROLAC 30 MG/1 ML VIAL IV PRN ×2 (07:56→16:34)
[2019-05-16] MEDS: FAMOTIDINE 20 MG/2 ML VIAL IV SCH ×2 (07:59→21:13)
[2019-05-16] MEDS ORDERED: ENOXAPARIN 40 MG/0.4 ML SYRINGE SUBCUT ONE (10:16)
[2019-05-16] MEDS: ONDANSETRON 4 MG/2 ML VIAL IV PRN (10:47)
[2019-05-16] MEDS: FUROSEMIDE 20 MG TABLET PO SCH (12:38)
[2019-05-17] MEDS: HYDROmorphone 2 MG/1 ML VIAL IV PRN ×4 (04:33→19:35)
[2019-05-17] MEDS: PIPERACILLIN/TAZOBACTAM 3,375 MG in SODIUM CHLORIDE 0.9% 100 ML IV SCH ×3 (04:34→20:56)
[2019-05-17 04:35] LABS: Basophils % 0.4 % (0.0-0.8); Eosinophils # 0.4 10*3/uL (0.0-0.87); Eosinophils % 6.4 % (0.00-10.9); Hematocrit 36.2 VOL% (42.0-52.0); Hemoglobin 11.4 GM/DL (14.0-18.0); Immature Granulocytes % 0.4 %; Immature Granulocytes Absolute 0.03 #; Lymphocytes # 1.7 10*3/uL (1.4-4.0); Lymphocytes % 25.6 % (21.2-54.2); Mean Corpuscular HGB Conc 31.5 GM/DL (32-36); Mean Corpuscular Volume 103.4 FL (87-102); Mean Platelet Volume 9.3 FL (9.6-12.0); Monocytes % 10.4 % (1.7-12.7); Neutrophils % 56.8 % (38.7-73.9); Platelet Count 202 T/CUMM (130-400); White Blood Count 6.8 T/CUMM (4-12)
[2019-05-17 04:58] LABS: Bilirubin,Total 1.2 MG/DL (0.2-1.0); Calcium 8.6 MG/DL (8.5-10.1); Osmolality,Calculated 285.7 MOS/KG (273-304); Total Protein 6.7 G/DL (6.4-8.3)
[2019-05-17] MEDS: SODIUM CHLOR 0.9% KCL 40 MEQ 40 MEQ/1,000 ML BAG IV SCH ×2 (05:38→17:13)
[2019-05-17] MEDS: LEVOTHYROXINE 100 MCG TABLET PO SCH (06:14)
[2019-05-17] MEDS: FAMOTIDINE 20 MG/2 ML VIAL IV SCH ×2 (10:17→20:56)
[2019-05-17] MEDS: TAMSULOSIN 0.4 MG CAPSULE PO SCH (10:18)
[2019-05-17] MEDS: amLODIPine 5 MG TABLET PO SCH (10:18)
[2019-05-17] MEDS: FUROSEMIDE 20 MG TABLET PO SCH (12:55)
[2019-05-18] MEDS: HYDROmorphone 2 MG/1 ML VIAL IV PRN ×7 (01:32→21:38)
[2019-05-18] MEDS: SODIUM CHLOR 0.9% KCL 40 MEQ 40 MEQ/1,000 ML BAG IV SCH ×4 (01:36→21:37)
[2019-05-18] MEDS: PIPERACILLIN/TAZOBACTAM 3,375 MG in SODIUM CHLORIDE 0.9% 100 ML IV SCH ×3 (04:36→21:37)
[2019-05-18] MEDS: LEVOTHYROXINE 100 MCG TABLET PO SCH (06:43)
[2019-05-18] MEDS ORDERED: LEVOFLOXACIN INJ 500 MG in PREMIX 1 EACH IV ONE (07:27)
[2019-05-18] MEDS: TAMSULOSIN 0.4 MG CAPSULE PO SCH ×2 (09:21→09:37)
[2019-05-18] MEDS: amLODIPine 5 MG TABLET PO SCH (09:21)
[2019-05-18] MEDS: FAMOTIDINE 20 MG/2 ML VIAL IV SCH ×2 (09:21→21:37)
[2019-05-18] MEDS: FUROSEMIDE 20 MG TABLET PO SCH (12:11)
[2019-05-18] MEDS ORDERED: BUPIVACAINE 0.5% 50 ML VIAL ONE (12:25)
[2019-05-18 14:05] LABS: Apearance,Urine CLEAR (Clear); Bilirubin,Urine Negative (Negative); Blood, Urine Negative (Negative); Glucose,Urine (UA) Negative (Negative); Ketones,Urine 80 mg/dL (Negative); Mucus,Urine Occasional /LPF (Occasional); Nitrite,Urine Negative (Negative); Protein,Urine Negative; Squamous Epithelial Cell,Urine Occasional /HPF (0-10); Urine Color Yellow (Yellow); Urine Specific Gravity 1.016 (1.001-1.035); WBC,Urine 4 /HPF (0-6)
[2019-05-18] MEDS ORDERED: SUGAMMADEX 200 MG/2 ML VIAL IV ONE (15:18)
[2019-05-18] MEDS ORDERED: ONDANSETRON 4 MG/2 ML VIAL ONE ×2 (15:45→16:43)
[2019-05-18] MEDS ORDERED: HYDROmorphone 2 MG/1 ML VIAL ONE (15:45)
[2019-05-18] MEDS ORDERED: ONDANSETRON 4 MG/2 ML VIAL IV PRN (15:50)
[2019-05-18] MEDS: DEXTROSE 5% LACTATED RINGERS 1,000 ML IV SCH (16:26)
[2019-05-18] MEDS ORDERED: fentaNYL 100 MCG/2 ML VIAL ONE (16:42)
[2019-05-18] MEDS ORDERED: SEVOFLURANE 1 UNIT/15 MINUTE INH ONE (16:42)
[2019-05-18] MEDS ORDERED: PROPOFOL 200 MG/20 ML VIAL IV ONE (16:42)
[2019-05-18] MEDS ORDERED: LIDOCAINE 2% 5 ML VIAL ONE (16:42)
[2019-05-18] MEDS ORDERED: PHENYLEPHRINE DRIP 20 MG/250 ML PREMIX IV ONE (16:42)
[2019-05-18] MEDS ORDERED: SUCCINYLCHOLINE 200 MG/10 ML VIAL ONE (16:43)
[2019-05-18] MEDS ORDERED: DEXAMETHASONE 4 MG/1 ML VIAL ONE (16:43)
[2019-05-18] MEDS ORDERED: LACTATED RINGERS 1,000 ML IV ONE (16:43)
[2019-05-18] MEDS ORDERED: ROCURONIUM 100 MG/10 ML VIAL IV ONE (16:43)
[2019-05-18 17:04] LABS: Calcium 8.6 MG/DL (8.5-10.1); Osmolality,Calculated 279.5 MOS/KG (273-304)
[2019-05-18] MEDS: ONDANSETRON 4 MG/2 ML VIAL IV PRN (17:09)
[2019-05-19] MEDS: DEXTROSE 5% LACTATED RINGERS 1,000 ML IV SCH ×3 (01:12→09:27)
[2019-05-19] MEDS: HYDROmorphone 2 MG/1 ML VIAL IV PRN ×7 (01:13→20:47)
[2019-05-19 04:05] LABS: Basophils % 0.3 % (0.0-0.8); Eosinophils % 0.1 % (0.00-10.9); Hematocrit 39.2 VOL% (42.0-52.0); Hemoglobin 12.7 GM/DL (14.0-18.0); Immature Granulocytes % 1.1 %; Immature Granulocytes Absolute 0.11 #; Lymphocytes # 1.3 10*3/uL (1.4-4.0); Lymphocytes % 12.9 % (21.2-54.2); Mean Corpuscular HGB Conc 32.4 GM/DL (32-36); Mean Platelet Volume 9.2 FL (9.6-12.0); Monocytes % 9.8 % (1.7-12.7); Neutrophils % 75.8 % (38.7-73.9); Platelet Count 256 T/CUMM (130-400); Red Blood Count 3.92 MC/CUMM (3.8-5.5); Red Cell Distribution Width 13.9 % (9.3-17.3); White Blood Count 9.8 T/CUMM (4-12)
[2019-05-19] MEDS: SODIUM CHLOR 0.9% KCL 40 MEQ 40 MEQ/1,000 ML BAG IV SCH (04:19)
[2019-05-19 04:22] LABS: Bilirubin,Total 0.9 MG/DL (0.2-1.0); Calcium 8.3 MG/DL (8.5-10.1); Osmolality,Calculated 278.4 MOS/KG (273-304); Total Protein 6.4 G/DL (6.4-8.3)
[2019-05-19] MEDS: ONDANSETRON 4 MG/2 ML VIAL IV PRN ×4 (04:32→20:52)
[2019-05-19] MEDS: LEVOTHYROXINE 100 MCG TABLET PO SCH (06:33)
[2019-05-19] MEDS: PIPERACILLIN/TAZOBACTAM 3,375 MG in SODIUM CHLORIDE 0.9% 100 ML IV SCH ×3 (06:36→20:57)
[2019-05-19] MEDS: TAMSULOSIN 0.4 MG CAPSULE PO SCH (08:20)
[2019-05-19] MEDS: amLODIPine 5 MG TABLET PO SCH (08:20)
[2019-05-19] MEDS: FAMOTIDINE 20 MG/2 ML VIAL IV SCH ×2 (08:21→20:53)
[2019-05-20] MEDS: HYDROmorphone 2 MG/1 ML VIAL IV PRN ×6 (03:26→22:01)
[2019-05-20] MEDS: DEXTROSE 5% LACTATED RINGERS 1,000 ML IV SCH ×6 (04:15→23:11)
[2019-05-20] MEDS: PIPERACILLIN/TAZOBACTAM 3,375 MG in SODIUM CHLORIDE 0.9% 100 ML IV SCH ×3 (04:19→21:56)
[2019-05-20 04:37] LABS: Basophils # 0.1 10*3/uL (0.0-0.2); Basophils % 0.7 % (0.0-0.8); Eosinophils # 0.4 10*3/uL (0.0-0.87); Eosinophils % 4.3 % (0.00-10.9); Hematocrit 38.1 VOL% (42.0-52.0); Hemoglobin 12.1 GM/DL (14.0-18.0); Lymphocytes # 1.5 10*3/uL (1.4-4.0); Lymphocytes % 15.3 % (21.2-54.2); Mean Corpuscular HGB Conc 31.8 GM/DL (32-36); Mean Corpuscular Volume 101.9 FL (87-102); Mean Platelet Volume 9.8 FL (9.6-12.0); Neutrophils % 67.7 % (38.7-73.9); Platelet Count 265 T/CUMM (130-400); Red Blood Count 3.74 MC/CUMM (3.8-5.5); Red Cell Distribution Width 14.3 % (9.3-17.3); White Blood Count 9.8 T/CUMM (4-12)
[2019-05-20] MEDS: LEVOTHYROXINE 100 MCG TABLET PO SCH (06:10)
[2019-05-20] MEDS: ONDANSETRON 4 MG/2 ML VIAL IV PRN (06:20)
[2019-05-20] MEDS: amLODIPine 5 MG TABLET PO SCH (09:20)
[2019-05-20] MEDS: FAMOTIDINE 20 MG/2 ML VIAL IV SCH ×2 (09:20→21:56)
[2019-05-20] MEDS: TAMSULOSIN 0.4 MG CAPSULE PO SCH (09:20)
[2019-05-21] MEDS: HYDROmorphone 2 MG/1 ML VIAL IV PRN ×5 (02:13→20:13)
[2019-05-21] MEDS: LEVOTHYROXINE 100 MCG TABLET PO SCH (05:53)
[2019-05-21] MEDS: PIPERACILLIN/TAZOBACTAM 3,375 MG in SODIUM CHLORIDE 0.9% 100 ML IV SCH (05:53)
[2019-05-21] MEDS: DEXTROSE 5% LACTATED RINGERS 1,000 ML IV SCH ×4 (07:30→23:30)
[2019-05-21] MEDS: amLODIPine 5 MG TABLET PO SCH (09:26)
[2019-05-21] MEDS: TAMSULOSIN 0.4 MG CAPSULE PO SCH (09:26)
[2019-05-21] MEDS: FAMOTIDINE 20 MG/2 ML VIAL IV SCH ×2 (09:27→20:07)
[2019-05-22] MEDS: HYDROmorphone 2 MG/1 ML VIAL IV PRN ×7 (00:15→23:57)
[2019-05-22] MEDS: LEVOTHYROXINE 100 MCG TABLET PO SCH (06:03)
[2019-05-22] MEDS: DEXTROSE 5% LACTATED RINGERS 1,000 ML IV SCH ×4 (06:04→16:26)
[2019-05-22] MEDS: TAMSULOSIN 0.4 MG CAPSULE PO SCH (09:00)
[2019-05-22] MEDS: FAMOTIDINE 20 MG/2 ML VIAL IV SCH ×2 (09:00→20:40)
[2019-05-22] MEDS: amLODIPine 5 MG TABLET PO SCH (09:00)
[2019-05-22 09:27] LABS: Basophils % 0.5 % (0.0-0.8); Eosinophils # 0.5 10*3/uL (0.0-0.87); Eosinophils % 5.3 % (0.00-10.9); Immature Granulocytes Absolute 0.09 #; Lymphocytes # 1.5 10*3/uL (1.4-4.0); Lymphocytes % 16.8 % (21.2-54.2); Mean Corpuscular HGB Conc 32.4 GM/DL (32-36); Mean Platelet Volume 9.2 FL (9.6-12.0); Monocytes % 10.7 % (1.7-12.7); Neutrophils % 65.7 % (38.7-73.9); Platelet Count 282 T/CUMM (130-400); White Blood Count 8.8 T/CUMM (4-12)
[2019-05-22 09:47] LABS: Osmolality,Calculated 275.5 MOS/KG (273-304)
[2019-05-22] MEDS ORDERED: POTASSIUM CHLORIDE 20 MEQ/15 ML UDCUP PER TUBE PRN (10:19)
[2019-05-22] MEDS: ONDANSETRON 4 MG/2 ML VIAL IV PRN ×3 (10:38→22:55)
[2019-05-22] MEDS: POTASSIUM CHLORIDE 20 MEQ TABLET PO PRN ×2 (11:10→14:57)
[2019-05-22] MEDS ORDERED: PROMETHAZINE 25 MG/1 ML VIAL IM ONE ×2 (17:41→23:30)
[2019-05-22] MEDS ORDERED: POTASSIUM CHLORIDE RIDER 10 MEQ in PREMIX 1 EACH IV PRN (19:32)
[2019-05-22] MEDS: POTASSIUM CHLORIDE RIDER 10 MEQ in PREMIX 1 EACH IV PRN ×3 (20:50→23:27)
[2019-05-22] MEDS ORDERED: PROMETHAZINE INJ 25 MG in SODIUM CHLORIDE 0.9% 50 ML IV ONE (23:31)
[2019-05-23] MEDS: DEXTROSE 5% LACTATED RINGERS 1,000 ML IV SCH ×3 (04:37→17:00)
[2019-05-23] MEDS: HYDROmorphone 2 MG/1 ML VIAL IV PRN ×4 (04:37→20:12)
[2019-05-23 05:24] LABS: Calcium 9.3 MG/DL (8.5-10.1); Osmolality,Calculated 286.7 MOS/KG (273-304)
[2019-05-23] MEDS: LEVOTHYROXINE 100 MCG TABLET PO SCH (05:39)
[2019-05-23] MEDS: POTASSIUM CHLORIDE RIDER 10 MEQ in PREMIX 1 EACH IV PRN (06:30)
[2019-05-23] MEDS: amLODIPine 5 MG TABLET PO SCH (08:48)
[2019-05-23] MEDS: TAMSULOSIN 0.4 MG CAPSULE PO SCH (08:48)
[2019-05-23] MEDS: FAMOTIDINE 20 MG/2 ML VIAL IV SCH ×2 (08:49→20:22)
[2019-05-23] MEDS: ONDANSETRON 4 MG/2 ML VIAL IV PRN ×3 (09:30→20:14)
[2019-05-24] MEDS: HYDROmorphone 2 MG/1 ML VIAL IV PRN ×6 (00:56→23:50)
[2019-05-24] MEDS: DEXTROSE 5% LACTATED RINGERS 1,000 ML IV SCH ×3 (00:58→17:28)
[2019-05-24 05:08] LABS: Basophils % 0.4 % (0.0-0.8); Eosinophils # 0.6 10*3/uL (0.0-0.87); Eosinophils % 6.9 % (0.00-10.9); Hemoglobin 10.6 GM/DL (14.0-18.0); Immature Granulocytes % 0.7 %; Immature Granulocytes Absolute 0.06 #; Lymphocytes # 1.7 10*3/uL (1.4-4.0); Lymphocytes % 19.2 % (21.2-54.2); Mean Corpuscular HGB Conc 31.2 GM/DL (32-36); Mean Corpuscular Volume 101.2 FL (87-102); Mean Platelet Volume 9.8 FL (9.6-12.0); Monocytes % 9.5 % (1.7-12.7); Neutrophils % 63.3 % (38.7-73.9); Platelet Count 317 T/CUMM (130-400); Red Blood Count 3.36 MC/CUMM (3.8-5.5)
[2019-05-24 05:23] LABS: Calcium 9.4 MG/DL (8.5-10.1); Osmolality,Calculated 289.4 MOS/KG (273-304)
[2019-05-24 05:31] LABS: Albumin 2.5 G/DL (3.4-5.0); Bilirubin,Total 0.9 MG/DL (0.2-1.0); Calcium 8.9 MG/DL (8.5-10.1); Total Protein 6.2 G/DL (6.4-8.3)
[2019-05-24] MEDS: ONDANSETRON 4 MG/2 ML VIAL IV PRN ×3 (05:34→19:28)
[2019-05-24] MEDS: LEVOTHYROXINE 100 MCG TABLET PO SCH (05:49)
[2019-05-24] MEDS: TAMSULOSIN 0.4 MG CAPSULE PO SCH (08:56)
[2019-05-24] MEDS: amLODIPine 5 MG TABLET PO SCH (08:56)
[2019-05-24] MEDS: FAMOTIDINE 20 MG/2 ML VIAL IV SCH ×2 (08:56→20:45)
[2019-05-25] MEDS: DEXTROSE 5% LACTATED RINGERS 1,000 ML IV SCH ×5 (00:53→19:14)
[2019-05-25] MEDS: ONDANSETRON 4 MG/2 ML VIAL IV PRN ×2 (03:33→19:56)
[2019-05-25] MEDS: HYDROmorphone 2 MG/1 ML VIAL IV PRN ×5 (03:34→22:23)
[2019-05-25 04:58] LABS: Basophils % 0.5 % (0.0-0.8); Eosinophils # 0.5 10*3/uL (0.0-0.87); Eosinophils % 6.5 % (0.00-10.9); Hematocrit 33.8 VOL% (42.0-52.0); Hemoglobin 10.6 GM/DL (14.0-18.0); Immature Granulocytes % 0.6 %; Immature Granulocytes Absolute 0.05 #; Lymphocytes # 1.6 10*3/uL (1.4-4.0); Mean Corpuscular HGB Conc 31.4 GM/DL (32-36); Mean Corpuscular Volume 100.9 FL (87-102); Mean Platelet Volume 9.6 FL (9.6-12.0); Neutrophils % 63.4 % (38.7-73.9); Platelet Count 303 T/CUMM (130-400); Red Blood Count 3.35 MC/CUMM (3.8-5.5); Red Cell Distribution Width 13.9 % (9.3-17.3); White Blood Count 8.3 T/CUMM (4-12)
[2019-05-25 05:23] LABS: Calcium 8.8 MG/DL (8.5-10.1); Osmolality,Calculated 280.1 MOS/KG (273-304)
[2019-05-25] MEDS: POTASSIUM CHLORIDE RIDER 10 MEQ in PREMIX 1 EACH IV PRN ×5 (05:31→23:08)
[2019-05-25] MEDS: LEVOTHYROXINE 100 MCG TABLET PO SCH (06:16)
[2019-05-25] MEDS: TAMSULOSIN 0.4 MG CAPSULE PO SCH (08:53)
[2019-05-25] MEDS: amLODIPine 5 MG TABLET PO SCH (08:53)
[2019-05-25] MEDS: FAMOTIDINE 20 MG/2 ML VIAL IV SCH ×2 (08:54→20:16)
[2019-05-26] MEDS: HYDROmorphone 2 MG/1 ML VIAL IV PRN ×5 (02:05→19:31)
[2019-05-26] MEDS: ONDANSETRON 4 MG/2 ML VIAL IV PRN ×4 (04:35→19:31)
[2019-05-26 05:40] LABS: Basophils % 0.3 % (0.0-0.8); Eosinophils # 0.4 10*3/uL (0.0-0.87); Eosinophils % 3.6 % (0.00-10.9); Hemoglobin 12.2 GM/DL (14.0-18.0); Immature Granulocytes % 0.4 %; Immature Granulocytes Absolute 0.04 #; Lymphocytes % 9.8 % (21.2-54.2); Mean Corpuscular HGB Conc 31.3 GM/DL (32-36); Mean Corpuscular Volume 101.6 FL (87-102); Mean Platelet Volume 9.8 FL (9.6-12.0); Monocytes % 4.8 % (1.7-12.7); Neutrophils % 81.1 % (38.7-73.9); Platelet Count 352 T/CUMM (130-400); Red Blood Count 3.84 MC/CUMM (3.8-5.5); Red Cell Distribution Width 13.8 % (9.3-17.3); White Blood Count 10.5 T/CUMM (4-12)
[2019-05-26] MEDS: LEVOTHYROXINE 100 MCG TABLET PO SCH (05:47)
[2019-05-26 06:09] LABS: Eosinophils 5 % (0-10); Lymphocytes 10 % (20-55); Macrocytosis Slight; Platelet Estimate Normal; Segmented Neutrophils 81 % (50-85); Total Cells Counted 100
[2019-05-26 06:10] LABS: Hypochromasia 1+; Polychromasia Slight
[2019-05-26] MEDS: DEXTROSE 5% LACTATED RINGERS 1,000 ML IV SCH ×3 (06:29→18:05)
[2019-05-26] MEDS: TAMSULOSIN 0.4 MG CAPSULE PO SCH ×2 (08:32→18:00)
[2019-05-26] MEDS: amLODIPine 5 MG TABLET PO SCH ×2 (08:32→18:00)
[2019-05-26] MEDS: FAMOTIDINE 20 MG/2 ML VIAL IV SCH ×2 (08:33→21:46)
[2019-05-26] MEDS ORDERED: DEXTROSE 50% 25 GM/50 ML VIAL IV PRN (15:32)
[2019-05-26] MEDS ORDERED: GLUCAGON 1 MG VIAL IM PRN (15:32)
[2019-05-26] MEDS ORDERED: MULTIVITAMIN INJ 10 ML, TRACE ELEMENTS (5) 1 ML in AMINO ACIDS/DEXT/LYTES 5-15% 2,000 ML IV SCH (17:00)
[2019-05-26] MEDS ORDERED: DEXTROSE 10% 1,000 ML IV PRN (17:00)
[2019-05-26] MEDS: FAT EMULSION 20% 250 ML IV SCH (18:00)
[2019-05-26] MEDS: INSULIN REGULAR 100 UNIT/ML SUBCUT SCH (18:42)
[2019-05-27] MEDS: INSULIN REGULAR 100 UNIT/ML SUBCUT SCH ×4 (00:26→18:28)
[2019-05-27] MEDS: HYDROmorphone 2 MG/1 ML VIAL IV PRN ×6 (01:06→22:30)
[2019-05-27] MEDS: DEXTROSE 5% LACTATED RINGERS 1,000 ML IV SCH ×3 (02:05→18:26)
[2019-05-27 05:26] LABS: Prealbumin 9.9 MG/DL (20-40)
[2019-05-27] MEDS: LEVOTHYROXINE 100 MCG TABLET PO SCH (06:15)
[2019-05-27] MEDS: ONDANSETRON 4 MG/2 ML VIAL IV PRN ×2 (06:22→17:47)
[2019-05-27] MEDS: FAMOTIDINE 20 MG/2 ML VIAL IV SCH ×2 (08:57→20:07)
[2019-05-27] MEDS: TAMSULOSIN 0.4 MG CAPSULE PO SCH (08:58)
[2019-05-27] MEDS: amLODIPine 5 MG TABLET PO SCH (08:58)
[2019-05-27 09:58] LABS: Calcium 8.6 MG/DL (8.5-10.1); Osmolality,Calculated 280.3 MOS/KG (273-304)
[2019-05-27] MEDS: POTASSIUM CHLORIDE RIDER 20 MEQ in PREMIX 1 EACH IV PRN (13:23)
[2019-05-27] MEDS: FAT EMULSION 20% 250 ML IV SCH (13:23)
[2019-05-27] MEDS: POTASSIUM CHLORIDE RIDER 10 MEQ in PREMIX 1 EACH IV PRN (15:47)
[2019-05-27] MEDS: MULTIVITAMIN INJ 10 ML, TRACE ELEMENTS (5) 1 ML in AMINO ACIDS/DEXT/LYTES 5-15% 2,000 ML IV SCH (17:30)
[2019-05-28] MEDS: INSULIN REGULAR 100 UNIT/ML SUBCUT SCH ×4 (00:44→17:43)
[2019-05-28] MEDS: HYDROmorphone 2 MG/1 ML VIAL IV PRN ×6 (01:57→20:00)
[2019-05-28] MEDS: DEXTROSE 5% LACTATED RINGERS 1,000 ML IV SCH ×3 (02:03→21:57)
[2019-05-28 05:09] LABS: Calcium 8.4 MG/DL (8.5-10.1); Osmolality,Calculated 275.5 MOS/KG (273-304); Prealbumin 10.6 MG/DL (20-40)
[2019-05-28] MEDS: LEVOTHYROXINE 100 MCG TABLET PO SCH (05:49)
[2019-05-28] MEDS: KETOROLAC 15 MG/1 ML VIAL IV SCH ×3 (08:11→19:59)
[2019-05-28] MEDS: amLODIPine 5 MG TABLET PO SCH (08:39)
[2019-05-28] MEDS: FAMOTIDINE 20 MG/2 ML VIAL IV SCH ×2 (08:39→20:00)
[2019-05-28] MEDS: TAMSULOSIN 0.4 MG CAPSULE PO SCH (08:40)
[2019-05-28] MEDS: MAGNESIUM SULF RIDER 2 GM in PREMIX 1 EACH IV PRN (12:25)
[2019-05-28] MEDS: FAT EMULSION 20% 250 ML IV SCH (13:45)
[2019-05-28] MEDS: POTASSIUM CHLORIDE RIDER 20 MEQ in PREMIX 1 EACH IV PRN (16:26)
[2019-05-28] MEDS: MULTIVITAMIN INJ 10 ML, TRACE ELEMENTS (5) 1 ML in AMINO ACIDS/DEXT/LYTES 5-15% 2,000 ML IV SCH (16:42)
[2019-05-28] MEDS: ONDANSETRON 4 MG/2 ML VIAL IV PRN (20:05)
[2019-05-28] MEDS: POTASSIUM CHLORIDE RIDER 10 MEQ in PREMIX 1 EACH IV PRN (20:10)
[2019-05-29] MEDS: KETOROLAC 15 MG/1 ML VIAL IV SCH ×4 (01:31→20:13)
[2019-05-29] MEDS: HYDROmorphone 2 MG/1 ML VIAL IV PRN ×5 (01:32→20:15)
[2019-05-29] MEDS: INSULIN REGULAR 100 UNIT/ML SUBCUT SCH ×4 (01:32→19:10)
[2019-05-29] MEDS: ONDANSETRON 4 MG/2 ML VIAL IV PRN ×4 (01:40→18:56)
[2019-05-29] MEDS: DEXTROSE 5% LACTATED RINGERS 1,000 ML IV SCH ×3 (05:52→18:55)
[2019-05-29] MEDS: ENOXAPARIN 40 MG/0.4 ML SYRINGE SUBCUT SCH (06:20)
[2019-05-29 06:24] LABS: Calcium 8.4 MG/DL (8.5-10.1); Osmolality,Calculated 275.7 MOS/KG (273-304)
[2019-05-29] MEDS: LEVOTHYROXINE 100 MCG TABLET PO SCH (07:00)
[2019-05-29] MEDS: FAMOTIDINE 20 MG/2 ML VIAL IV SCH ×2 (09:20→20:11)
[2019-05-29] MEDS: TAMSULOSIN 0.4 MG CAPSULE PO SCH (09:31)
[2019-05-29] MEDS: amLODIPine 5 MG TABLET PO SCH (09:31)
[2019-05-29] MEDS: FAT EMULSION 20% 250 ML IV SCH (14:28)
[2019-05-29] MEDS: MULTIVITAMIN INJ 10 ML, TRACE ELEMENTS (5) 1 ML in AMINO ACIDS/DEXT/LYTES 5-15% 2,000 ML IV SCH (16:27)
[2019-05-30] MEDS: DEXTROSE 5% LACTATED RINGERS 1,000 ML IV SCH ×2 (00:32→10:31)
[2019-05-30] MEDS: HYDROmorphone 2 MG/1 ML VIAL IV PRN ×7 (00:32→20:13)
[2019-05-30] MEDS: INSULIN REGULAR 100 UNIT/ML SUBCUT SCH ×4 (00:32→19:00)
[2019-05-30] MEDS: KETOROLAC 15 MG/1 ML VIAL IV SCH ×4 (02:23→20:13)
[2019-05-30] MEDS: ONDANSETRON 4 MG/2 ML VIAL IV PRN ×3 (02:23→20:13)
[2019-05-30 05:04] LABS: Basophils # 0.1 10*3/uL (0.0-0.2); Basophils % 0.9 % (0.0-0.8); Eosinophils # 0.5 10*3/uL (0.0-0.87); Eosinophils % 5.7 % (0.00-10.9); Hematocrit 36.5 VOL% (42.0-52.0); Hemoglobin 11.3 GM/DL (14.0-18.0); Immature Granulocytes % 2.2 %; Lymphocytes # 1.9 10*3/uL (1.4-4.0); Lymphocytes % 21.1 % (21.2-54.2); Mean Corpuscular Volume 99.5 FL (87-102); Mean Platelet Volume 9.8 FL (9.6-12.0); Monocytes % 12.3 % (1.7-12.7); Neutrophils % 57.8 % (38.7-73.9); Platelet Count 307 T/CUMM (130-400); Red Blood Count 3.67 MC/CUMM (3.8-5.5); Red Cell Distribution Width 13.3 % (9.3-17.3); White Blood Count 9.2 T/CUMM (4-12)
[2019-05-30] MEDS: LEVOTHYROXINE 100 MCG TABLET PO SCH (06:34)
[2019-05-30] MEDS: ENOXAPARIN 40 MG/0.4 ML SYRINGE SUBCUT SCH (06:34)
[2019-05-30] MEDS: FAMOTIDINE 20 MG/2 ML VIAL IV SCH ×2 (09:09→20:14)
[2019-05-30] MEDS: TAMSULOSIN 0.4 MG CAPSULE PO SCH (09:13)
[2019-05-30] MEDS: amLODIPine 5 MG TABLET PO SCH (09:13)
[2019-05-30] MEDS: FAT EMULSION 20% 250 ML IV SCH (16:29)
[2019-05-30] MEDS: MULTIVITAMIN INJ 10 ML, TRACE ELEMENTS (5) 1 ML in AMINO ACIDS/DEXT/LYTES 5-15% 2,000 ML IV SCH (16:29)
[2019-05-31] MEDS: KETOROLAC 15 MG/1 ML VIAL IV SCH ×4 (00:44→20:23)
[2019-05-31] MEDS: INSULIN REGULAR 100 UNIT/ML SUBCUT SCH ×4 (00:45→18:23)
[2019-05-31] MEDS: HYDROmorphone 2 MG/1 ML VIAL IV PRN ×5 (02:18→20:24)
[2019-05-31] MEDS: ENOXAPARIN 40 MG/0.4 ML SYRINGE SUBCUT SCH (06:42)
[2019-05-31] MEDS: LEVOTHYROXINE 100 MCG TABLET PO SCH (06:42)
[2019-05-31 06:51] LABS: Calcium 9.1 MG/DL (8.5-10.1); Osmolality,Calculated 279.5 MOS/KG (273-304)
[2019-05-31] MEDS: TAMSULOSIN 0.4 MG CAPSULE PO SCH (08:57)
[2019-05-31] MEDS: FAMOTIDINE 20 MG/2 ML VIAL IV SCH ×2 (08:57→20:23)
[2019-05-31] MEDS: amLODIPine 5 MG TABLET PO SCH (08:57)
[2019-05-31] MEDS: ONDANSETRON 4 MG/2 ML VIAL IV PRN ×2 (09:31→13:50)
[2019-05-31] MEDS: MULTIVITAMIN INJ 10 ML, TRACE ELEMENTS (5) 1 ML in AMINO ACIDS/DEXT/LYTES 5-15% 2,000 ML IV SCH (15:15)
[2019-05-31] MEDS: FAT EMULSION 20% 250 ML IV SCH (15:16)
[2019-06-01] MEDS: HYDROmorphone 2 MG/1 ML VIAL IV PRN ×5 (00:51→23:36)
[2019-06-01] MEDS: INSULIN REGULAR 100 UNIT/ML SUBCUT SCH ×5 (00:51→23:38)
[2019-06-01] MEDS: KETOROLAC 15 MG/1 ML VIAL IV SCH ×4 (00:52→20:16)
[2019-06-01 05:55] LABS: Basophils # 0.1 10*3/uL (0.0-0.2); Eosinophils # 0.7 10*3/uL (0.0-0.87); Eosinophils % 6.3 % (0.00-10.9); Hematocrit 37.7 VOL% (42.0-52.0); Hemoglobin 11.8 GM/DL (14.0-18.0); Immature Granulocytes Absolute 0.43 #; Lymphocytes # 2.5 10*3/uL (1.4-4.0); Lymphocytes % 22.8 % (21.2-54.2); Mean Corpuscular HGB Conc 31.3 GM/DL (32-36); Mean Platelet Volume 10.1 FL (9.6-12.0); Monocytes % 12.5 % (1.7-12.7); Neutrophils % 53.4 % (38.7-73.9); Platelet Count 377 T/CUMM (130-400); Red Blood Count 3.81 MC/CUMM (3.8-5.5); Red Cell Distribution Width 13.4 % (9.3-17.3); White Blood Count 10.8 T/CUMM (4-12)
[2019-06-01 06:08] LABS: Calcium 9.6 MG/DL (8.5-10.1); Osmolality,Calculated 287.3 MOS/KG (273-304)
[2019-06-01] MEDS: LEVOTHYROXINE 100 MCG TABLET PO SCH (06:42)
[2019-06-01] MEDS: ENOXAPARIN 40 MG/0.4 ML SYRINGE SUBCUT SCH (06:42)
[2019-06-01] MEDS: TAMSULOSIN 0.4 MG CAPSULE PO SCH (08:43)
[2019-06-01] MEDS: amLODIPine 5 MG TABLET PO SCH (08:43)
[2019-06-01] MEDS: FAMOTIDINE 20 MG/2 ML VIAL IV SCH ×2 (08:44→20:16)
[2019-06-01] MEDS: FAT EMULSION 20% 250 ML IV SCH (14:00)
[2019-06-01] MEDS: ONDANSETRON 4 MG/2 ML VIAL IV PRN (14:07)
[2019-06-01] MEDS: MULTIVITAMIN INJ 10 ML, TRACE ELEMENTS (5) 1 ML in AMINO ACIDS/DEXT/LYTES 5-15% 2,000 ML IV SCH (14:41)
[2019-06-02] MEDS: KETOROLAC 15 MG/1 ML VIAL IV SCH (01:05)
[2019-06-02] MEDS: HYDROmorphone 2 MG/1 ML VIAL IV PRN ×2 (04:20→08:46)
[2019-06-02] MEDS: INSULIN REGULAR 100 UNIT/ML SUBCUT SCH ×3 (06:12→17:47)
[2019-06-02] MEDS: ENOXAPARIN 40 MG/0.4 ML SYRINGE SUBCUT SCH (06:49)
[2019-06-02] MEDS: LEVOTHYROXINE 100 MCG TABLET PO SCH (06:49)
[2019-06-02] MEDS: FAMOTIDINE 20 MG/2 ML VIAL IV SCH ×2 (08:47→20:42)
[2019-06-02] MEDS: amLODIPine 5 MG TABLET PO SCH (08:47)
[2019-06-02] MEDS: TAMSULOSIN 0.4 MG CAPSULE PO SCH (08:47)
[2019-06-02] MEDS: ONDANSETRON 4 MG/2 ML VIAL IV PRN (09:13)
[2019-06-02] MEDS: MULTIVITAMIN INJ 10 ML, TRACE ELEMENTS (5) 1 ML in AMINO ACIDS/DEXT/LYTES 5-15% 2,000 ML IV SCH (12:52)
[2019-06-02] MEDS: FAT EMULSION 20% 250 ML IV SCH (13:36)
[2019-06-03] MEDS: INSULIN REGULAR 100 UNIT/ML SUBCUT SCH ×4 (00:15→17:30)
[2019-06-03] MEDS: ENOXAPARIN 40 MG/0.4 ML SYRINGE SUBCUT SCH (06:15)
[2019-06-03] MEDS: LEVOTHYROXINE 100 MCG TABLET PO SCH (06:15)
[2019-06-03] MEDS: TAMSULOSIN 0.4 MG CAPSULE PO SCH (09:16)
[2019-06-03] MEDS: FAMOTIDINE 20 MG/2 ML VIAL IV SCH ×2 (09:16→20:38)
[2019-06-03] MEDS: amLODIPine 5 MG TABLET PO SCH (09:16)
[2019-06-03] MEDS: MULTIVITAMIN INJ 10 ML, TRACE ELEMENTS (5) 1 ML in AMINO ACIDS/DEXT/LYTES 5-15% 2,000 ML IV SCH (12:07)
[2019-06-03] MEDS: FAT EMULSION 20% 250 ML IV SCH (14:39)
[2019-06-03] MEDS: ONDANSETRON 4 MG/2 ML VIAL IV PRN ×2 (17:25→23:04)
[2019-06-04] MEDS: INSULIN REGULAR 100 UNIT/ML SUBCUT SCH ×2 (00:23→06:25)
[2019-06-04 06:12] LABS: Prealbumin 30.1 MG/DL (20-40)
[2019-06-04] MEDS: LEVOTHYROXINE 100 MCG TABLET PO SCH (06:47)
[2019-06-04 07:34] VITALS: BP 123/73
[2019-06-04] MEDS: ENOXAPARIN 40 MG/0.4 ML SYRINGE SUBCUT SCH (07:34)
[2019-06-04] MEDS: FAMOTIDINE 20 MG/2 ML VIAL IV SCH (08:07)
[2019-06-04] MEDS: TAMSULOSIN 0.4 MG CAPSULE PO SCH (08:07)
[2019-06-04] MEDS: amLODIPine 5 MG TABLET PO SCH (08:07)
[2019-06-04] MEDS ORDERED: PNEUMOCOCCAL VACCINE (23 VALENT) 0.5 ML VIAL IM ONE (08:15)
== END 2019-06-04 10:03 | disposition home health service (06) | DRG 337 ==
LOC: N.ED 16:12 → N.EDINP 18:51 → N.3E 19:51 → N.ICU 05-18 16:46 → N.3E 05-19 09:41
PROVIDERS: ADMIT Family Medicine; ATTEND Surgery

== ENCOUNTER 2019-12-15 09:05 | Observation (INO) ==
[2019-12-15] MEDS ORDERED: oxyCODONE/ACETAMINOPHEN 5-325 MG TABLET PO STA (10:10)
[2019-12-15 10:48] LABS: ABG Base Excess 1.8 MMOL/L (-2.5-2.5); ABG HCO3 25.9 MMOL/L (20-26); ABG Oxygen Saturation 94.8 % (95-100); ABG PCO2 35.3 MM HG (35-48); ABG PH 7.461 (7.35-7.45); ABG TCO2 21.6 MMOL/L (23-27)
[2019-12-15 12:02] LABS: Basophils # 0.1 10*3/uL (0.0-0.2); Basophils % 0.4 % (0.0-0.8); Eosinophils # 0.3 10*3/uL (0.0-0.87); Eosinophils % 1.9 % (0.00-10.9); Hematocrit 43.2 VOL% (42.0-52.0); Hemoglobin 14.3 GM/DL (14.0-18.0); Immature Granulocytes Absolute 1.83 #; Lymphocytes # 2.4 10*3/uL (1.4-4.0); Mean Corpuscular HGB Conc 33.1 GM/DL (32-36); Mean Corpuscular Volume 98.2 FL (87-102); Mean Platelet Volume 10.3 FL (9.6-12.0); Monocytes % 9.8 % (1.7-12.7); Neutrophils % 55.9 % (38.7-73.9); Platelet Count 452 T/CUMM (130-400); Red Cell Distribution Width 15.7 % (9.3-17.3); White Blood Count 13.1 T/CUMM (4-12)
[2019-12-15 12:24] LABS: Band Neutrophils 8 % (0-10); Eosinophils 4 % (0-10); Lymphocytes 20 % (20-55); Metamyelocytes 3 %; Myelocytes 2 %; Promyelocytes 1 %; Segmented Neutrophils 54 % (50-85); Total Cells Counted 100
[2019-12-15 12:25] LABS: Anisocytosis 1+; Macrocytosis 1+; Platelet Estimate Normal; Polychromasia Slight
[2019-12-15 13:21] LABS: Ferritin 453.9 ng/ml (26-388)
[2019-12-15] MEDS ORDERED: PROMETHAZINE 25 MG/1 ML VIAL IM PRN (13:21)
[2019-12-15] MEDS ORDERED: ACETAMINOPHEN 325 MG TABLET PO PRN (13:21)
[2019-12-15 13:29] LABS: Bilirubin,Total 0.9 MG/DL (0.2-1.0); Calcium 9.5 MG/DL (8.5-10.1); Osmolality,Calculated 274.1 MOS/KG (273-304); Total Protein 7.9 G/DL (6.4-8.3)
[2019-12-15] MEDS ORDERED: ENOXAPARIN 40 MG/0.4 ML SYRINGE SUBCUT SCH (13:30)
[2019-12-15] MEDS ORDERED: SODIUM CHLORIDE 0.45% 1,000 ML IV SCH (13:30)
[2019-12-15] MEDS ORDERED: NITROGLYCERIN SL 0.4 MG TABLET SL PRN (14:48)
[2019-12-15 15:43] LABS: Troponin I < 0.015 NG/ML (0.00-0.045)
[2019-12-15] MEDS: oxyCODONE/ACETAMINOPHEN 5-325 MG TABLET PO PRN ×2 (17:38→21:49)
[2019-12-15] MEDS: ONDANSETRON 4 MG/2 ML VIAL IV PRN ×2 (17:38→22:47)
[2019-12-15 18:15] LABS: Troponin I < 0.015 NG/ML (0.00-0.045)
[2019-12-15 20:51] LABS: Troponin I < 0.015 NG/ML (0.00-0.045)
[2019-12-15] MEDS ORDERED: ATORVASTATIN 20 MG TABLET PO SCH (21:00)
[2019-12-15] MEDS ORDERED: rOPINIRole 0.25 MG TABLET PO SCH (21:00)
[2019-12-15] MEDS: POTASSIUM CHLORIDE 10 MEQ TABLET PO SCH (21:49)
[2019-12-16 01:00] LABS: Troponin I < 0.015 NG/ML (0.00-0.045)
[2019-12-16] MEDS: oxyCODONE/ACETAMINOPHEN 5-325 MG TABLET PO PRN ×2 (03:57→09:42)
[2019-12-16 06:55] LABS: Risk Ratio 7.5
[2019-12-16] MEDS ORDERED: LEVOTHYROXINE 100 MCG TABLET PO SCH (07:00)
[2019-12-16] MEDS ORDERED: amLODIPine 5 MG TABLET PO SCH (09:00)
[2019-12-16] MEDS ORDERED: NON-FORMULARY MEDICATION (Omeprazole 20 MG) PO SCH (09:00)
[2019-12-16] MEDS ORDERED: FINASTERIDE 5 MG TABLET PO SCH (09:00)
[2019-12-16] MEDS ORDERED: FUROSEMIDE 20 MG TABLET PO SCH (09:00)
[2019-12-16] MEDS ORDERED: TAMSULOSIN 0.4 MG CAPSULE PO SCH (09:00)
[2019-12-16] MEDS ORDERED: PANTOPRAZOLE 40 MG TABLET PO SCH (09:00)
[2019-12-16] MEDS ORDERED: METOPROLOL SUCCINATE XL 100 MG TABLET PO SCH (09:00)
[2019-12-16] MEDS ORDERED: ASPIRIN 325 MG TABLET PO SCH (09:00)
[2019-12-16 09:13] VITALS: BP 134/73
[2019-12-16] MEDS: POTASSIUM CHLORIDE 10 MEQ TABLET PO SCH (09:43)
[2019-12-16] MEDS ORDERED: FUROSEMIDE 40 MG TABLET PO SCH (12:00)
== END 2019-12-16 10:36 | disposition home or self-care (01) ==
LOC: N.EDINP 09:05 → N.ED 09:05 → N.TELES 13:49
PROVIDERS: ADMIT Family Medicine; ATTEND Family Medicine

== ENCOUNTER 2020-06-14 05:57 | Observation (INO) ==
[~2020-06-14 05:57] MED LIST: GENTAMICIN INJ 160 MG in SODIUM CHLORIDE 0.9% 100 ML IV ONE; LEVOFLOXACIN 500 MG TABLET PO ONE
[2020-06-14] MEDS ORDERED: cefTRIAXone 1,000 MG in SYRINGE 1 EACH IV ONE (07:25)
[2020-06-14] MEDS ORDERED: GENTAMICIN INJ 160 MG in SODIUM CHLORIDE 0.9% 100 ML IV ONE (07:26)
[2020-06-14] MEDS ORDERED: LACTATED RINGERS 1,000 ML IV SCH (07:30)
[2020-06-14] MEDS ORDERED: oxyCODONE/ACETAMINOPHEN 5-325 MG TABLET PO ONE (07:40)
[2020-06-14] MEDS ORDERED: FAMOTIDINE 20 MG TABLET PO ONE (07:41)
[2020-06-14] MEDS ORDERED: DIAZEPAM 5 MG TABLET PO ONE (07:41)
[2020-06-14] MEDS ORDERED: GENTAMICIN 80 MG/2 ML VIAL ONE (07:47)
[2020-06-14] MEDS ORDERED: GENTAMICIN INJ 200 MG in SODIUM CHLORIDE 0.9% 100 ML IV SCH (12:30)
[2020-06-14] MEDS: HYDROmorphone 2 MG/1 ML VIAL IV PRN ×3 (12:35→17:55)
[2020-06-14] MEDS: oxyCODONE/ACETAMINOPHEN 5-325 MG TABLET PO PRN ×2 (13:37→22:32)
[2020-06-14] MEDS ORDERED: LIDOCAINE 2% 5 ML VIAL ONE (13:59)
[2020-06-14] MEDS ORDERED: SEVOFLURANE 1 UNIT/15 MINUTE INH ONE (13:59)
[2020-06-14] MEDS ORDERED: fentaNYL 100 MCG/2 ML VIAL ONE (14:00)
[2020-06-14] MEDS ORDERED: ONDANSETRON 4 MG/2 ML VIAL ONE (14:01)
[2020-06-14] MEDS ORDERED: SUCCINYLCHOLINE 200 MG/10 ML VIAL ONE (14:01)
[2020-06-14] MEDS ORDERED: NEOSTIGMINE 10 MG/10 ML VIAL ONE (14:01)
[2020-06-14] MEDS ORDERED: PHENYLEPHRINE 10 MG/1 ML VIAL IV ONE (14:01)
[2020-06-14] MEDS ORDERED: ROCURONIUM 100 MG/10 ML VIAL IV ONE (14:01)
[2020-06-14] MEDS ORDERED: LACTATED RINGERS 1,000 ML IV ONE (14:01)
[2020-06-14] MEDS ORDERED: propofoL 200 MG/20 ML VIAL IV ONE (14:01)
[2020-06-14] MEDS ORDERED: GLYCOPYRROLATE 0.4 MG/2 ML VIAL ONE ×2 (14:01→14:02)
[2020-06-14] MEDS: SODIUM CHLORIDE 0.9% 1,000 ML IV SCH ×2 (15:22→20:34)
[2020-06-14] MEDS ORDERED: INFLUENZA VIRUS VACCINE 0.5 ML SYRINGE IM ONE (16:02)
[2020-06-14] MEDS: POTASSIUM CHLORIDE 10 MEQ TABLET PO SCH (20:21)
[2020-06-14] MEDS: ATORVASTATIN 20 MG TABLET PO SCH (20:22)
[2020-06-14] MEDS: rOPINIRole 1 MG TABLET PO SCH (20:27)
[2020-06-14] MEDS ORDERED: GENTAMICIN INJ 80 MG in PREMIX 1 EACH IV ONE (21:30)
[2020-06-15] MEDS: HYDROmorphone 2 MG/1 ML VIAL IV PRN ×5 (00:02→22:07)
[2020-06-15 05:30] LABS: Basophils % 0.5 % (0.0-0.8); Eosinophils # 0.3 10*3/uL (0.0-0.87); Eosinophils % 3.8 % (0.00-10.9); Hematocrit 36.2 VOL% (42.0-52.0); Hemoglobin 11.6 GM/DL (14.0-18.0); Immature Granulocytes % 0.3 %; Immature Granulocytes Absolute 0.02 #; Lymphocytes # 1.9 10*3/uL (1.4-4.0); Mean Corpuscular Volume 103.4 FL (87-102); Mean Platelet Volume 9.4 FL (9.6-12.0); Monocytes % 13.5 % (1.7-12.7); Neutrophils % 55.9 % (38.7-73.9); Platelet Count 223 T/CUMM (130-400); White Blood Count 7.3 T/CUMM (4-12)
[2020-06-15 05:46] LABS: Calcium 8.5 MG/DL (8.5-10.1); Osmolality,Calculated 280.4 MOS/KG (273-304)
[2020-06-15] MEDS: LEVOTHYROXINE 100 MCG TABLET PO SCH (06:12)
[2020-06-15] MEDS: SODIUM CHLORIDE 0.9% 1,000 ML IV SCH ×3 (06:13→22:18)
[2020-06-15] MEDS: FUROSEMIDE 40 MG TABLET PO SCH ×2 (07:29→11:27)
[2020-06-15] MEDS: TAMSULOSIN 0.4 MG CAPSULE PO SCH (08:54)
[2020-06-15] MEDS: amLODIPine 5 MG TABLET PO SCH (08:54)
[2020-06-15] MEDS: POTASSIUM CHLORIDE 10 MEQ TABLET PO SCH ×2 (08:54→22:08)
[2020-06-15] MEDS: METOPROLOL SUCCINATE XL 100 MG TABLET PO SCH (08:55)
[2020-06-15] MEDS: PANTOPRAZOLE 40 MG TABLET PO SCH (08:55)
[2020-06-15] MEDS: cefTRIAXone 1,000 MG in SYRINGE 1 EACH IV SCH (08:56)
[2020-06-15] MEDS: ONDANSETRON 4 MG/2 ML VIAL IV PRN ×3 (09:36→22:07)
[2020-06-15] MEDS: FUROSEMIDE 20 MG TABLET PO SCH (09:37)
[2020-06-15] MEDS: FINASTERIDE 5 MG TABLET PO SCH (11:27)
[2020-06-15] MEDS: rOPINIRole 1 MG TABLET PO SCH (22:08)
[2020-06-15] MEDS: ATORVASTATIN 20 MG TABLET PO SCH (22:08)
[2020-06-16] MEDS: HYDROmorphone 2 MG/1 ML VIAL IV PRN (03:30)
[2020-06-16] MEDS: SODIUM CHLORIDE 0.9% 1,000 ML IV SCH (06:27)
[2020-06-16] MEDS: POTASSIUM CHLORIDE 10 MEQ TABLET PO SCH (08:37)
[2020-06-16] MEDS: FINASTERIDE 5 MG TABLET PO SCH (08:37)
[2020-06-16] MEDS: TAMSULOSIN 0.4 MG CAPSULE PO SCH (08:37)
[2020-06-16] MEDS: LEVOTHYROXINE 100 MCG TABLET PO SCH (08:37)
[2020-06-16] MEDS: amLODIPine 5 MG TABLET PO SCH (08:37)
[2020-06-16] MEDS: FUROSEMIDE 20 MG TABLET PO SCH (08:37)
[2020-06-16] MEDS: METOPROLOL SUCCINATE XL 100 MG TABLET PO SCH (08:38)
[2020-06-16] MEDS: PANTOPRAZOLE 40 MG TABLET PO SCH (08:38)
[2020-06-16] MEDS: cefTRIAXone 1,000 MG in SYRINGE 1 EACH IV SCH (08:38)
[2020-06-16 11:28] VITALS: BP 135/79
[2020-06-16] MEDS: FUROSEMIDE 40 MG TABLET PO SCH (11:48)
== END 2020-06-16 12:11 | disposition home or self-care (01) ==
LOC: N.SDSINP 05:57 → N.4E 05:57 → N.OR 05:57 → N.SDSINP 05:58 → N.OR 10:37 → N.4E 13:02
PROVIDERS: ADMIT Surgery; ATTEND Surgery